=== PATIENT | female | born 1935 | race Caucasian/White ===

== ENCOUNTER 2019-04-09 08:16 | Day surgery (SDC) | payer MEDICARE, OTHER, SELFPAY ==
[2019-02-23 14:57] VITALS: BMI 23.0
[2019-04-09 08:39] VITALS: BP 165/84; PULSE 91; RESP 15; TEMP 36.1; O2SAT 100; BMI 22.5
[2019-04-09] MEDS: LACTATED RINGERS 1,000 ML 120 ML IV ×2 (09:30→10:55)
--- NOTE | 2019-04-09 09:51 | PM.PREOP ---
Pre-operative Note Interval Note History & Physical reviewed/Exam performed by Physician: Yes Changes to H&P: No
--- NOTE | 2019-04-09 09:52 | PM.OP.1 ---
Operative Date/Time/Diagnoses Date of procedure: 04/09/19 Time of procedure: 09:52 Pre-op diagnosis: Right third hammertoe Post-op diagnosis: same Procedure & Clinicians Procedure: Right third toe proximal and distal interphalangeal joint fusion Same procedure as scheduled: Yes Indications: Painful right third hammertoe Surgeon: Diana Theodore Click Yes if Unassisted: Yes Anesthesia Type: MAC +/- and Sedation Operative Notes Closure Type: primary Specimen(s): none sent Prosthetic devices, grafts, tissues, transplants, or devices: [place] 2.0 partially-threaded cannulated screw 4-0 vicryl, 4-0 nylon Estimated Blood Loss (mL): 10 Blood products transfused: none Procedure in detail: The patient was brought to the operating room and placed on the operating table in the supine position. After induction of mild IV sedation, local anesthesia using the injectables in the nursing record is obtained to the 3rd toe of the right foot. A tourniquet was placed about the patient's right ankle. The foot and ankle were prepped and draped in the usual aseptic manner. The tourniquet was inflated. Incision was made over the dorsal aspect of the 3rd proximal and distal interphalangeal joints. The incision was deepened through subcutaneous tissues being careful to identify and retract all vital neurovascular structures. All bleeders were cauterized and ligated necessary. Over the proximal interphalangeal joint, the extensor was reflected proximally and distally and once the collateral ligaments were released the head of the proximal phalanx and the base of the intermediate phalanx were removed using a saw. The same procedure was performed to the distal interphalangeal joint. the area was irrigated with copious amounts of normal sterile saline. The foot was loaded and at this point appeared that alignment would be good without having to do the flexor tendon transfer. Using the aid of C-arm a guidewire was placed at the base of the intermediate phalanx and drawn out to the tip of the toe. This was then retrograded proximally into the proximal phalanx and pressure was placed across the joints. again verifying this on fluoroscopy for good alignment and loading the foot, using standard technique the drill was placed from the distal tip of the toe proximally and after measurements a cannulated 3 screw was placed. This was verified to be in good alignment and compression although there was such a short distal phalanx that there was very little compressibility available here. The guidewire was removed and final pictures were taken in three views on fluoroscopy. Repair of the extensor tendon was performed using Vicryl and the tourniquet was deflated, prompt hyperemic response was seen to the foot. Subcutaneous closure was performed using Vicryl and nylon was used to close the skin. A sterile lightly compressive dressing was placed on the foot and she was transferred to the PACU with vital signs stable and vascular status intact. Complications: none Post-operative Condition: stable Disposition: PACU Plan for aftercare: Following a period of postoperative monitoring, the patient be discharged home on written and oral postoperative instructions including keeping the dressing dry and intact, avoiding significant ambulation on the foot, icing and elevating the foot when seated home. DVT prevention techniques have been reviewed. She did not bring her postoperative shoe today so instructions were given on how to apply this and use it with her safety dressings on today. She also had a chance to visit with physical therapy to verify her strength and confidence in use of her walker. For the 1st postoperative visit the dressing will be likely changed, and close to the 2nd postoperative week we will likely remove the sutures. Standing films closer to the 4th week postoperatively.
[2019-04-09] MEDS: CLINDAMYCIN 600 MG/50 ML PIGGYBACK 50 MG IV (09:58)
--- NOTE | 2019-04-09 10:25 | SUR.OPER ---
Supine on padded OR bed, head on pillow, arms secured on padded arm boards at <90 degrees abduction, legs uncrossed, safety belt at thigh, tape over blanket over lower legs.
[2019-04-09] MEDS: LIDOCAINE 2% INJ MDV 20 ML INJ (10:30)
[2019-04-09] MEDS: BUPIVACAINE 0.5% (PF) VIAL 10 ML INJ (10:31)
[2019-04-09 11:23] VITALS: BP 119/71; PULSE 71; RESP 12; TEMP 36.7; O2SAT 95
--- NOTE | 2019-04-09 11:28 | SUR.PHASEII ---
Patient arrived from OR. Awake, VS stable. Denied pain.
[2019-04-09 11:29] VITALS: BP 134/81; PULSE 84; O2SAT 96
[2019-04-09] MEDS: HYDROCODONE/ACET 5/325 TABLET 1 TAB PO (11:58)
--- NOTE | 2019-04-09 12:20 | PT.IIE ---
Current Diagnoses Corns and callosities (04/09/19) Other hammer toe(s) (acquired), right foot (04/09/19) Pain in right foot (04/09/19) Pain in right toe(s) (04/09/19) Surgery Performed Operation Date: 04/09/19 09:45 Actual Procedures p 3rd toe proximal and distal interphalangeal joint fusion(Right) - Diana Theodore DPM Surgical History (Last Updated 02/23/19 @ 15:02 by Florence Davis RN) Hx of bilateral cataract extraction (Acute ~2012) Physical Therapy Inpatient Evaluation/Re-Eval M1 PT/OT-IP Prior Functional Status Start: 04/09/19 14:56 Freq: NEEDED Status: Active Protocol: Document 04/09/19 12:20 AB (Rec: 04/09/19 15:26 AB [id number]) Medical Review Prior Functional Status Medical History Reviewed Yes Communication able to make needs known Mobility and Gait pt stated that she is independent with all mobilities and ambulation without AD Social History Household Members spouse Living Arrangements House Number of Floors (Floors) One Floor Number of Stairs To Enter/Railing? no step to enter Home Environment Standard Height Toilet,Walk in Shower,Built-In Shower Seat Home Equipment Front Wheel Walker,Hand Held Shower,Grab Bars In Shower Employment Status Retired Additional Social History Comment has a knee scooter M2 PT-IP Current Condition Start: 04/09/19 14:56 Freq: NEEDED Status: Active Protocol: Document 04/09/19 12:20 AB (Rec: 04/09/19 15:26 AB [id number]) Physical Therapy Current Condition Current Condition Evaluation Date 04/09/19 Treatment Diagnosis s/p R 3rd toe prox/dist jt fusion; difficulty in walking Onset Date 04/09/2019 Precautions Brace has post-op shoe Weight Bearing Status Weight Bearing Status Partial Weight Bearing Allowed Weight Bearing Amount (enter % per doctor's instructions: pt or #) (%) can put weight on RLE with foot flat but with least weight possible but can put weight on RLE if needed. M3 PT-IP Subjective Start: 04/09/19 14:56 Freq: NEEDED Status: Active Protocol: Document 04/09/19 12:20 AB (Rec: 04/09/19 15:26 AB [id number]) Subjective Physical Therapy Visit Type Type Initial Evaluation Visit Start Time 12:20 Visit Stop Time 13:01 Total Visit Minutes 41 Number of AUTO WHEEL ALIGNMENT SPECIALIST Visits 0 Physical Therapy Visit Comments Patient Comments pt agreeable to do PT Therapy Pain Assessment Pain Present Pain Present Denied Pain M4 PT-IP Mobility and Gait Start: 04/09/19 14:56 Freq: NEEDED Status: Active Protocol: Document 04/09/19 12:20 AB (Rec: 04/09/19 15:26 AB [id number]) PT-Bed Mobility Assessment Supine to Sit Supine to Sit Independent Sit to Supine Sit to Supine Independent PT-Transfer Assessment Sit to and From Stand Sit to and from Stand Contact Guard Assistance, Minimal Assistance,1 Person Assistance,Use of Upper Extremities Equipment Transfer Assistive Device Gait Belt,Front Wheeled Walker Orthotic/Prosthetic Devices or Brace: No Comments Mobility Comments pt completed supine <>sit independent. educated on weight bearing restrictions on RLE. completed sit <>stand x 5 reps with min A with initial reps but afterwards, was able to complete with CGA and cues. educated spouse to cue pt with restrictions and agreed. Gait training conducted using FWW. attempted NWB RLE initially but pt unable to take a take and maintain. 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 Instructed on how to take steps with weigth bearing restriction. pt requiring mod A initially using FWW ~ 10 ft. instructed pt again and completed ambulation using FWW ~ 25 ft CGA. Pt also has a knee scooter and pt completed ambulation using knee scooter CGA ~ 50 ft. cued for safety especially with turns. pt with decrease safety awareness and requires constant cues for safety. instructed spouse to provide pt necessary assistance and agreed. pt completed sit <>stand x 2 reps and positioning RLE into the knee scooter, requiring CGA to min A. instructed spouse to stabize knee scooter for pt and completed. pt requested to use the toilet and ambulated using knee scooter CGA. required cues for turns. completed toileting SBA. ambulated out towards the bed CGA and cues. Pt and spouse with no further concerns/ questions. informed nurse that PT eval completed. Gait Assessment Gait Gait Assistance Required: Contact Guard Assist,Minimum Assistance Distance (Feet) 50 Able to Maintain Weight Bearing Status Yes During Gait Assistive Devices Assistive Device Gait Belt,Front Wheeled Walker Gait Deviations General Gait Pattern Decreased Stride Length, Decreased Feet Clearance Factors Limiting Gait Function Factors Limiting Gait Function Decreased Activity Tolerance, Decreased Strength,Poor Balance,Poor Safety Awareness Comments Gait Comments pt also use knee scooter pls refer to mobility section for details PT-Balance Assessment Sitting Balance and Reactions Static Sitting Balance Ability Normal Dynamic Sitting Balance Ability Normal Standing Balance and Reactions Static Standing Balance Ability Fair Dynamic Standing Balance Ability Fair Device Used FWW M5 PT-IP Objective Assessments Start: 04/09/19 14:56 Freq: NEEDED Status: Active Protocol: Document 04/09/19 12:20 AB (Rec: 04/09/19 15:26 AB [id number]) Orientation Orientation/Cognition Level of Alertness Alert Orientation Name,Place,Situation Language Function Ability No Deficits Noted Safety Awareness Decreased Safety Awareness Memory Description No Deficits Noted Gross Range of Motion Lower Extremity ROM Assessment Right Impaired Impairments R ankle NT due to recent surgery Strength Lower Extremity Strength Hip 4-/5 Knee 4-/5 Ankle R ankle NT Coordination Assessment Gross Coordination Gross Coordination WNL Sensation Assessment Sensation Gross Sensation WNL Muscle Tone Muscle Tone WNL Yes M6 PT-IP Treatment Start: 04/09/19 14:56 Freq: NEEDED Status: Active Protocol: Document 04/09/19 12:20 AB (Rec: 04/09/19 15:26 AB [id number]) Physical Therapy Treatment Education Education Provided Precautions,Weight Bearing Status,Safety M7 PT-IP Assessment and Plan Start: 04/09/19 14:56 Freq: NEEDED Status: Active Protocol: Document 04/09/19 12:20 AB (Rec: 04/09/19 15:26 AB [id number]) PT Summary Assessment and Plan Potential Rehabilitation Potential Good Status of Condition at Evaluation Stable Summary Impairments Pain,ROM,Strength,Balance, Coordination,Cognition,Bed Mobility,Transfers,Gait, Activity Tolerance Assessment Summary Gait training completed using FWW and knee scooter. educated spouse on how to assist pt. pt plans to go home today and spouse assisting. Goals Transfer Goal Independent,Front Wheeled Walker Gait Goal Independent,Front Wheel Walker Gait Distance 50 Days to Meet Goals 3 Frequency of Treatment Frequency Of Treatment Twice a Day Treatment Plan Physical Therapy Treatment Plan Bed Mobility Training,Transfer Training,Gait Training, Therapeutic Exercise,Balance Retraining,Post Op Education, Discharge Planning,Hot or Cold Pack,Neuromuscular Re-ed, Coordination Retraining,Manual Therapy Recommendations To Nursing Amount of Assist Needed 1 Person Assist Discharge Recommendations PT Discharge Recommendations Home with Assistance, Outpatient PT Transportation Needs at Discharge Private Vehicle
[2019-04-09 12:23] VITALS: BP 131/71; PULSE 81; RESP 16; TEMP 36.1; O2SAT 95
--- NOTE | 2019-04-09 12:30 | SUR.PHASEII ---
PT here to work with patient.
== END 2019-04-09 12:45 | disposition home or self-care (01) ==
PROVIDERS: Referring Provider Podiatrist; Visit Provider Podiatrist
PROC: (CPT 28285; principal; 2019-04-09 09:45)
DX: M20.41 Other hammer toe(s) (acquired), right foot (principal); L84 Corns and callosities
CPT/HCPCS: 28285; 97161; 97530; J2250; J2405; J2704; J3010

== ENCOUNTER 2024-06-03 08:29 | Inpatient (IN) | payer MEDICARE, SELFPAY ==
[2024-06-03] VITALS (9 sets, daily range): BP systolic 134–144; BP diastolic 65–97; PULSE 79–98; RESP 16–28; TEMP 36.3–37.4; O2SAT 89–100; BMI 24.7
--- NOTE | 2024-06-03 08:29 | DI.RAD.S_ITS ---
PROCEDURE: XR HIP W PEL IF DONE LT 2V INDICATIONS: injury TECHNIQUE: AP pelvis with lateral view of the left hip. COMPARISON: None. FINDINGS: Bones: Mildly displaced and impacted transcervical fracture of the left femoral neck. Pelvic ring appears intact. No suspicious bony lesions. Degenerative changes are seen in the included spine and the hips. Soft tissues: The visualized bowel gas pattern is normal. No suspicious soft tissue calcifications. IMPRESSION: Mildly displaced and impacted transcervical fracture of the left femoral neck. Approved by: Quinton Peters M.D. on 06/03/2024 at 9:07
--- NOTE | 2024-06-03 08:38 | ED.FALL ---
HPI - Fall General Chief Complaint: Fall Stated Complaint: fall OOB L hip short/rotated Time Seen by Provider: 06/03/24 08:37 Source: patient Mode of arrival: EMS History of Present Illness HPI Narrative: 88-year-old female with history of pancreatic cancer, left anterior chest Port-A-Cath site, had single round of chemotherapy about 2 weeks ago that made her hair fall out, she has decided to have no further chemotherapy, [place] [facility], PCP had recently retired. This morning had a fall getting out of bed, complained of pain to her left hip. No prior hip surgeries or dislocation or problems with that left hip. No other injuries. Family later arriving thought patient was taking Eliquis chronic anticoagulation, but not aware that she would be taking any warfarin. PCP might now be her palliative care provider on [facility], as her regular PCP had recently retired. Related Data Home Medications Medication Instructions Recorded Confirmed acetaminophen 500 mg tablet 500 mg PO Q6H PRN Pain (Scale 04/09/19 04/09/19 (Tylenol Extra Strength) Score 1-3) cholecalciferol (vitamin D3) 50 50 mcg PO DAILY 04/09/19 04/09/19 mcg (2,000 unit) capsule (Vitamin D3) lorazepam 0.5 mg tablet 0.5 mg PO DAILY PRN Anxiety 04/09/19 04/09/19 multivitamin 1 tab PO DAILY 04/09/19 04/09/19 omeprazole magnesium 20 mg 20 mg PO Q OTHER DAY 04/09/19 04/09/19 tablet,delayed release (Prilosec OTC) vit C 250 mg-vit E 90 mg-zinc 40 1 tab PO BID 04/09/19 04/09/19 mg-copper 1 [id number] capsule (PreserVision AREDS-2) Allergies Allergy/AdvReac Type Severity Reaction Status Date / Time nitrofurantoin Allergy Fever Verified 04/09/19 09:01 [From Macrobid] Penicillins Allergy Verified 04/09/19 09:01 erythromycin base AdvReac Nausea Verified 04/09/19 09:01 indomethacin [From Indocin] AdvReac Dizziness Verified 04/09/19 09:01 Gowyfpe-ZIZ-AnH Reductase AdvReac Verified 04/09/19 09:01 Inhibitor [Cqbbyee-Kjg-Oiu Reductase Inhibitor] Sulfa (Sulfonamide AdvReac Diarrhea Verified 04/09/19 09:01 Antibiotics) Patient History Surgical History (Updated 02/23/19 @ 15:02 by Florence Davis RN) Hx of bilateral cataract extraction (~2011) Social History household members: spouse Smoking Status: Former smoker alcohol intake: current Smoking Status: Former smoker alcohol intake frequency: a few times a month Exam Narrative Exam Narrative: GENERAL: Well-developed patient, in mild distress. HEAD: Atraumatic. Normocephalic. EYES: Pupils equal round and reactive. Extraocular motions intact. No scleral icterus. No injection or drainage. ENT: Nose without bleeding, purulent drainage. Throat without erythema, tonsillar hypertrophy or exudate. Airway patent. NECK: Trachea midline. Non tender CARDIOVASCULAR: Regular rate and rhythm without murmurs, gallops, or rubs. RESPIRATORY: Clear to auscultation. Breath sounds equal bilaterally. No wheezes, rales, or rhonchi. Left upper anterior chest Port-A-Cath, site looks clean without redness or swelling GASTROINTESTINAL: Abdomen soft, non-tender, nondistended. EXTREMITIES: No edema or joint tenderness. BACK: Nontender without deformity or crepitance. No flank tenderness. NEURO: AOx3. Motor functions grossly nonfocal SKIN: No rash or erythema of visible areas Initial Vital Signs Initial Vital Signs: Vital Signs Temperature 98.4 F 06/03/24 08:22 Pulse Rate 90 06/03/24 08:22 Respiratory Rate 16 06/03/24 08:22 Blood Pressure 140/65 06/03/24 08:22 Pulse Oximetry 100 06/03/24 08:22 Oxygen Delivery Method Room Air 06/03/24 08:22 Course Orders Ordered: ED Orders 06/03/24 08:29 XR hip w pel if done LT 2V Stat 06/03/24 08:30 CBC Auto Diff [Complete Blood Count AUTO DIFF] Stat CMP [Comprehensive Metabolic Panel] Stat Prothrombin Time INR Stat 06/03/24 08:59 Urinalysis and Microscopic Stat EKG-12 Lead Stat Acetaminophen (Acetaminophen 325 Mg Tablet) 650 mg PO Q6H PRN PRN Reason: Fever/Mild Pain (1-3) Docusate Sodium (Docusate 100 Mg Capsule) 100 mg PO BID KATHY Hydromorphone HCl (Hydromorphone 0.5 Mg Inj) 0.5 mg IV Q2H PRN PRN Reason: Pain, Severe (7-10) Last Admin: 06/03/24 10:12 Dose: 0.5 mg Documented By: RLS POTASSIUM CHLORIDE IN WATER (Potassium Cl 10 Meq/100 Ml Mari) 10 meq in 100 mls @ 100 mls/hr IV Q1H KATHY Stop: 06/03/24 11:29 Last Admin: 06/03/24 09:48 Dose: 100 mls/hr Documented By: RLS Sodium Chloride (Normal Saline 0.9%) 1,000 mls @ 500 mls/hr IV BOLUS ONE Stop: 06/03/24 11:16 Last Admin: 06/03/24 09:47 Dose: 500 mls/hr Documented By: RLS Sodium Chloride (Normal Saline 0.9%) 1,000 mls @ 100 mls/hr IV CONT KATHY Naloxone HCl (Naloxone 0.4 Mg/Ml Vial) 0.2 mg IV Q2MIN PRN PRN Reason: Opiate Reversal Oxycodone HCl (Oxycodone Ir 10 Mg Tablet) 10 mg PO Q3H PRN PRN Reason: Pain, Severe (7-10) Discontinued Medications Hydromorphone HCl (Hydromorphone 0.5 Mg Inj) 0.5 mg IV NOW ONE Stop: 06/03/24 10:00 Vital Signs Vital signs: Vital Signs - 8 hr 06/03/24 08:22 06/03/24 08:24 06/03/24 08:30 Temperature 98.4 F Pulse Rate 90 90 81 Respiratory Rate 16 22 Blood Pressure 140/65 Pulse Oximetry 100 89 L 98 Oxygen Delivery Method Room Air 06/03/24 08:30 06/03/24 09:00 Temperature Pulse Rate 79 Respiratory Rate 19 Blood Pressure 138/65 Pulse Oximetry 91 Oxygen Delivery Method MDM - Fall Lab Data Attestation: I reviewed the patient's lab results. Lab results narrative: White blood cell count 400, no comparisons. Hemoglobin 9.6 with platelets 64,000. BUN 26 with creatinine 0.74 normal renal function. Sodium 129 with glucose 113 low. Potassium 3.1 low. Serum CO2 26. BUN 26 with creatinine 0.74 noted. Normal liver functions. Albumin 2.4 low. 06/03/24 08:30 06/03/24 08:30 Labs: Lab Results 04/10/25 Range/Units 08:30 WBC 0.4 L* (4.5-11.0) X10^3/uL RBC 2.93 L (4.0-5.2) X10^6/uL Hgb 9.6 L (12.0-16.0) g/dL Hct 28.1 L (36-46) % MCV 96.0 (80-100) fL MCH 32.8 (26-34) PG MCHC 34.2 (30-36) % RDW 15.2 H (11.6-14.8) % Plt Count 64 L (150-400) X10^3/uL Neut % (Auto) 46.4 L (50-75) % Lymph % (Auto) 18.8 L (25-40) % Armstrong % (Auto) 33.4 H (3-14) % Eos % (Auto) 1.3 L (2-4) % Baso % (Auto) 0.1 (0-2) % Neut # (Auto) 200 L (1161-6518) /uL Lymph # (Auto) 100 L (1439-1286) /uL Armstrong # (Auto) 100 (0-900) /uL Eos # (Auto) 0 (0-450) /uL Baso # (Auto) 0 (0-100) /uL PT 27.2 H (9.4-12.5) SECONDS INR 2.5 H (0.9-1.3) Sodium 129 L (137-145) mmol/L Potassium 3.1 L (3.4-5.1) mmol/L Chloride 98 (98-107) mmol/L Carbon Dioxide 26 (22-32) mmol/L BUN 26 H (7-17) mg/dL Creatinine 0.74 (0.52-1.04) mg/dL Estimated GFR > 60 (>60) mL/min BUN/Creatinine Ratio 35.1 H (6-22) Glucose 113 H (80-110) mg/dL Calcium 8.3 L (8.4-10.2) mg/dL Total Bilirubin 1.2 (0.2-1.3) mg/dL AST 23 (14-36) IU/L ALT 26 (<35) IU/L Alkaline Phosphatase 126 (38-126) U/L Total Protein 4.8 L (6.3-8.2) g/dL Albumin 2.5 L (3.5-5.0) g/dL Globulin 2.3 (1.7-4.1) g/dL Albumin/Globulin Ratio 1.1 (1.0-2.8) MDM Narrative Medical decision making narrative: 88-year-old female with history of pancreatic cancer had 1st/only round of IV chemotherapy 2 weeks ago via left anterior chest Port-A-Cath site, has decided not to continue any chemotherapy, followed by palliative care service, had fall getting out of bed this morning at her home on [facility], complains of left hip pain, transport by EMS. Has some shortening left lower extremity compared to right, some tenderness left anterior and left retro trochanteric region. No skin abrasion changes. X-ray left hip/pelvis ordered. X-ray left hip shows impacted femoral neck fracture. See radiology report. Pre-operative studies ordered. Laboratory data: White blood cell count 400, no comparisons. Hemoglobin 9.6 with platelets 64,000. BUN 26 with creatinine 0.74 normal renal function. Sodium 129 with glucose 113 low. Potassium 3.1 low. Serum CO2 26. BUN 26 with creatinine 0.74 noted. Normal liver functions. Albumin 2.4 low. CBC shows white blood cell count 400. Neutropenic precautions ordered. INR elevated, liver functions unremarkable, warfarin not listed on medication triage list. Unclear if patient would be a candidate for surgical intervention. Will not reverse elevated INR for now. Await call back from orthopedic surgery, Dr. Begum is currently in the operating room. We will query hospitalist. Low potassium, IV repletion. Keep NPO until sergical plan clarifed. Hyponatremia noted, IV fluid bolus 500ml NS ordered for now. No comparison labs located in our EHR. 914, case discussed with hospitalist Dr. Ritter who accepts patient for admission, also feels the patient may not be a surgical candidate. He stated that he will coordinate with Orthopedic surgery when out of the operating room. Critical Care Time Critical Care Time Critical Care Time: No Discharge Plan Departure Patient Disposition: Admitted As Inpatient Clinical Impression: Closed fracture of left hip, Neutropenia, History of pancreatic cancer, Hyponatremia, Hypokalemia, Coagulopathy Admit Date/Time: 06/03/24 09:10 Admit Provider: Preet Ritter
[2024-06-03 09:05] LABS: INR 2.5 (0.9-1.3); Prothrombin Time 27.2 SECONDS (9.4-12.5)
[2024-06-03 09:07] LABS: Add Manual Diff / Slide Review NO; Basophils Absolute Auto 0 /uL (0-100); Basophils Percent Auto 0.1 % (0-2); Eosinophils Absolute Auto 0 /uL (0-450); Eosinophils Percent Auto 1.3 % (2-4); Hematocrit 28.1 % (36-46); Hemoglobin 9.6 g/dL (12.0-16.0); Lymphocytes Absolute Auto 100 /uL (1100-4500); Lymphocytes Percent Auto 18.8 % (25-40); Mean Corpuscular HGB Conc 34.2 % (30-36); Mean Corpuscular Hemoglobin 32.8 PG (26-34); Monocytes Absolute Auto 100 /uL (0-900); Monocytes Percent Auto 33.4 % (3-14); Neutrophils Absolute Auto 200 /uL (1500-7000); Neutrophils Percent Auto 46.4 % (50-75); Platelet Count 64 X10^3/uL (150-400); Red Blood Cell Count 2.93 X10^6/uL (4.0-5.2); Red Cell Distribution Width 15.2 % (11.6-14.8)
[2024-06-03 09:09] LABS: White Blood Cell Count 0.4 X10^3/uL (4.5-11.0)
[2024-06-03 09:10] LABS: Alanine Aminotransferase 26 IU/L (<35); Albumin 2.5 g/dL (3.5-5.0); Albumin Globulin Ratio 1.1 (1.0-2.8); Alkaline Phosphatase 126 U/L (38-126); Aspartate Aminotransferase 23 IU/L (14-36); BUN Creatinine Ratio 35.1 (6-22); Bilirubin Total 1.2 mg/dL (0.2-1.3); Blood Urea Nitrogen 26 mg/dL (7-17); Calcium 8.3 mg/dL (8.4-10.2); Carbon Dioxide 26 mmol/L (22-32); Chloride 98 mmol/L (98-107); Estimated Glomerular Filt Rate > 60 mL/min (>60); Globulin 2.3 g/dL (1.7-4.1); Glucose 113 mg/dL (80-110); HEMOLYSIS < 15 (0-50); Potassium 3.1 mmol/L (3.4-5.1); Sodium 129 mmol/L (137-145); Total Protein 4.8 g/dL (6.3-8.2)
[2024-06-03] MEDS: SODIUM CHLORIDE 0.9% 1,000 ML 500 ML IV (09:47)
[2024-06-03] MEDS: POTASSIUM CHLORIDE IN WATER 10 MEQ/100 ML PIGGYBACK 100 MEQ IV ×4 (09:48→21:21)
[2024-06-03] MEDS: HYDROMORPHONE 0.5 MG INJ IV (10:12)
--- NOTE | 2024-06-03 15:01 | PM.HP.1 ---
History of Present Illness History of Present Illness Date Patient Seen: 06/03/24 Chief complaint: fall OOB L hip short/rotated Narrative: Chief complaint: Left hip pain after ground level fall due to impacted femoral neck fracture in a patient with neutropenia following chemotherapy for pancreatic carcinoma and anticoagulated History of present illness: A 62-year-old female with history of pancreatic cancer followed by Dr. Kris pérez at [facility] (telephone [phone]) slipped and fell this morning on her left side with severe hip pain. She was brought to the emergency department were hip film demonstrated impacted femoral neck fracture of the left hip. She is on palliative therapy her PCP has retired and is being followed by palliative care doctor. Patient has been functional however manages her activities of daily living independently including cooking for herself in maintaining her house. In addition to the hip fracture significant findings on evaluation in the ED notable for a white count of 0.4 with 46% neutrophils platelet count of 62 PT INR 2.5 and albumin of 2.5 X-ray was viewed by Orthopedic surgery on-call and if this were to go to surgery it would require bipolar hip replacement Review of systems: General no unusual weight loss fever chills headache No difficulty swallowing dysphagia No chest pain palpitations No cough or shortness a breath new line No abdominal pain nausea vomiting diarrhea No urinary symptoms No focal neurologic symptoms Physical exam: Elderly female no acute distress new line 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 She has an impacted left femoral neck fracture which will require a bipolar hip replacement.: With leukopenia neutropenia presently this would be a high risk surgery. Risk might be mitigated with samaritan of white blood cell count and reversal of coagulopathy. I am waiting a call back from her oncologist to discuss how this might be accomplished. The pharmacy has available here granulocyte colony-stimulating factor Granix and Stimullex 300 mcg. We also have Kcentra and vitamin K and FFP to reverse the anticoagulation from apixaban. Initial discussion with patient and family all of whom were present and in consensus of the following: No emergent surgery necessarily indicated at this time and higher risk than desired to take by the patient Patient would like to possibly mitigate risk with correcting leukopenia and coagulopathy and then consider surgery depending on whether she feels strong enough to undergo the surgery and rehabilitation Paroxysmal atrial fibrillation: On apixaban for CVA prophylaxis which we will hold and reverse anticoagulation if needed new line Currently in sinus rhythm DVT prophylaxis covered with anticoagulation Do not resuscitate Greater than 55 minutes was involved in managing this patient including discussion with multiple consultants reviewing the chart patient and family [facility] Surgical History (Updated 02/23/19 @ 15:02 by Florence Davis RN) Hx of bilateral cataract extraction (~2011) Social History household members: spouse Smoking Status: Former smoker alcohol intake: current Meds Home Medications and Allergies Home Medications Medication Instructions Recorded Confirmed Type acetaminophen 500 mg tablet 500 mg PO Q6H PRN Pain (Scale 04/09/19 06/03/24 History (Tylenol Extra Strength) Score 1-3) cholecalciferol (vitamin D3) 50 50 mcg PO DAILY 04/09/19 06/03/24 History mcg (2,000 unit) capsule (Vitamin D3) vit C 250 mg-vit E 90 mg-zinc 40 1 tab PO BID 04/09/19 06/03/24 History mg-copper 1 [id number] capsule (PreserVision AREDS-2) apixaban 5 mg tablet (Eliquis) 5 mg PO BID 06/03/24 06/03/24 History diltiazem HCl 240 mg 240 mg PO DAILY 06/03/24 06/03/24 History capsule,extended release 24 hr furosemide 20 mg tablet 20 mg PO DAILY PRN edema 06/03/24 06/03/24 History ondansetron 8 mg disintegrating 8 mg PO Q8H PRN nausea/vomiting 06/03/24 06/03/24 History tablet potassium chloride 20 mEq 20 meq PO DAILY 06/03/24 06/03/24 History tablet,extended release Allergies Allergy/AdvReac Type Severity Reaction Status Date / Time nitrofurantoin Allergy Intermediate Fever Verified 06/03/24 13:24 [From Macrobid] Penicillins Allergy Intermediate mouth Verified 06/03/24 13:24 tingling erythromycin base AdvReac Nausea Verified 02/14/20 09:01 indomethacin [From Indocin] AdvReac Dizziness Verified 04/09/19 09:01 Lllhgjo-AST-BrS Reductase AdvReac Verified 04/09/19 09:01 Inhibitor [Nhestny-Vpk-Izt Reductase Inhibitor] Sulfa (Sulfonamide AdvReac Diarrhea Verified 04/09/19 09:01 Antibiotics) Exam Vital Signs (past 8 hours): - 06/03/24 08:22 06/03/24 08:24 06/03/24 08:30 Temperature 98.4 F Pulse Rate 90 90 81 Respiratory Rate 16 22 Blood Pressure 140/65 Pulse Oximetry 100 89 L 98 Oxygen Delivery Method Room Air 06/03/24 08:30 06/03/24 09:00 06/03/24 09:30 Temperature Pulse Rate 79 80 Respiratory Rate 19 24 Blood Pressure 138/65 Pulse Oximetry 91 92 Oxygen Delivery Method 06/03/24 10:00 Temperature Pulse Rate 81 Respiratory Rate 28 H Blood Pressure Pulse Oximetry Oxygen Delivery Method Oxygen Delivery Method Room Air Objective Labs 06/03/24 08:30 06/03/24 08:30 Labs: Laboratory Results - last 24 hr 06/03/24 08:30 WBC 0.4 L* RBC 2.93 L Hgb 9.6 L Hct 28.1 L MCV 96.0 MCH 32.8 MCHC 34.2 RDW 15.2 H Plt Count 64 L Neut % (Auto) 46.4 L Lymph % (Auto) 18.8 L [place] % (Auto) 33.4 H Eos % (Auto) 1.3 L Baso % (Auto) 0.1 Neut # (Auto) 200 L Lymph # (Auto) 100 L [place] # (Auto) 100 Eos # (Auto) 0 Baso # (Auto) 0 PT 27.2 H INR 2.5 H Sodium 129 L Potassium 3.1 L Chloride 98 Carbon Dioxide 26 BUN 26 H Creatinine 0.74 Estimated GFR > 60 BUN/Creatinine Ratio 35.1 H Glucose 113 H Calcium 8.3 L Total Bilirubin 1.2 AST 23 ALT 26 Alkaline Phosphatase 126 Total Protein 4.8 L Albumin 2.5 L Globulin 2.3 Albumin/Globulin Ratio 1.1 Assessment & Plan Time-Based Coding :: [TOTAL MINUTES] spent with patient and on the chart (including review of chart, obtaining history, exam, reviewing outside data, placing orders, documenting exam and treatment plan, and counseling patient) on [DATE].
[2024-06-03] MEDS: OXYCODONE IR 10 MG TABLET PO ×2 (15:07→20:01)
--- NOTE | 2024-06-03 17:40 | PC.NURSE ---
Pt resting quietly sinc arrival to floor. A/O Med once w/ Oxy for pain w/ good relief. SCD in place. Call light w/in reach, bed al;arm on for pt safety. Continue w/polan of care.
[2024-06-03] MEDS: DOCUSATE 100 MG CAPSULE PO (20:01)
[2024-06-03] MEDS: TBO-FILGRASTIM 300 MCG/0.5 ML SYRINGE SUBCUT (20:02)
[2024-06-03] MEDS: SODIUM CHLORIDE 0.9% 1,000 ML 100 ML IV (23:10)
[2024-06-04 02:00] VITALS: BP 117/92; PULSE 102; RESP 18; TEMP 36.6; O2SAT 92
[2024-06-04] MEDS: OXYCODONE IR 10 MG TABLET PO ×2 (05:42→13:55)
--- NOTE | 2024-06-04 08:09 | PM.PN.1 ---
Subjective Subjective Date Patient Seen: 06/04/24 Interval history: Chief complaint: Left hip pain after ground level fall due to impacted femoral neck fracture in a patient with neutropenia following chemotherapy for pancreatic carcinoma and anticoagulated History of present illness: A 62-year-old female with history of pancreatic cancer followed by Dr. Kris pérez at [facility] (telephone [phone]) slipped and fell this morning on her left side with severe hip pain. She was brought to the emergency department were hip film demonstrated impacted femoral neck fracture of the left hip. She is on palliative therapy her PCP has retired and is being followed by palliative care doctor. Patient has been functional however manages her activities of daily living independently including cooking for herself in maintaining her house. In addition to the hip fracture significant findings on evaluation in the ED notable for a white count of 0.4 with 46% neutrophils platelet count of 62 PT INR 2.5 and albumin of 2.5 X-ray was viewed by Orthopedic surgery on-call and if this were to go to surgery it would require bipolar hip replacement Review of systems: General no unusual weight loss fever chills headache No difficulty swallowing dysphagia No chest pain palpitations No cough or shortness a breath new line No abdominal pain nausea vomiting diarrhea No urinary symptoms No focal neurologic symptoms Physical exam: Elderly female no acute distress new line 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 She has an impacted left femoral neck fracture which will require a bipolar hip replacement.: With leukopenia neutropenia presently this would be a high risk surgery. Risk might be mitigated with muslim of white blood cell count and reversal of coagulopathy. I am waiting a call back from her oncologist to discuss how this might be accomplished. The pharmacy has available here granulocyte colony-stimulating factor Granix and Stimullex 300 mcg. We also have Kcentra and vitamin K and FFP to reverse the anticoagulation from apixaban. Initial discussion with patient and family all of whom were present and in consensus of the following: No emergent surgery necessarily indicated at this time and higher risk than desired to take by the patient Patient would like to possibly mitigate risk with correcting leukopenia and coagulopathy and then consider surgery depending on whether she feels strong enough to undergo the surgery and rehabilitation Paroxysmal atrial fibrillation: On apixaban for CVA prophylaxis which we will hold and reverse anticoagulation if needed new line Currently in sinus rhythm DVT prophylaxis covered with anticoagulation Do not resuscitate Greater than 55 minutes was involved in managing this patient including discussion with multiple consultants reviewing the chart patient and family Exam Vital Signs (past 8 hours): - 06/04/24 02:00 Temperature 98 F Pulse Rate 102 H Respiratory Rate 18 Blood Pressure 117/92 H Pulse Oximetry 92 Oxygen Flow Rate 2 Oxygen Delivery Method Room Air Oxygen Flow Rate 2 Objective Labs 06/03/24 08:30 06/03/24 08:30 Labs: Laboratory Results - last 24 hr 06/03/24 08:30 WBC 0.4 L* RBC 2.93 L Hgb 9.6 L Hct 28.1 L MCV 96.0 MCH 32.8 MCHC 34.2 RDW 15.2 H Plt Count 64 L Neut % (Auto) 46.4 L Lymph % (Auto) 18.8 L [place] % (Auto) 33.4 H Eos % (Auto) 1.3 L Baso % (Auto) 0.1 Neut # (Auto) 200 L Lymph # (Auto) 100 L [place] # (Auto) 100 Eos # (Auto) 0 Baso # (Auto) 0 PT 27.2 H INR 2.5 H Sodium 129 L Potassium 3.1 L Chloride 98 Carbon Dioxide 26 BUN 26 H Creatinine 0.74 Estimated GFR > 60 BUN/Creatinine Ratio 35.1 H Glucose 113 H Calcium 8.3 L Total Bilirubin 1.2 AST 23 ALT 26 Alkaline Phosphatase 126 Total Protein 4.8 L Albumin 2.5 L Globulin 2.3 Albumin/Globulin Ratio 1.1 [facility] Surgical History (Updated 02/23/19 @ 15:02 by Florence Davis RN) Hx of bilateral cataract extraction (~2011) Social History household members: spouse Smoking Status: Former smoker alcohol intake: current Assessment & Plan Time-Based Coding :: [TOTAL MINUTES] spent with patient and on the chart (including review of chart, obtaining history, exam, reviewing outside data, placing orders, documenting exam and treatment plan, and counseling patient) on [DATE].
[2024-06-04 09:01] LABS: INR 2.4 (0.9-1.3); Prothrombin Time 26.3 SECONDS (9.4-12.5)
[2024-06-04 09:04] LABS: PTT Partial Thromboplastin Tim 31 SECONDS (25.1-36.5)
[2024-06-04 09:05] LABS: Alanine Aminotransferase 22 IU/L (<35); Albumin 2.1 g/dL (3.5-5.0); Albumin Globulin Ratio 0.9 (1.0-2.8); Alkaline Phosphatase 107 U/L (38-126); Aspartate Aminotransferase 18 IU/L (14-36); BUN Creatinine Ratio 29.9 (6-22); Bilirubin Total 1.1 mg/dL (0.2-1.3); Blood Urea Nitrogen 20 mg/dL (7-17); Carbon Dioxide 21 mmol/L (22-32); Chloride 102 mmol/L (98-107); Estimated Glomerular Filt Rate > 60 mL/min (>60); Globulin 2.4 g/dL (1.7-4.1); Glucose 102 mg/dL (80-110); HEMOLYSIS < 15 (0-50); Potassium 3.3 mmol/L (3.4-5.1); Sodium 130 mmol/L (137-145); Total Protein 4.5 g/dL (6.3-8.2)
[2024-06-04 09:30] LABS: Add Manual Diff / Slide Review NO; Basophils Absolute Auto 0 /uL (0-100); Basophils Percent Auto 0.1 % (0-2); Eosinophils Absolute Auto 0 /uL (0-450); Hematocrit 26.7 % (36-46); Hemoglobin 9.1 g/dL (12.0-16.0); Lymphocytes Absolute Auto 100 /uL (1100-4500); Lymphocytes Percent Auto 18.7 % (25-40); Mean Corpuscular HGB Conc 34.2 % (30-36); Mean Corpuscular Hemoglobin 32.9 PG (26-34); Mean Corpuscular Volume 96.2 fL (80-100); Monocytes Absolute Auto 300 /uL (0-900); Monocytes Percent Auto 64.6 % (3-14); Neutrophils Absolute Auto 100 /uL (1500-7000); Neutrophils Percent Auto 15.6 % (50-75); Platelet Count 66 X10^3/uL (150-400); Red Blood Cell Count 2.77 X10^6/uL (4.0-5.2); Red Cell Distribution Width 15.2 % (11.6-14.8)
[2024-06-04 09:34] LABS: White Blood Cell Count 0.4 X10^3/uL (4.5-11.0)
[2024-06-04] MEDS: DOCUSATE 100 MG CAPSULE PO (09:54)
[2024-06-04] MEDS: POTASSIUM CHLORIDE 20 MEQ TAB 40 MEQ PO ×2 (10:59→20:11)
[2024-06-04 12:35] VITALS: BP 148/67; PULSE 102; RESP 16; TEMP 36.6; O2SAT 93
[2024-06-04] MEDS: PROTHROMBIN CPLX(PCC)4FACT 2,000 UNIT in ISOOSMOTIC VEHICLE 0 ML 516.01 UNIT IV (12:44)
[2024-06-04] MEDS: TBO-FILGRASTIM 300 MCG/0.5 ML SYRINGE SUBCUT (12:44)
--- NOTE | 2024-06-04 13:11 | CM.DANOTE ---
DCP Assessment Note: Pt is a 88yo female, resident of [place], is admitted for a hip fx after a GLF. Pt has a hx of pancreatic CA. Pt lives in a house with her , Tejas. Pt's Primary Care Provider is Dr. Kris Rucker who is also her palliative care provider and insurance is [facility]. Reviewed chart and discussed with multidisciplinary team pt's medical status and initial discharge needs. Per rounds, pt being monitored for possible bipolar hip replacement tomorrow, 06/05, if medically stable as WBCs are currently elevated. DCP met w/patient at bedside; introduced self and role. Present in the room is pt's . Patient was found in bed, alert and oriented, cooperative with assessment. Pt confirmed living situation and good support in . Pt expressed preference in the pending Ortho surgery and dc home with hospice, but agreeable to final recommendations. Pt has no previous hx of admission at a SNF Rehab or home health. Pt states she has been working with [facility] at [facility] (ph# [phone]), She has been basically helping us set up for Hospice. Not open with them yet though. Pt consented to any communication and coordination with [facility]. Plan: Pending clearance for possible surgery on 06/05, following for final recommendations for discharge. CM team will follow closely for coordination of discharge plans. Paty Shepherd [facility] Discharge Planning/Care Management Advanced directive, confirm from FAMILY Start: 06/03/24 12:01 Freq: Q24H Status: Active Protocol: Document 06/04/24 12:47 YAD (Rec: 06/04/24 13:09 YAD [id number]) Advance Directive, confirm on record Time 12:47 Person contacted Pt Copy received No CM Discharge Assessment Start: 06/04/24 13:09 Freq: Status: Active Protocol: Document 06/04/24 13:09 MW (Rec: 06/04/24 13:11 MW [id number]) Discharge Planning Assessment Assigned Intake Assessor MARICEL Newman DPOA/Assigned Designee Name Tejas, Spouse Contact Information [phone] Advance Directives? Yes Advance Directives on File Yes History Provided By Patient,Family Member,Medical Record Has Patient been admitted in last 30 No days? Prior Living Arrangements House Household Members spouse Comment Spouse Type of transporation used prior to Drives own vehicle admit Independent with ADL's Yes Is patient alert and oriented? Yes Caregiver for Another No Referrals Initiated None needed Review Status In Process Please Provide Date Initial DC 06/04/24 Assessment Was Performed Next Review Type Continued Stay Review
[2024-06-04] MEDS: HYDROMORPHONE 0.5 MG INJ IV (16:33)
[2024-06-04] MEDS: SODIUM CHLORIDE 0.9% FLUSH 10 ML IV ×2 (16:33→20:40)
[2024-06-04 20:00] VITALS: BP 151/68; PULSE 103; RESP 14; TEMP 36.1; O2SAT 90
[2024-06-05] VITALS: BP 148/84; PULSE 103; RESP 16; TEMP 36.9; O2SAT 94
[2024-06-05] MEDS: ACETAMINOPHEN 325 MG TABLET 650 MG PO (00:56)
[2024-06-05] MEDS: OXYCODONE IR 10 MG TABLET PO ×3 (00:56→14:38)
[2024-06-05 08:00] VITALS: BP 154/73; PULSE 97; RESP 18; TEMP 36.3; O2SAT 94
--- NOTE | 2024-06-05 08:27 | PM.PN.1 ---
Subjective Subjective Date Patient Seen: 06/05/24 Interval history: Chief complaint: Left hip pain after ground level fall due to impacted femoral neck fracture in a patient with neutropenia following chemotherapy for pancreatic carcinoma and anticoagulated History of present illness: A 62-year-old female with history of pancreatic cancer followed by Dr. Kris pérez at [facility] (telephone [phone]) slipped and fell this morning on her left side with severe hip pain. She was brought to the emergency department were hip film demonstrated impacted femoral neck fracture of the left hip. She is on palliative therapy her PCP has retired and is being followed by palliative care doctor. Patient has been functional however manages her activities of daily living independently including cooking for herself in maintaining her house. In addition to the hip fracture significant findings on evaluation in the ED notable for a white count of 0.4 with 46% neutrophils platelet count of 62 PT INR 2.5 and albumin of 2.5 X-ray was viewed by Orthopedic surgery on-call and if this were to go to surgery it would require bipolar hip replacement Hospital course: 06/04: Pain control is satisfactory white count still only 0.4 discussed with Orthopedic surgery and family and elected to delay until we can get satisfactory white blood cell count and reversal of the anticoagulation. 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 She has an impacted left femoral neck fracture which will require a bipolar hip replacement.: With leukopenia neutropenia presently this would be a high risk surgery. Risk might be mitigated with pentecostalism of white blood cell count and reversal of coagulopathy. I am waiting a call back from her oncologist to discuss how this might be accomplished. The pharmacy has available here granulocyte colony-stimulating factor Granix and Stimullex 300 mcg. We also have Kcentra and vitamin K and FFP to reverse the anticoagulation from apixaban. Initial discussion with patient and family all of whom were present and in consensus of the following: No emergent surgery necessarily indicated at this time and higher risk than desired to take by the patient Patient would like to possibly mitigate risk with correcting leukopenia and coagulopathy and then consider surgery depending on whether she feels strong enough to undergo the surgery and rehabilitation Paroxysmal atrial fibrillation: was On apixaban for CVA prophylaxis which we will hold and reverse anticoagulation if needed new line Currently in sinus rhythm DVT prophylaxis SCDs Code status: Do not resuscitate Greater than 35 minutes was involved in managing this patient including discussion with multiple consultants reviewing the chart patient and family Exam Vital Signs (past 8 hours): - 06/05/24 08:00 Temperature 97.4 F L Pulse Rate 97 H Respiratory Rate 18 Blood Pressure 154/73 H Pulse Oximetry 94 Oxygen Delivery Method Room Air Oxygen Flow Rate 2 Objective Labs 06/04/24 08:39 06/04/24 08:39 Labs: Laboratory Results - last 24 hr 06/04/24 08:39 WBC 0.4 L* RBC 2.77 L Hgb 9.1 L Hct 26.7 L MCV 96.2 MCH 32.9 MCHC 34.2 RDW 15.2 H Plt Count 66 L Neut % (Auto) 15.6 L D Lymph % (Auto) 18.7 L [place] % (Auto) 64.6 H Eos % (Auto) 1.0 L Baso % (Auto) 0.1 Neut # (Auto) 100 L Lymph # (Auto) 100 L [place] # (Auto) 300 Eos # (Auto) 0 Baso # (Auto) 0 PT 26.3 H INR 2.4 H APTT 31 Sodium 130 L Potassium 3.3 L Chloride 102 Carbon Dioxide 21 L BUN 20 H Creatinine 0.67 Estimated GFR > 60 BUN/Creatinine Ratio 29.9 H Glucose 102 Calcium 8.0 L Total Bilirubin 1.1 AST 18 ALT 22 Alkaline Phosphatase 107 Total Protein 4.5 L Albumin 2.1 L Globulin 2.4 Albumin/Globulin Ratio 0.9 L PFSH Surgical History (Updated 02/23/19 @ 15:02 by Florence Davis RN) Hx of bilateral cataract extraction (~2011) Social History household members: spouse Smoking Status: Former smoker alcohol intake: current Assessment & Plan Time-Based Coding :: [TOTAL MINUTES] spent with patient and on the chart (including review of chart, obtaining history, exam, reviewing outside data, placing orders, documenting exam and treatment plan, and counseling patient) on [DATE].
[2024-06-05] MEDS: SODIUM CHLORIDE 0.9% FLUSH 10 ML IV ×2 (09:34→20:28)
[2024-06-05 12:00] VITALS: BP 148/86; PULSE 101; RESP 19; TEMP 37.1; O2SAT 92
[2024-06-05 12:09] LABS: Add Manual Diff / Slide Review NO; Basophils Absolute Auto 0 /uL (0-100); Basophils Percent Auto 0.2 % (0-2); Eosinophils Absolute Auto 0 /uL (0-450); Eosinophils Percent Auto 0.8 % (2-4); Hematocrit 27.4 % (36-46); Hemoglobin 9.5 g/dL (12.0-16.0); Lymphocytes Absolute Auto 100 /uL (1100-4500); Lymphocytes Percent Auto 7.7 % (25-40); Mean Corpuscular HGB Conc 34.6 % (30-36); Mean Corpuscular Hemoglobin 33.2 PG (26-34); Mean Corpuscular Volume 96.1 fL (80-100); Monocytes Absolute Auto 600 /uL (0-900); Monocytes Percent Auto 51.5 % (3-14); Neutrophils Absolute Auto 500 /uL (1500-7000); Neutrophils Percent Auto 39.8 % (50-75); Platelet Count 82 X10^3/uL (150-400); Red Blood Cell Count 2.85 X10^6/uL (4.0-5.2); Red Cell Distribution Width 15.5 % (11.6-14.8)
[2024-06-05 12:15] LABS: White Blood Cell Count 1.2 X10^3/uL (4.5-11.0)
[2024-06-05 12:16] LABS: INR 2.1 (0.9-1.3); Prothrombin Time 23.9 SECONDS (9.4-12.5)
[2024-06-05 12:18] LABS: PTT Partial Thromboplastin Tim 30 SECONDS (25.1-36.5)
[2024-06-05 12:19] LABS: Alanine Aminotransferase 22 IU/L (<35); Albumin 2.2 g/dL (3.5-5.0); Albumin Globulin Ratio 0.9 (1.0-2.8); Alkaline Phosphatase 110 U/L (38-126); Aspartate Aminotransferase 18 IU/L (14-36); BUN Creatinine Ratio 30.6 (6-22); Blood Urea Nitrogen 19 mg/dL (7-17); Calcium 8.4 mg/dL (8.4-10.2); Carbon Dioxide 21 mmol/L (22-32); Chloride 103 mmol/L (98-107); Estimated Glomerular Filt Rate > 60 mL/min (>60); Globulin 2.4 g/dL (1.7-4.1); Glucose 116 mg/dL (80-110); HEMOLYSIS < 15 (0-50); Potassium 4.1 mmol/L (3.4-5.1); Sodium 128 mmol/L (137-145); Total Protein 4.6 g/dL (6.3-8.2)
[2024-06-05 13:09] LABS: Neutrophils Absolute Manual 720 /uL (3000-5900); Total Cells Counted 25
[2024-06-05 13:10] LABS: Anisocytosis 1+; Ovalocytes 1+
[2024-06-05 14:51] LABS: Appearance Urine UA CLOUDY; Bilirubin Urine UA 1+ (NEGATIVE); Color Urine UA YELLOW; Glucose Urine UA NEGATIVE (Negative); Ketones Urine UA 1+ (NEGATIVE); Leukocyte Esterase Urine UA TRACE (NEGATIVE); Nitrite Urine UA POSITIVE (Negative); Occult Blood Urine UA 3+ (Negative); Protein Urine UA 2+ (Negative); Specific Gravity Urine UA 1.025 (1.000-1.035)
[2024-06-05 15:02] LABS: Ictotest Urine Negative (Negative); RBC Urine 30-100/HPF (0-5/HPF); Urine Volume 10mL (spun); WBC Urine 30-100/HPF (0-5/HPF)
[2024-06-05 15:03] LABS: Bacteria Urine Many (>30); Culture Indicated Urine Specimen Cultured; Mucus Urine 1+ (Negative); Squamous Epithelial Cell Urine 0-1 /HPF (0-5/HPF)
[2024-06-05] MEDS: TBO-FILGRASTIM 300 MCG/0.5 ML SYRINGE SUBCUT (15:52)
[2024-06-05] MEDS: PHYTONADIONE (VIT K1) 5 MG TABLET PO (15:55)
[2024-06-05 16:00] VITALS: BP 156/86; PULSE 104; RESP 19; TEMP 36.9; O2SAT 93
--- NOTE | 2024-06-05 16:25 | PC.NURSE ---
Day shift: Pt's brief chnaged today because of small BM. Pt not tolerating much movement for these brief changes over the last 24 hours. MEdicated per APR and that does help but Pt still c/o pain with any movement. That being stated , Pt has developed a quarter sized pressure injury of skin tear on her rt buttox area. This has just now been charted. It is also now covered with an Alyven dressing. Will encourage Pt to let staff turn her Q2 hours. She has been refusing today and at times yesterday. Will pass this along to MD and oncoming RN at shift change. learn to swim instructor Monet is aware as well.
[2024-06-05] MEDS: FUROSEMIDE 20 MG TABLET PO (20:34)
[2024-06-05 20:39] VITALS: BP 121/94; PULSE 105; RESP 16; TEMP 36.4; O2SAT 94
--- NOTE | 2024-06-05 20:39 | PM.PN.1 ---
Subjective Subjective Interval history: Patient is resting comfortably in bed Exam Vital Signs (past 8 hours): - 06/05/24 16:00 Temperature 98.4 F Pulse Rate 104 H Respiratory Rate 19 Blood Pressure 156/86 H Pulse Oximetry 93 Oxygen Flow Rate 2 Oxygen Delivery Method Nasal Cannula Oxygen Flow Rate 2 Objective Labs 06/05/24 08:30 06/05/24 08:30 Labs: Laboratory Results - last 24 hr 06/05/24 06/05/24 06/05/24 08:30 14:35 Unknown WBC 1.2 L* D RBC 2.85 L Hgb 9.5 L Hct 27.4 L MCV 96.1 MCH 33.2 MCHC 34.6 RDW 15.5 H Plt Count 82 L Neut % (Auto) 39.8 L D Lymph % (Auto) 7.7 L [place] % (Auto) 51.5 H Eos % (Auto) 0.8 L Baso % (Auto) 0.2 Neut # (Auto) 500 L Lymph # (Auto) 100 L [place] # (Auto) 600 Eos # (Auto) 0 Baso # (Auto) 0 Total Counted 25 Seg Neutrophils % 40.0 Band Neutrophils % 20.0 H Lymphocytes % (Manual) 16.0 L Monocytes % (Manual) 16.0 H Eosinophils % (Manual) 8.0 H Neutrophils # (Manual) 720 L RBC Morphology See below Anisocytosis 1+ H Ovalocytes 1+ H PT 23.9 H INR 2.1 H APTT 30 Sodium 128 L Potassium 4.1 Chloride 103 Carbon Dioxide 21 L BUN 19 H Creatinine 0.62 Estimated GFR > 60 BUN/Creatinine Ratio 30.6 H Glucose 116 H Calcium 8.4 Total Bilirubin 1.0 AST 18 ALT 22 Alkaline Phosphatase 110 Total Protein 4.6 L Albumin 2.2 L Globulin 2.4 Albumin/Globulin Ratio 0.9 L Urine Color Yellow Urine Appearance Cloudy Urine pH 6.0 Ur Specific [place] 1.025 Urine Protein 2+ H Urine Glucose (UA) Negative Urine Ketones 1+ H Urine Occult Blood 3+ H Urine Nitrate Positive H Urine Bilirubin 1+ H Ur Bilirubin Confirm Negative Urine Urobilinogen 1.0 Ur Leukocyte Esterase Trace H Urine RBC 30-100/hpf H Urine WBC 30-100/hpf H Ur Squamous Epith Cells 0-1 /hpf Urine Bacteria Many (>30) H Urine Mucus 1+ H Ur Culture Indicated? Specimen cultured Vol Urine Centrifuged 10ml (spun) PFSH Surgical History (Updated 02/23/19 @ 15:02 by Florence Davis RN) Hx of bilateral cataract extraction (~2011) Social History household members: spouse Smoking Status: Former smoker alcohol intake: current Assessment & Plan Assessment and plan (1) Closed fracture of left hip: Status: Acute (2) Coagulopathy: Status: Acute (3) Hypokalemia: Status: Acute (4) Hyponatremia: Status: Acute (5) History of pancreatic cancer: Status: Acute (6) Neutropenia: Status: Acute Plan The patient's overall status is reviewed. She is being medically stabilized. She was resting comfortably and as she is not stable for consideration of surgical management I will recheck her tomorrow. Time-Based Coding :: [TOTAL MINUTES] spent with patient and on the chart (including review of chart, obtaining history, exam, reviewing outside data, placing orders, documenting exam and treatment plan, and counseling patient) on [DATE].
[2024-06-06 02:16] VITALS: BP 140/76; PULSE 108; RESP 15; TEMP 36.4; O2SAT 92
[2024-06-06 08:00] VITALS: BP 145/71; PULSE 107; RESP 16; TEMP 37; O2SAT 92
[2024-06-06] MEDS: ACETAMINOPHEN 325 MG TABLET 650 MG PO (08:18)
[2024-06-06] MEDS: VIT C/E/ZN/COPPR/LUTEIN/ZEAXAN CAPSULE 1 CAP PO (08:18)
[2024-06-06] MEDS: dilTIAZem CD 120 MG CAP 240 MG PO (08:18)
[2024-06-06] MEDS: SODIUM CHLORIDE 0.9% FLUSH 10 ML IV ×2 (08:18→20:45)
[2024-06-06 09:07] LABS: Add Manual Diff / Slide Review NO; Basophils Absolute Auto 0 /uL (0-100); Basophils Percent Auto 0.1 % (0-2); Eosinophils Absolute Auto 0 /uL (0-450); Eosinophils Percent Auto 0.3 % (2-4); Hemoglobin 10.2 g/dL (12.0-16.0); Lymphocytes Absolute Auto 100 /uL (1100-4500); Mean Corpuscular Hemoglobin 32.7 PG (26-34); Mean Corpuscular Volume 96.4 fL (80-100); Monocytes Absolute Auto 900 /uL (0-900); Monocytes Percent Auto 18.9 % (3-14); Neutrophils Absolute Auto 3600 /uL (1500-7000); Neutrophils Percent Auto 77.7 % (50-75); Platelet Count 95 X10^3/uL (150-400); Red Blood Cell Count 3.11 X10^6/uL (4.0-5.2); Red Cell Distribution Width 15.6 % (11.6-14.8); White Blood Cell Count 4.6 X10^3/uL (4.5-11.0)
[2024-06-06 09:26] LABS: Alanine Aminotransferase 21 IU/L (<35); Albumin 2.2 g/dL (3.5-5.0); Albumin Globulin Ratio 1.1 (1.0-2.8); Alkaline Phosphatase 125 U/L (38-126); Aspartate Aminotransferase 21 IU/L (14-36); BUN Creatinine Ratio 26.2 (6-22); Bilirubin Total 0.9 mg/dL (0.2-1.3); Blood Urea Nitrogen 17 mg/dL (7-17); Calcium 8.3 mg/dL (8.4-10.2); Carbon Dioxide 24 mmol/L (22-32); Chloride 100 mmol/L (98-107); Estimated Glomerular Filt Rate > 60 mL/min (>60); Glucose 100 mg/dL (80-110); HEMOLYSIS < 15 (0-50); Potassium 4.1 mmol/L (3.4-5.1); Sodium 128 mmol/L (137-145); Total Protein 4.2 g/dL (6.3-8.2)
[2024-06-06 10:28] LABS: INR 1.9 (0.9-1.3); Prothrombin Time 20.7 SECONDS (9.4-12.5)
[2024-06-06] MEDS: PHYTONADIONE (VIT K1) 5 MG TABLET 10 MG PO (12:20)
--- NOTE | 2024-06-06 13:25 | PM.HP.1 ---
History of Present Illness History of Present Illness Date Patient Seen: 06/06/24 Time Patient Seen: 13:30 Date of Onset of Symptoms: 06/03/24 Chief complaint: fall OOB L hip short/rotated Narrative: This is an 88-year-old female with pancreatic cancer who fell at home and noted the acute onset of severe left hip pain. She is normally on palliative care. She was receiving chemo but she did not tolerate the chemo. She was admitted on 06/03/2024. She was noted to be profoundly neutropenic and had an elevated protime and INR. Orthopedic consultation was requested and I have been by several times to check on her but she has been resting comfortably and I waited until today to do a history and physical when she is more awake. She is resting comfortably in bed. She has significant pain when we attempt to turn her. Her is at bedside. She was ambulatory and able to clean her home prior to this fall and she has a strong desire to attempt to return to home and or at least be able to be mobilized out of bed to a chair. She does note significant hip pain when we attempt to mobilize her in turn her. The nurses at bedside and we discussed issues related to preventing a decubiti while we are waiting medical stabilization. [facility] Surgical History Hx of bilateral cataract extraction (~2011) Social History household members: spouse Smoking Status: Former smoker alcohol intake: current Meds Home Medications and Allergies Home Medications Medication Instructions Recorded Confirmed Type acetaminophen 500 mg tablet 500 mg PO Q6H PRN Pain (Scale 04/09/19 06/03/24 History (Tylenol Extra Strength) Score 1-3) cholecalciferol (vitamin D3) 50 50 mcg PO DAILY 04/09/19 06/03/24 History mcg (2,000 unit) capsule (Vitamin D3) vit C 250 mg-vit E 90 mg-zinc 40 1 tab PO BID 04/09/19 06/03/24 History mg-copper 1 bo-oslnln-lizxhm capsule (PreserVision AREDS-2) apixaban 5 mg tablet (Eliquis) 5 mg PO BID 06/03/24 06/03/24 History diltiazem HCl 240 mg 240 mg PO DAILY 06/03/24 06/03/24 History capsule,extended release 24 hr furosemide 20 mg tablet 20 mg PO DAILY PRN edema 06/03/24 06/03/24 History ondansetron 8 mg disintegrating 8 mg PO Q8H PRN nausea/vomiting 06/03/24 06/03/24 History tablet potassium chloride 20 mEq 20 meq PO DAILY 06/03/24 06/03/24 History tablet,extended release Allergies Allergy/AdvReac Type Severity Reaction Status Date / Time nitrofurantoin Allergy Intermediate Fever Verified 06/03/24 13:24 [From Macrobid] Penicillins Allergy Intermediate mouth Verified 06/03/24 13:24 tingling erythromycin base AdvReac Nausea Verified 04/09/19 09:01 indomethacin [From Indocin] AdvReac Dizziness Verified 04/09/19 09:01 Itcxmvd-LVA-GwJ Reductase AdvReac Verified 04/09/19 09:01 Inhibitor [Ohntgzn-Kop-Txr Reductase Inhibitor] Sulfa (Sulfonamide AdvReac Diarrhea Verified 04/09/19 09:01 Antibiotics) Review of Systems Review of Systems Narrative: She did not have chest pain and was not lightheaded prior to the fall. She notes left hip pain but is not having pains elsewhere. Exam Vital Signs (past 8 hours): - 06/06/24 08:00 Temperature 98.6 F Pulse Rate 107 H Respiratory Rate 16 Blood Pressure 145/71 H Pulse Oximetry 92 Oxygen Flow Rate 0 Oxygen Delivery Method Nasal Cannula Oxygen Flow Rate 0 Narrative Exam Narrative: HEENT is benign, she was mildly cachectic, cor regular rate and rhythm, lungs clear, abdomen is slightly distended but benign, left lower extremity foreshortening of the left hip, pain with range of motion, she is able to fire her toe flexors and extensors distally, slight swelling in bilateral calves but no focal tenderness, skin okay Objective Labs 06/06/24 08:30 06/06/24 08:30 Labs: Laboratory Results - last 24 hr 06/05/24 06/06/24 06/06/24 14:35 08:30 10:03 WBC 4.6 D RBC 3.11 L Hgb 10.2 L Hct 30.0 L MCV 96.4 MCH 32.7 MCHC 34.0 RDW 15.6 H Plt Count 95 L Neut % (Auto) 77.7 H D Lymph % (Auto) 3.0 L [place] % (Auto) 18.9 H Eos % (Auto) 0.3 L Baso % (Auto) 0.1 Neut # (Auto) 3600 Lymph # (Auto) 100 L [place] # (Auto) 900 Eos # (Auto) 0 Baso # (Auto) 0 PT 20.7 H INR 1.9 H Sodium 128 L Potassium 4.1 Chloride 100 Carbon Dioxide 24 BUN 17 Creatinine 0.65 Estimated GFR > 60 BUN/Creatinine Ratio 26.2 H Glucose 100 Calcium 8.3 L Total Bilirubin 0.9 AST 21 ALT 21 Alkaline Phosphatase 125 Total Protein 4.2 L Albumin 2.2 L Globulin 2.0 Albumin/Globulin Ratio 1.1 Urine Color Yellow Urine Appearance Cloudy Urine pH 6.0 Ur Specific [place] 1.025 Urine Protein 2+ H Urine Glucose (UA) Negative Urine Ketones 1+ H Urine Occult Blood 3+ H Urine Nitrate Positive H Urine Bilirubin 1+ H Ur Bilirubin Confirm Negative Urine Urobilinogen 1.0 Ur Leukocyte Esterase Trace H Urine RBC 30-100/hpf H Urine WBC 30-100/hpf H Ur Squamous Epith Cells 0-1 /hpf Urine Bacteria Many (>30) H Urine Mucus 1+ H Ur Culture Indicated? Specimen cultured Vol Urine Centrifuged 10ml (spun) x-rays from 410 25 left femoral neck fracture displaced with significant shortening, short x-ray with which does not include significant amount of the proximal femur on left Assessment & Plan Assessment and plan (1) Coagulopathy: Status: Acute (2) Hypokalemia: Status: Acute (3) Hyponatremia: Status: Acute (4) History of pancreatic cancer: Status: Acute (5) Closed fracture of left hip: Qualifiers: Encounter type: initial encounter Qualified Code(s): S72.002A - Fracture of unspecified part of neck of left femur, initial encounter for closed fracture Status: Acute Plan I have recommended a left hip unipolar replacement cemented. I discussed her in detail with the hospitalist he feels that he needs several additional days to further stabilize her to make her as safe as possible for surgery. We are tentatively planning for surgery on either Friday or possibly Friday. I am available Friday and Dr. Keller potentially could be available on Friday. The procedure options risks benefits and complications were discussed with the patient and her . Multiple attempts to have been made to contact the patient's oncologist. She has known pancreatic cancer but she would like to be mobilized out of bed to a chair and she would like to walk if possible. The hospitalist is working on stabilizing her medical problems and she is clearly improving. Options risks benefits and complications discussed in detail. She does need a new left femur x-ray to make sure there is no additional pathological problems in the femur and because her baseline x-ray was too short to allow evaluation of safe implantation of the component. We will get her scheduled for Friday or Friday depending upon her clinical course. Time-Based Coding :: [TOTAL MINUTES] spent with patient and on the chart (including review of chart, obtaining history, exam, reviewing outside data, placing orders, documenting exam and treatment plan, and counseling patient) on [DATE].
[2024-06-06] MEDS: OXYCODONE IR 10 MG TABLET PO (13:35)
--- NOTE | 2024-06-06 13:56 | DI.RAD.S_ITS ---
PROCEDURE: XR FEMUR LT MIN 2V INDICATIONS: left hip fracture TECHNIQUE: 2 views of the femur were acquired. COMPARISON: [facility], CR, XR HIP W PEL IF DONE LT 2V, 06/03/2024, 8:31. FINDINGS: Bones: There is an irregular transcervical left femoral neck fracture again seen. No distal left femur fracture is seen. Age-appropriate bony degenerative changes are seen. Soft tissues: No suspicious soft tissue calcifications or masses. Atherosclerotic calcification is noted. IMPRESSION: Stable transcervical left femoral neck fracture. No more distal femur fracture is seen. Dictated by: Shaun Banks M.D. on 06/06/2024 at 13:48 Approved by: Shaun Banks M.D. on 06/06/2024 at 13:48
--- NOTE | 2024-06-06 14:30 | P.PN_ITS ---
Subjective Subjective Date Patient Seen: 06/06/24 Interval history: Chief complaint: Left hip pain after ground level fall due to impacted femoral neck fracture in a patient with neutropenia following chemotherapy for pancreatic carcinoma and anticoagulated History of present illness: A 62-year-old female with history of pancreatic cancer followed by Dr. Kris rucker at [facility] (telephone [phone]) slipped and fell this morning on her left side with severe hip pain. She was brought to the emergency department were hip film demonstrated impacted femoral neck fracture of the left hip. She is on palliative therapy her PCP has retired and is being followed by palliative care doctor. Patient has been functional however manages her activities of daily living independently including cooking for herself in maintaining her house. In addition to the hip fracture significant findings on evaluation in the ED notable for a white count of 0.4 with 46% neutrophils platelet count of 62 PT INR 2.5 and albumin of 2.5 X-ray was viewed by Orthopedic surgery on-call and if this were to go to surgery it would require bipolar hip replacement Past medical history: History obtained from son regarding pancreatic cancer: Small pancreatic cyst by his report was detected 2 years ago early 2022 pancreatic cyst that was referred to [facility] that performed an endoscopic ultrasound with biopsy. Patient underwent 3 rounds of chemotherapy but tolerated this poorly. Patient underwent CyberKnife of the pancreatic tumor. Hepatic metastases were detected in subsequent follow-up 2023. Patient underwent radioactive seed implantation per angiography of each of the hepatic metastases. At [facility] Recurrence in in winter of 2023 was treated with chemotherapy by [facility] Dr. Lurdes Rucker for 3 rounds last of which was very poorly tolerated with diarrhea and syncope at the end of April 2024. At this point patient elected for no further treatment of pancreatic carcinoma. Hospital course: 06/04: Pain control is satisfactory white count still only 0.4 discussed with Orthopedic surgery and family and elected to delay until we can get satisfactory white blood cell count and reversal of the anticoagulation. Pharmacy consulted for dosing of Kcentra. Oral vitamin KA given for suspicion of vitamin K depletion after last chemotherapy as the cause of the elevated PT INR 06/05: No acute distress today pain control the satisfactory white blood cell count 4.6 PT INR de-escalated from 2.5-1.9 after 5 mg of p.o. vitamin K. we will check another CBC expect to see continued escalation of white blood cell count after the previous 3 doses of granulocyte colony-stimulating factor and another dose of oral vitamin K 10 mg to correct the coagulopathy for a suspected vitamin K deficiency following chemotherapy. Per discussion with Orthopedic surgery patient maybe optimized for surgery by Friday the goal white blood cell count of 7 at goal PT INR of 1.4 or less Review of systems: General no unusual weight loss fever chills headache No difficulty swallowing dysphagia No chest pain palpitations No cough or shortness a breath new line No abdominal pain nausea vomiting diarrhea No urinary symptoms No focal neurologic symptoms Physical exam: Elderly female no acute distress new line Alopecia from chemotherapy otherwise HEENT unremarkable new line Neck no carotid bruits no thyromegaly Heart rate and rhythm regular no murmurs Lungs clear from apices to bases new line Abdomen nontender nondistended bowel sounds present new line Left leg is rotated outward normal dorsalis pedis pulses and capillary refill in both feet Assessment and plan: 88-year-old female who just had chemotherapy 05/25/2024 and has elected no more further chemotherapy as it is not tolerable to her. She has an impacted left femoral neck fracture due to a ground level fall which will require a bipolar hip replacement.: Target for surgery 06/08 or possibly Friday 06/09 Neutropenia secondary to chemotherapy: Good response to 3 doses of granulocyte colony stimulation factor white blood cell count is now 4.6 and absolute neutrophil count 3600 Expect continued escalation of neutrophil count should not require further doses of G-CSF we will hold today to avoid overshooting I have left messages with Dr. Kris rucker at [facility] (telephone [phone]) can call again Friday to touch base Coagulopathy PT INR 2.7 Possibly effect of apixaban but favor vitamin K depletion following 3 rounds of chemotherapy (PT INR did not correct significantly after Kcentra dosed pharmacy) PT INR improved to 1.9 with 1st dose of vitamin K 5 mg p.o. administering a 2nd dose of vitamin K 10 mg p.o. and recheck PT INR 06/07 Paroxysmal atrial fibrillation: was on apixaban which was reversed with Kcentra Currently in sinus rhythm DVT prophylaxis SCDs Code status: Do not resuscitate Greater than 35 minutes was involved in managing this patient including discussion with multiple consultants reviewing the chart patient and family Exam Vital Signs (past 8 hours): - 06/06/24 08:00 Temperature 98.6 F Pulse Rate 107 H Respiratory Rate 16 Blood Pressure 145/71 H Pulse Oximetry 92 Oxygen Flow Rate 0 Oxygen Delivery Method Nasal Cannula Oxygen Flow Rate 0 Objective Labs 06/06/24 08:30 06/06/24 08:30 Labs: Laboratory Results - last 24 hr 06/05/24 06/06/24 06/06/24 14:35 08:30 10:03 WBC 4.6 D RBC 3.11 L Hgb 10.2 L Hct 30.0 L MCV 96.4 MCH 32.7 MCHC 34.0 RDW 15.6 H Plt Count 95 L Neut % (Auto) 77.7 H D Lymph % (Auto) 3.0 L [place] % (Auto) 18.9 H Eos % (Auto) 0.3 L Baso % (Auto) 0.1 Neut # (Auto) 3600 Lymph # (Auto) 100 L [place] # (Auto) 900 Eos # (Auto) 0 Baso # (Auto) 0 PT 20.7 H INR 1.9 H Sodium 128 L Potassium 4.1 Chloride 100 Carbon Dioxide 24 BUN 17 Creatinine 0.65 Estimated GFR > 60 BUN/Creatinine Ratio 26.2 H Glucose 100 Calcium 8.3 L Total Bilirubin 0.9 AST 21 ALT 21 Alkaline Phosphatase 125 Total Protein 4.2 L Albumin 2.2 L Globulin 2.0 Albumin/Globulin Ratio 1.1 Urine Color Yellow Urine Appearance Cloudy Urine pH 6.0 Ur Specific [place] 1.025 Urine Protein 2+ H Urine Glucose (UA) Negative Urine Ketones 1+ H Urine Occult Blood 3+ H Urine Nitrate Positive H Urine Bilirubin 1+ H Ur Bilirubin Confirm Negative Urine Urobilinogen 1.0 Ur Leukocyte Esterase Trace H Urine RBC 30-100/hpf H Urine WBC 30-100/hpf H Ur Squamous Epith Cells 0-1 /hpf Urine Bacteria Many (>30) H Urine Mucus 1+ H Ur Culture Indicated? Specimen cultured Vol Urine Centrifuged 10ml (spun) PFSH Surgical History Hx of bilateral cataract extraction (~2011) Social History household members: spouse Smoking Status: Former smoker alcohol intake: current Assessment & Plan Time-Based Coding :: [TOTAL MINUTES] spent with patient and on the chart (including review of chart, obtaining history, exam, reviewing outside data, placing orders, documenting exam and treatment plan, and counseling patient) on [DATE].
--- NOTE | 2024-06-06 15:36 | PC.NURSE ---
Pt resting in bed visiting with Spouse and family. Bathed and repositioned in bed with waffle cushion, bridging, and heel protectors. Linen and gown changed. Allevyn in place on bottom and without drainage. Heels floated. Pt denies needs at this time and agrees to call for assistance as needed.
--- NOTE | 2024-06-06 16:47 | CM.DPNOTE ---
DCP note BOX REPAIRER reviewed EMR per provider in morning rounds, pt not yet optimal medically for surgery, shooting for or Fri. CM team will continue to follow closely post op for DCP coordination. will coordinate with Kalpana Lynn [facility] MA[facility] BARBER at [facility] (ph# [phone]) and discharging home with hospice services. will need hospice preferences. Anticiapte dc home with hospice services and family. Primary contact spouse Tejas. Will continue to follow close for final DCP recs. Lucinda Quintero, MARICEL
[2024-06-06 19:00] VITALS: BP 141/70; PULSE 94; RESP 16; TEMP 37.6; O2SAT 91
[2024-06-06 20:50] VITALS: TEMP 37.2; O2SAT 95
[2024-06-06 22:02] VITALS: O2SAT 95
[2024-06-07 08:00] VITALS: BP 136/76; PULSE 101; RESP 19; TEMP 36.8; O2SAT 93
[2024-06-07] MEDS: dilTIAZem CD 120 MG CAP 240 MG PO (08:33)
[2024-06-07] MEDS: cefTRIAXone 1,000 MG in SODIUM CHLORIDE 0.9% 100 ML 200 MG IV (08:33)
[2024-06-07] MEDS: DOCUSATE 100 MG CAPSULE PO ×2 (08:33→20:51)
[2024-06-07] MEDS: VIT C/E/ZN/COPPR/LUTEIN/ZEAXAN CAPSULE 1 CAP PO (08:33)
[2024-06-07] MEDS: SODIUM CHLORIDE 0.9% FLUSH 10 ML IV ×2 (08:34→20:52)
[2024-06-07 08:57] LABS: Hematocrit 33.7 % (36-46); Hemoglobin 11.5 g/dL (12.0-16.0); Mean Corpuscular HGB Conc 34.2 % (30-36); Mean Corpuscular Hemoglobin 32.9 PG (26-34); Mean Corpuscular Volume 96.2 fL (80-100); Platelet Count 121 X10^3/uL (150-400); Red Blood Cell Count 3.51 X10^6/uL (4.0-5.2); Red Cell Distribution Width 15.8 % (11.6-14.8); White Blood Cell Count 9.8 X10^3/uL (4.5-11.0)
[2024-06-07 08:58] LABS: Add Manual Diff / Slide Review YES
[2024-06-07 09:09] LABS: Neutrophils Absolute Manual 8526 /uL (3000-5900); Total Cells Counted 100
[2024-06-07 09:10] LABS: Anisocytosis 1+
[2024-06-07 09:11] LABS: Alanine Aminotransferase 24 IU/L (<35); Albumin 2.5 g/dL (3.5-5.0); Alkaline Phosphatase 151 U/L (38-126); Aspartate Aminotransferase 31 IU/L (14-36); Bilirubin Total 0.8 mg/dL (0.2-1.3); Blood Urea Nitrogen 17 mg/dL (7-17); Calcium 8.4 mg/dL (8.4-10.2); Carbon Dioxide 24 mmol/L (22-32); Chloride 99 mmol/L (98-107); Estimated Glomerular Filt Rate > 60 mL/min (>60); Globulin 2.4 g/dL (1.7-4.1); Glucose 110 mg/dL (80-110); HEMOLYSIS 19 (0-50); Potassium 4.3 mmol/L (3.4-5.1); Sodium 129 mmol/L (137-145); Total Protein 4.9 g/dL (6.3-8.2)
[2024-06-07 10:17] LABS: INR 1.6 (0.9-1.3); Prothrombin Time 17.8 SECONDS (9.4-12.5)
--- NOTE | 2024-06-07 13:36 | PC.WOUNDPHOT ---
Wound Pictures Open area on left buttock, allevyn dressing placed over open area and placed in gluteal cleft.
--- NOTE | 2024-06-07 14:25 | PM.PN.1 ---
Subjective Subjective Interval history: Chief complaint: Left hip pain after ground level fall due to impacted femoral neck fracture in a patient with neutropenia following chemotherapy for pancreatic carcinoma and anticoagulated History of present illness: A 62-year-old female with history of pancreatic cancer followed by Dr. Kris rucker at [facility] (telephone [phone]) slipped and fell this morning on her left side with severe hip pain. She was brought to the emergency department were hip film demonstrated impacted femoral neck fracture of the left hip. She is on palliative therapy her PCP has retired and is being followed by palliative care doctor. Patient has been functional however manages her activities of daily living independently including cooking for herself in maintaining her house. In addition to the hip fracture significant findings on evaluation in the ED notable for a white count of 0.4 with 46% neutrophils platelet count of 62 PT INR 2.5 and albumin of 2.5 X-ray was viewed by Orthopedic surgery on-call and if this were to go to surgery it would require bipolar hip replacement Past medical history: History obtained from son regarding pancreatic cancer: Small pancreatic cyst by his report was detected 2 years ago early 2022 pancreatic cyst that was referred to [facility] that performed an endoscopic ultrasound with biopsy. Patient underwent 3 rounds of chemotherapy but tolerated this poorly. Patient underwent CyberKnife of the pancreatic tumor. Hepatic metastases were detected in subsequent follow-up 2023. Patient underwent radioactive seed implantation per angiography of each of the hepatic metastases. At [facility] Recurrence in in winter was treated with chemotherapy by [facility] Dr. Lurdes Rucker for 3 rounds last of which was very poorly tolerated with diarrhea and syncope at the end of April 2024. At this point patient elected for no further treatment of pancreatic carcinoma. Hospital course: 06/04: Pain control is satisfactory white count still only 0.4 discussed with Orthopedic surgery and family and elected to delay until we can get satisfactory white blood cell count and reversal of the anticoagulation. Pharmacy consulted for dosing of Kcentra. Oral vitamin KA given for suspicion of vitamin K depletion after last chemotherapy as the cause of the elevated PT INR 06/05: No acute distress today pain control the satisfactory white blood cell count 4.6 PT INR de-escalated from 2.5-1.9 after 5 mg of p.o. vitamin K. we will check another CBC expect to see continued escalation of white blood cell count after the previous 3 doses of granulocyte colony-stimulating factor and another dose of oral vitamin K 10 mg to correct the coagulopathy for a suspected vitamin K deficiency following chemotherapy. Per discussion with Orthopedic surgery patient maybe optimized for surgery by Friday the goal white blood cell count of 7 at goal PT INR of 1.4 or less 06/07: no complaints from patient, INR is much improved and WBC cound improved. Plan for OR tomorrow. Exam Vital Signs (past 8 hours): - 06/07/24 08:00 Temperature 98.3 F Pulse Rate 101 H Respiratory Rate 19 Blood Pressure 136/76 Pulse Oximetry 93 Oxygen Flow Rate 2.5 Fraction of Inspired Oxygen 28 SaO2/FiO2 Ratio 339 Oxygen Delivery Method Nasal Cannula Oxygen Flow Rate 2.5 Narrative Exam Narrative: Elderly female no acute distress, chronically ill appearing Alopecia from chemotherapy otherwise HEENT unremarkable new line Heart rate and rhythm regular no murmurs Lungs clear from apices to bases new line Abdomen nontender nondistended Ext: chronic non-pitting edema. Objective Labs 06/07/24 08:42 06/07/24 08:42 Labs: Laboratory Results - last 24 hr 06/07/24 06/07/24 08:42 09:55 WBC 9.8 D RBC 3.51 L Hgb 11.5 L Hct 33.7 L MCV 96.2 MCH 32.9 MCHC 34.2 RDW 15.8 H Plt Count 121 L Neut % (Auto) Not Reportable Lymph % (Auto) Not Reportable [place] % (Auto) Not Reportable Eos % (Auto) Not Reportable Baso % (Auto) Not Reportable Lymph # (Auto) Not Reportable [place] # (Auto) Not Reportable Baso # (Auto) Not Reportable Total Counted 100 Seg Neutrophils % 48.0 Band Neutrophils % 39.0 H Lymphocytes % (Manual) 1.0 L Monocytes % (Manual) 10.0 Metamyelocytes % 2.0 H Neutrophils # (Manual) 8526 H RBC Morphology See below Anisocytosis 1+ H PT 17.8 H INR 1.6 H Sodium 129 L Potassium 4.3 Chloride 99 Carbon Dioxide 24 BUN 17 Creatinine 0.63 Estimated GFR > 60 BUN/Creatinine Ratio 27.0 H Glucose 110 Calcium 8.4 Total Bilirubin 0.8 AST 31 ALT 24 Alkaline Phosphatase 151 H Total Protein 4.9 L Albumin 2.5 L Globulin 2.4 Albumin/Globulin Ratio 1.0 [facility] Surgical History Hx of bilateral cataract extraction (~2011) Social History household members: spouse Smoking Status: Former smoker alcohol intake: current Assessment & Plan Assessment & Plan narrative: Assessment and plan: 88-year-old female H pancreatic cancer , admitted with L femoral neck fracture. who just had chemotherapy 05/25/2024 and has elected no more further chemotherapy as it is not tolerable to her. 1) left femoral neck fracture, pathologic due to a ground level fall, acute, POA NPO @ [place] placed discussed with orthopedics today, OR planned for tomorrow. Neutropenia secondary to chemotherapy: Good response to 3 doses of granulocyte colony stimulation factor white blood cell count is now 4.6 and absolute neutrophil count 3600 Expect continued escalation of neutrophil count should not require further doses of G-CSF we will hold today to avoid overshooting Coagulopathy PT INR 2.7 Possibly effect of apixaban but favor vitamin K depletion following 3 rounds of chemotherapy (PT INR did not correct significantly after Kcentra dosed pharmacy) PT INR improved to 1.9 with 1st dose of vitamin K 5 mg p.o. and gave 06/06 10 mg dose as well. INR is 1.6 today. Paroxysmal atrial fibrillation: was on apixaban which has been held. Was given Kcentra initially on admission. Currently in sinus rhythm Chronic hyponatremia, stable Metastatic pancreatic cancer to the liver - follows with oncology at multiple locations per chart review.' Acute respiratory failure with hypoxia - not normally on O2 - patient on exam today requiring 2L, desat to 88% on room air at rest - no CXR done, will check CXR today. Minimal symptoms. - consider diuresis Code: DNR, surrogate is patient's spouse DVT: SCDs. Resume home apixaban after OR. I have utilized all available immediate resources to obtain, update, or review the patient's current medications. Dispo: patient admitted under inpatient status. Likely SNF, but PT/OT evaluations not until after surgery, likely on 06/09. Additional history obtained via discussions with the ER provider. These discussions contributed to the creation of the above assessment and plan. I have reviewed patient's presenting documentation, labs, and imaging personally. Time-Based Coding :: [TOTAL MINUTES] spent with patient and on the chart (including review of chart, obtaining history, exam, reviewing outside data, placing orders, documenting exam and treatment plan, and counseling patient) on [DATE].
--- NOTE | 2024-06-07 14:39 | DI.RAD.S_ITS ---
PROCEDURE: XR CHEST 1V INDICATIONS: hypoxia, shortness of breath TECHNIQUE: One view of the chest was acquired. COMPARISON: Outside Film, CT, CT CHEST ABDOMEN PELVIS WITH CONTRAST, 08/18/2023, 13:15. FINDINGS: Surgical changes and devices: Left chest wall port tip projects over the low SVC. Lungs and pleura: Ill-defined ground-glass throughout the lungs. Mediastinum: Mediastinal contours appear normal. Heart size is normal. Bones and chest wall: No suspicious bony lesions. Overlying soft tissues appear unremarkable. IMPRESSION: Ill-defined ground-glass throughout the lungs, concerning for drug reaction or atypical infection /viral pneumonia. Dictated by: Flavio Louise M.D. on 06/07/2024 at 15:36 Approved by: Flavio Louise M.D. on 06/07/2024 at 15:38
--- NOTE | 2024-06-07 15:20 | CM.DPNOTE ---
DCP note PATTERNMAKER HAND reviewed EMR per provider in morning rounds, anticipate surgery tomorrow. Per RN, labs greatly improved/stabilized. PATTERNMAKER HAND spoke with Beto from [facility] ((ph# [phone]) RN/CM. Confirmed were starting getting set up with [facility]. confirm pt is DNR selective treatment, emailed copy of POLST. PATTERNMAKER HAND gave RN copy of POLST, will talk with provider about changing pt's status from Full Code per pt's previously stated wishes. PATTERNMAKER HAND met with pt, spouse, and spouse's dtr Toya ([phone]) in room. pt gave permission for this PATTERNMAKER HAND to coordinate with spouse/Toya. pt laying in bed with head under blanket during interaction. Spouse/Toya confirm waiting to see what post op recs are after surgery. at this point, leaning towards preference for SNF rather than dc home with [facility] straight away. PATTERNMAKER HAND reviewed SNF options ([facility]). per spouse/Toya, SNF preferences are 1) [facility] in [place] 2) SNF in [facility] (other local family lives in [place] [facility] [place]) 3) [facility]. SPouse/Toya expressed understanding that [facility] is not in contract with [facility] but hopeful for one time auth. Asked for pt to meet with [place] prior to surgery if available, pt is Christian. PATTERNMAKER HAND spoke with Andrea, vendor relationship manager michael. Will plan to visit later this afternoon. Passed update along to Spouse/Toya. PATTERNMAKER HAND spoke with Felecia from [facility], [facility] often will allow auth but due to it being out of network families have to often pay privately for 40% of the cost ($385/day without therapies and would submit for auth for therapies separately). Referral information needs to be sent to [facility]/PASRR needed/auth needed/transport needed. pending post op. P: pending surgical post op recs/pt preference, home with [facility] (ref needed) vs SNF ([facility] pref, send ref information when available). CM team will continue to follow closely for DCP coordination MARICEL Araya
[2024-06-07 19:00] VITALS: BP 137/67; PULSE 99; RESP 14; TEMP 36.6; O2SAT 92
[2024-06-07 23:45] VITALS: O2SAT 92
[2024-06-08 08:00] VITALS: BP 133/70; PULSE 98; RESP 16; TEMP 36.3; O2SAT 99
--- NOTE | 2024-06-08 08:18 | PM.PREOP ---
Pre-operative Note Interval Note History & Physical reviewed/Exam performed by Physician: Yes Changes to H&P: No H&P completed within 30 days and has changed as indicated here:: Patient was resting comfortably in bed. She is a little more confused than she was yesterday but she is appropriate and asked appropriate questions. She has adequate breath sounds with a few crackles, no wheezing.
[2024-06-08 08:44] LABS: Add Manual Diff / Slide Review NO; Basophils Absolute Auto 0 /uL (0-100); Basophils Percent Auto 0.2 % (0-2); Eosinophils Absolute Auto 0 /uL (0-450); Eosinophils Percent Auto 0.2 % (2-4); Hematocrit 29.9 % (36-46); Hemoglobin 10.4 g/dL (12.0-16.0); Lymphocytes Absolute Auto 300 /uL (1100-4500); Lymphocytes Percent Auto 1.7 % (25-40); Mean Corpuscular HGB Conc 34.7 % (30-36); Mean Corpuscular Hemoglobin 33.1 PG (26-34); Mean Corpuscular Volume 95.3 fL (80-100); Monocytes Absolute Auto 1600 /uL (0-900); Monocytes Percent Auto 10.9 % (3-14); Neutrophils Absolute Auto 13000 /uL (1500-7000); Platelet Count 123 X10^3/uL (150-400); Red Blood Cell Count 3.13 X10^6/uL (4.0-5.2)
[2024-06-08] MEDS: cefTRIAXone 1,000 MG in SODIUM CHLORIDE 0.9% 100 ML 200 MG IV (08:45)
[2024-06-08] MEDS: dilTIAZem CD 120 MG CAP 240 MG PO (08:45)
[2024-06-08 09:02] LABS: Alanine Aminotransferase 23 IU/L (<35); Albumin 2.2 g/dL (3.5-5.0); Albumin Globulin Ratio 0.9 (1.0-2.8); Alkaline Phosphatase 159 U/L (38-126); Aspartate Aminotransferase 29 IU/L (14-36); BUN Creatinine Ratio 30.8 (6-22); Bilirubin Total 0.8 mg/dL (0.2-1.3); Blood Urea Nitrogen 20 mg/dL (7-17); Calcium 8.3 mg/dL (8.4-10.2); Carbon Dioxide 22 mmol/L (22-32); Chloride 101 mmol/L (98-107); Estimated Glomerular Filt Rate > 60 mL/min (>60); Globulin 2.5 g/dL (1.7-4.1); Glucose 104 mg/dL (80-110); HEMOLYSIS < 15 (0-50); Potassium 3.8 mmol/L (3.4-5.1); Sodium 130 mmol/L (137-145); Total Protein 4.7 g/dL (6.3-8.2)
[2024-06-08 09:04] VITALS: O2SAT 90
[2024-06-08] MEDS: SODIUM CHLORIDE 0.9% FLUSH 10 ML IV (09:04)
--- NOTE | 2024-06-08 11:06 | DI.CT.S_ITS ---
PROCEDURE: CT ANGIO CHEST PE PROTOCOL INDICATIONS: increasing hypoxia, fracture, off anticoagulation TECHNIQUE: After the administration of intravenous contrast, 2 mm thick sections acquired from the pulmonary apices to the posterior costophrenic angles. 3-dimensional maximum intensity projection (MIP) coronal and sagittal reformats were then acquired through the thorax. For radiation dose reduction, the following was used: automated exposure control, adjustment of mA and/or kV according to patient size. COMPARISON: Outside Film, CT, CT ABDOMEN PELVIS WITH CONTRAST, 12/22/2023, 15:56. Outside Film, CT, CT CHEST ABDOMEN PELVIS WITH CONTRAST, 08/18/2023, 13:15. FINDINGS: Image quality: Suboptimal for evaluation of emboli distal to the main pulmonary arteries. Pulmonary arteries: Pulmonary arteries are normal in size, and demonstrate no intraluminal filling defects to suggest central pulmonary embolism. Lower Neck: No enlarged lymph nodes. Thyroid: No thyroid nodules which require sonographic follow up, per consensus guidelines. Axillae: No enlarged lymph nodes. 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 Bones: Unremarkable. Lungs and Pleura: Mild bilateral effusions. Increased pulmonary vascularity. Heart: Heart size is normal. No pericardial effusion. Thoracic Vessels: No aortic aneurysm. Mediastinum and Amina: No enlarged lymph nodes. Esophagus: No wall thickening. Moderate hiatal hernia. Upper Abdomen: Cirrhotic appearance liver with perihepatic perisplenic fluid. Partially visualized hepatic lesions previously present. IMPRESSION: No central pulmonary embolism. Distal branches are not well opacified for evaluation. Mild increased vascularity with effusions suggestive of edema. Superimposed consolidations may represent atelectasis versus pneumonia. Partially visualized hepatic lesions previously present in 2023. Mild perihepatic and perisplenic fluid with appearance of cirrhosis. Dictated by: Elana Markham M.D. on 06/08/2024 at 12:03 Approved by: Elana Markham M.D. on 06/08/2024 at 12:45
--- NOTE | 2024-06-08 12:02 | CM.DPNOTE ---
Addendum entered by MARICEL Araya 06/08/24 14:58: LATEX RIBBON MACHINE OPERATOR met with son Andrew in waiting room. Per Andrew, spoke with pt's [employer] MCR earlier in day, confirmed pt had out of network SNF coverage. Andrew said she gets 20 days of 100% SNF coverage and 80 days of 95% covered. confirm [facility] was on their list. Andrew emailed this LATEX RIBBON MACHINE OPERATOR the list of approved facilities, printed and behind FS. Per Andrew, was just told they were unable to do surgery today due to some medical reason, he was not quite sure why. Per Andrew, open to either wc van transport or BLS pending on medical recommendation post op. reports his mom has plenty financial resources and money is not a concern. Andrew reports pt's spouse Tejas is starting to cognitively decline as well, and would greatly appreciate/kindly asked for DCP updates from this team if possible (p [phone]). email [email or web address] LATEX RIBBON MACHINE OPERATOR emailed Felecia at [facility] with updates on surgery delay/what son said about pt's [employer] Coverage. Will continue to follow closely SL Original Note: DCP note LATEX RIBBON MACHINE OPERATOR reviewed EMR per cupola charger in morning rounds, scheduled surgical time is for 1615 today. LATEX RIBBON MACHINE OPERATOR met with pt and spouse in room. confirm able to meet with michael yesterday. will follow up with DCP team for post op preferences/recs. DIVINA Gwendolyn kindly agreed to send initial clinical information to Felecia at [facility] for their initial review. NEED to review out of pocket [employer] cost with family if [facility] (see previous CM note for more). P: pending post surgical recs/patient preference. either 1) home with [facility] or 2) SNF placement, preferences [facility]/SNF in [facility]/. CM team will continue to follow closely for DCP Coordination MARICEL Araya
[2024-06-08 14:04] VITALS: PULSE 97; RESP 22; O2SAT 92
[2024-06-08] MEDS: HYDROMORPHONE 0.5 MG INJ IV (14:19)
[2024-06-08] MEDS: FUROSEMIDE 40 MG/4 ML VIAL IV ×2 (14:19→17:44)
--- NOTE | 2024-06-08 14:51 | P.PN_ITS ---
Subjective Subjective Interval history: Chief complaint: Left hip pain after ground level fall due to impacted femoral neck fracture in a patient with neutropenia following chemotherapy for pancreatic carcinoma and anticoagulated History of present illness: A 62-year-old female with history of pancreatic cancer followed by Dr. Kris rucker at [facility] (telephone [phone]) slipped and fell this morning on her left side with severe hip pain. She was brought to the emergency department were hip film demonstrated impacted femoral neck fracture of the left hip. She is on palliative therapy her PCP has retired and is being followed by palliative care doctor. Patient has been functional however manages her activities of daily living independently including cooking for herself in maintaining her house. In addition to the hip fracture significant findings on evaluation in the ED notable for a white count of 0.4 with 46% neutrophils platelet count of 62 PT INR 2.5 and albumin of 2.5 X-ray was viewed by Orthopedic surgery on-call and if this were to go to surgery it would require bipolar hip replacement Past medical history: History obtained from son regarding pancreatic cancer: Small pancreatic cyst by his report was detected 2 years ago early 2022 pancreatic cyst that was referred to [facility] that performed an endoscopic ultrasound with biopsy. Patient underwent 3 rounds of chemotherapy but tolerated this poorly. Patient underwent CyberKnife of the pancreatic tumor. Hepatic metastases were detected in subsequent follow-up 2023. Patient underwent radioactive seed implantation per angiography of each of the hepatic metastases. At [facility] Recurrence in in winter was treated with chemotherapy by [facility] Dr. Lurdes Rucker for 3 rounds last of which was very poorly tolerated with diarrhea and syncope at the end of April 2024. At this point patient elected for no further treatment of pancreatic carcinoma. Hospital course: 06/04: Pain control is satisfactory white count still only 0.4 discussed with Orthopedic surgery and family and elected to delay until we can get satisfactory white blood cell count and reversal of the anticoagulation. Pharmacy consulted for dosing of Kcentra. Oral vitamin KA given for suspicion of vitamin K depletion after last chemotherapy as the cause of the elevated PT INR 06/05: No acute distress today pain control the satisfactory white blood cell count 4.6 PT INR de-escalated from 2.5-1.9 after 5 mg of p.o. vitamin K. we will check another CBC expect to see continued escalation of white blood cell count after the previous 3 doses of granulocyte colony-stimulating factor and another dose of oral vitamin K 10 mg to correct the coagulopathy for a suspected vitamin K deficiency following chemotherapy. Per discussion with Orthopedic surgery patient maybe optimized for surgery by Friday the goal white blood cell count of 7 at goal PT INR of 1.4 or less 06/07: no complaints from patient, INR is much improved and WBC cound improved. However in the afternoon developing new hypoxia, on 2L, no symptoms. CXR was read as possible drug reaction, my interpretation was bibasilar atelectasis. 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 Increased O2 requirements throughout the day. Ordered CTA which showed no large central occlusion but poor distal artery filling. Discussed with pulmonology, for now recommended change to cefepime, diuresis. If no improvement consider bronchoscopy. Surgery cancelled given new hypoxia. Exam Vital Signs (past 8 hours): - 06/08/24 07:25 06/08/24 08:00 06/08/24 09:04 Temperature 97.4 F L Pulse Rate 98 H Respiratory Rate 16 Blood Pressure 133/70 Pulse Oximetry 99 90 L Oxygen Delivery Method Nasal Cannula Nasal Cannula Oxygen Flow Rate 0 5 06/08/24 14:04 Temperature Pulse Rate 97 H Respiratory Rate 22 Blood Pressure Pulse Oximetry 92 Oxygen Delivery Method High Flow Nasal Cannula Oxygen Flow Rate 11 Fraction of Inspired Oxygen 28 SaO2/FiO2 Ratio 328 Oxygen Delivery Method High Flow Nasal Cannula Oxygen Flow Rate 11 Narrative Exam Narrative: Elderly female no acute distress, chronically ill appearing Alopecia from chemotherapy otherwise HEENT unremarkable new line Heart rate and rhythm regular no murmurs Lungs clear from apices to bases new line Abdomen nontender nondistended Ext: chronic non-pitting edema. Objective Labs 06/08/24 08:35 06/08/24 08:35 Labs: Laboratory Results - last 24 hr 06/08/24 06/08/24 08:35 13:10 WBC 15.0 H D RBC 3.13 L Hgb 10.4 L Hct 29.9 L MCV 95.3 MCH 33.1 MCHC 34.7 RDW 16.0 H Plt Count 123 L Neut % (Auto) 87.0 H Lymph % (Auto) 1.7 L [place] % (Auto) 10.9 Eos % (Auto) 0.2 L Baso % (Auto) 0.2 Neut # (Auto) 18634 H Lymph # (Auto) 300 L [place] # (Auto) 1600 H Eos # (Auto) 0 Baso # (Auto) 0 Sodium 130 L Potassium 3.8 Chloride 101 Carbon Dioxide 22 BUN 20 H Creatinine 0.65 Estimated GFR > 60 BUN/Creatinine Ratio 30.8 H Glucose 104 Calcium 8.3 L Total Bilirubin 0.8 AST 29 ALT 23 Alkaline Phosphatase 159 H Total Protein 4.7 L Albumin 2.2 L Globulin 2.5 Albumin/Globulin Ratio 0.9 L Blood Type O Positive Antibody Screen Negative [facility] Surgical History Hx of bilateral cataract extraction (~2011) Social History household members: spouse Smoking Status: Former smoker alcohol intake: current Assessment & Plan Assessment & Plan narrative: Assessment and plan: 88-year-old female [facility] pancreatic cancer , admitted with L femoral neck fracture. who just had chemotherapy 05/25/2024 and has elected no more further chemotherapy as it is not tolerable to her. # Acute respiratory failure with hypoxia, not present on admission - not normally on O2 - patient on exam today requiring now 11L with rapid escalation in need for oxygen over the past 24 hours - CXR was fairly unremarkable initially on my interpretation possible small consolidation vs atelectasis at the bases. CTA performed today with no large central PE, some ground glass opacities b/l lower lobes and small pleural effusions bilaterally. - trial diuresis with furosemide 40 mg IV BID - changed ceftriaxone (given for UTI) to cefepime today per pulmonary recommendations. Discussed with administrative support technician over the phone who recommended antibiotic change and diuresis, possible bronchoscopy depending on response. Given her hypoxia at this time would not recommend bronch. - differentials include filgrastim reaction (rare and unlikely per pulmonology), pulmonary edema, CHFpEF, and / or PNA. Changed antibiotics as noted above. Sputum cultures ordered. - consider TTE depending on response to diuresis. # left femoral neck fracture, pathologic due to a ground level fall, acute, POA - pending medical stability prior to surgery. Initially on hold for neutropenia s/p filgrastim. Delayed further 06/08 due to above hypoxia after discussion with orthopedics and anesthesiologist today. #Neutropenia secondary to chemotherapy: Good response to 3 doses of granulocyte colony stimulation factor white blood cell count is now 15. #Coagulopathy with elevated INR, improved Possibly effect of apixaban but favor vitamin K depletion following 3 rounds of chemotherapy (PT INR did not correct significantly after Kcentra dosed pharmacy) PT INR improved to 1.9 with 1st dose of vitamin K 5 mg p.o. and gave 4/13 10 mg dose as well. INR is 1.6 most recently. #Paroxysmal atrial fibrillation: was on apixaban which has been held. Was given Kcentra initially on admission. Currently in sinus rhythm #Chronic hyponatremia, stable #Metastatic pancreatic cancer to the liver - follows with oncology at multiple locations per chart review. #Acute cystitis secondary to E. coli - ceftriaxone initially will change to cefepime today. Code: DNR, surrogate is patient's spouse DVT: SCDs. Resume home apixaban after OR. I have utilized all available immediate resources to obtain, update, or review the patient's current medications. Dispo: patient admitted under inpatient status. Likely SNF, but PT/OT evaluations not until after surgery. Additional history obtained via discussions with the orthopedics provider, administrative support technician, and anesthesiologist today. These discussions contributed to the creation of the above assessment and plan. I have reviewed patient's presenting documentation, labs, and imaging personally. Time-Based Coding :: [TOTAL MINUTES] spent with patient and on the chart (including review of chart, obtaining history, exam, reviewing outside data, placing orders, documenting exam and treatment plan, and counseling patient) on [DATE].
[2024-06-08] MEDS: CEFEPIME 2 GM in SODIUM CHLORIDE 0.9% 100 ML IV (15:19)
--- NOTE | 2024-06-08 18:52 | PC.NURSE ---
IV placement This RN asked to place an U/S guided IV in this patient. This was done, 20g IV placed to right AC, pt tolerated well. This was charted under the IV assess intervention in the worklist, of note, this RN did not assess IV in left wrist.
[2024-06-08 20:00] VITALS: BP 138/72; PULSE 109; RESP 24; TEMP 37.1; O2SAT 92
--- NOTE | 2024-06-08 20:41 | PC.NURSE ---
Addendum entered by Joey Begum R.N. 06/09/24 07:45: Pt did not receive her morning ABX, Piggy back medication was not administered but still left on the IV Poll and pump. Day shift RN informed in hand off. Addendum entered by Joey Begum R.N. 06/09/24 06:36: Pt had a large BM, DEATH CLEARANCE COORDINATOR was able to do brief change, DEATH CLEARANCE COORDINATOR notified RN that wound on buttocks needed a new dressing, RN was able to change dressing on the buttocks of the left cheek. covered with a 2x2 Al[place]van Addendum entered by Joey Begum R.N. 06/09/24 02:15: Update; RN woke Pt up for 0230 medication IV ABX, Pt said yes she would take it, once RN scanned wrist badge and prepared IV pump and primed everything for administration. Pt refused. Pt was educated on importance to flush line but also to receive IV ABX to assist in improving her recovery, Pt verbalized understanding and said, no i told you i don't want to flush and i dont want IV meds, i just want to sleep, RN attempted to reorient patient to person place and situation along with importance of ABX, but Pt still refused. carbonating stone cleaner notified. Original Note: date night sitter patient is very pleasant, refuses night time meds, stating she is very tired and had a large BM today, she feels cold and doesn't want to have her IV flushed at this time. RN informed it is to check patency. Pt said later tonight you will give me IV so we can do it then.
[2024-06-09 02:00] VITALS: O2SAT 95
--- NOTE | 2024-06-09 07:49 | P.PN_ITS ---
Subjective Subjective Interval history: Hospital course: 06/04: Pain control is satisfactory white count still only 0.4 discussed with Orthopedic surgery and family and elected to delay until we can get satisfactory white blood cell count and reversal of the anticoagulation. Pharmacy consulted for dosing of Kcentra. Oral vitamin KA given for suspicion of vitamin K depletion after last chemotherapy as the cause of the elevated PT INR 06/05: No acute distress today pain control the satisfactory white blood cell count 4.6 PT INR de-escalated from 2.5-1.9 after 5 mg of p.o. vitamin K. we will check another CBC expect to see continued escalation of white blood cell count after the previous 3 doses of granulocyte colony-stimulating factor and another dose of oral vitamin K 10 mg to correct the coagulopathy for a suspected vitamin K deficiency following chemotherapy. Per discussion with Orthopedic surgery patient maybe optimized for surgery by Friday the goal white blood cell count of 7 at goal PT INR of 1.4 or less 06/07: no complaints from patient, INR is much improved and WBC cound improved. However in the afternoon developing new hypoxia, on 2L, no symptoms. CXR was read as possible drug reaction, my interpretation was bibasilar atelectasis. 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 Increased O2 requirements throughout the day. Ordered CTA which showed no large central occlusion but poor distal artery filling. Discussed with pulmonology, for now recommended change to cefepime, diuresis. If no improvement consider bronchoscopy. Surgery cancelled given new hypoxia. S: She was comfortable on oxygen, denies any coughing. She does have leg edema. CT was reviewed and looks like there maybe a degree of pulmonary edema. Exam Vital Signs (past 8 hours): - 06/09/24 02:00 Pulse Oximetry 95 Oxygen Flow Rate 4 Fraction of Inspired Oxygen 28 SaO2/FiO2 Ratio 328 Oxygen Delivery Method Nasal Cannula Oxygen Flow Rate 4 Narrative Exam Narrative: NAD, alert and oriented. Fluent speech. Chronically ill and frail, but in no distress on oxygen. Lungs are clear, normal rate and effort. Heart is regular, no murmur gallop or rub. Abdomen is soft, non distended. Extremities are free of edema. Objective Imaging Multiple studies:: Radiologist's impression: Chest CTA: No central pulmonary embolism. Distal branches are not well opacified for evaluation. Mild increased vascularity with effusions suggestive of edema. Superimposed consolidations may represent atelectasis versus pneumonia. Partially visualized hepatic lesions previously present in 2023. Mild perihepatic and perisplenic fluid with appearance of cirrhosis. CXR: Ill-defined ground-glass throughout the lungs, concerning for drug reaction or atypical infection /viral pneumonia. Femur X-ray: Stable transcervical left femoral neck fracture. No more distal femur fracture is seen. Labs 06/08/24 08:35 06/08/24 08:35 Labs: Laboratory Results - last 24 hr 06/08/24 06/08/24 08:35 13:10 WBC 15.0 H D RBC 3.13 L Hgb 10.4 L Hct 29.9 L MCV 95.3 MCH 33.1 MCHC 34.7 RDW 16.0 H Plt Count 123 L Neut % (Auto) 87.0 H Lymph % (Auto) 1.[address] [place] % (Auto) 10.9 Eos % (Auto) 0.2 L Baso % (Auto) 0.2 Neut # (Auto) 05315 H Lymph # (Auto) [address] [place] [place] # (Auto) 1600 H Eos # (Auto) 0 Baso # (Auto) 0 Sodium 130 L Potassium 3.8 Chloride 101 Carbon Dioxide 22 BUN 20 H Creatinine 0.65 Estimated GFR > 60 BUN/Creatinine Ratio 30.8 H Glucose 104 Calcium 8.3 L Total Bilirubin 0.8 AST 29 ALT 23 Alkaline Phosphatase 159 H Total Protein 4.7 L Albumin 2.2 L Globulin 2.5 Albumin/Globulin Ratio 0.9 L Blood Type O Positive Antibody Screen Negative [facility] Surgical History Hx of bilateral cataract extraction (~2011) Social History household members: spouse Smoking Status: Former smoker alcohol intake: current Assessment & Plan Assessment & Plan narrative: 88-year-old female H pancreatic cancer , admitted with L femoral neck fracture. who just had chemotherapy 05/25/2024 and has elected no more further chemotherapy as it is not tolerable to her. # Acute respiratory failure with hypoxia, not present on admission - not normally on O2 - patient on exam today requiring now 11L with rapid escalation in need for oxygen over the past 24 hours - CXR was fairly unremarkable initially on my interpretation possible small consolidation vs atelectasis at the bases. CTA performed today with no large central PE, some ground glass opacities b/l lower lobes and small pleural effusions bilaterally. - trial diuresis with furosemide 40 mg IV BID - changed ceftriaxone (given for UTI) to cefepime today per pulmonary recommendations. Discussed with substitute bus driver over the phone who recommended antibiotic change and diuresis, possible bronchoscopy depending on response. Given her hypoxia at this time would not recommend bronch. - differentials include filgrastim reaction (rare and unlikely per pulmonology), pulmonary edema, CHFpEF, and / or PNA. Changed antibiotics as noted above. Sputum cultures ordered. - consider TTE depending on response to diuresis. # left femoral neck fracture, pathologic due to a ground level fall, acute, POA - pending medical stability prior to surgery. Initially on hold for neutropenia s/p filgrastim. Delayed further 06/08 due to above hypoxia after discussion with orthopedics and anesthesiologist today. #Neutropenia secondary to chemotherapy: Good response to 3 doses of granulocyte colony stimulation factor white blood cell count is now 15. #Coagulopathy with elevated INR, improved Possibly effect of apixaban but favor vitamin K depletion following 3 rounds of chemotherapy (PT INR did not correct significantly after Kcentra dosed pharmacy) PT INR improved to 1.9 with 1st dose of vitamin K 5 mg p.o. and gave 06/06 10 mg dose as well. INR is 1.6 most recently. #Paroxysmal atrial fibrillation: was on apixaban which has been held. Was given Kcentra initially on admission. Currently in sinus rhythm #Chronic hyponatremia, stable #Metastatic pancreatic cancer to the liver - follows with oncology at multiple locations per chart review. #Acute cystitis secondary to E. coli - ceftriaxone initially will change to cefepime today. Plan: -increase Lasix to 60 q.12 hours for improved diuresis and wean oxygen. -echo to assess LV EF. -discuss level care with the patient and her , they do conveyed that she really wants to avoid any further active treatment for cancer and pursue treatments that will keep her comfortable which includes a palliative pending ever hip. Code: DNR, surrogate is patient's spouse DVT: SCDs. Resume home apixaban after OR. Time-Based Coding :: [TOTAL MINUTES] spent with patient and on the chart (including review of chart, obtaining history, exam, reviewing outside data, placing orders, documenting exam and treatment plan, and counseling patient) on [DATE].
[2024-06-09 08:00] VITALS: BP 126/66; PULSE 91; RESP 18; TEMP 36.5; O2SAT 86
[2024-06-09] MEDS: VIT C/E/ZN/COPPR/LUTEIN/ZEAXAN CAPSULE 1 CAP PO (08:27)
[2024-06-09] MEDS: dilTIAZem CD 120 MG CAP 240 MG PO (08:27)
[2024-06-09] MEDS: HYDROMORPHONE 0.5 MG INJ IV (08:27)
[2024-06-09] MEDS: FUROSEMIDE 40 MG/4 ML VIAL IV (08:29)
[2024-06-09] MEDS: CEFEPIME 2 GM in SODIUM CHLORIDE 0.9% 100 ML IV ×2 (09:00→20:53)
[2024-06-09] MEDS: SODIUM CHLORIDE 0.9% FLUSH 10 ML IV (09:00)
[2024-06-09 09:02] VITALS: O2SAT 90
--- NOTE | 2024-06-09 11:14 | DI.ECHO.S_ITS ---
[facility]+ [facility] : : [address] : : [place] : : [id number] : : Phone: [phone] Echocardiogram Report + + :Name: JERE BORRERO Study Date: 06/09/2024 Height: 67 in : :Hospital ReadingLocation: Weight: 158 lb : : Gender: Female BSA: 1.8 m2 : :: 1935 Age: 88 yrs BP: 126/66 mmHg: :Reason For Study: CONGESTIVE HEART FAILURE : :Ordering Physician: MIKEY, : :DIPKA Cuevas Performed By: Ofelia Lam : :Referring: DIPAK JENSEN : + + Interpretation Summary The ejection fraction is estimated to be 70-75%. Diastolic parameters suggest probable normal left ventricular diastolic function and normal filling pressures. The right ventricle is normal in size and function. No significant valvular abnormalities. Pulmonary artery pressures cannot be estimated because of the lack of a measurable TR jet velocity but the IVC suggests a CVP of around 3 mmHg. Procedure: A two-dimensional transthoracic echocardiogram with color flow and Doppler was performed. The study quality was technically difficult. There is no prior echocardiogram noted for this patient. Patient scanned in a supine postion due to left hip fracture. The patient was in sinus rhythm with heart rates between 85-91 bpm during the exam. Left Ventricle: The left ventricular cavity is small. The ejection fraction is estimated to be 70-75%. The left ventricle is hyperdynamic. Diastolic parameters suggest probable normal left ventricular diastolic function and normal filling pressures. Right Ventricle: The right ventricle is normal in size and function. Atria: The left atrial size is normal. Right atrial size is normal. There is no Doppler evidence for an interatrial shunt. Mitral Valve: The mitral valve leaflets are slightly calcified. There is mild mitral annular calcification. The mitral valve chordae are thickened and/or calcified. There is no mitral regurgitation noted. Aortic Valve: The aortic valve opens well. The aortic valve is mildly calcified. There is no aortic valve stenosis. No aortic regurgitation is present. Tricuspid Valve: The tricuspid valve leaflets are thin and pliable. There is trace tricuspid regurgitation. Pulmonary artery pressures cannot be estimated because of the lack of a measurable TR jet velocity but the IVC suggests a CVP of around 3 mmHg. Pulmonic Valve: The pulmonic valve is not well visualized. There is no pulmonic valvular regurgitation. Great Vessels: The aortic root is normal size. The ascending aorta could not be visualized. The inferior vena cava was not well visualized. Pericardium/ Pleura There is no pericardial effusion. There is no pleural effusion. MMode/2D Measurements & Calculations LVIDd: 2.9 cm LVOT diam: 1.7 cm LVIDs: 1.7 cm Ao root diam: 2.5 cm FS: 41.7 % Ao Arch Diam (Prox Trans): 2.4 cm IVSd: 1.2 cm LVPWd: 0.98 cm LV tinoco. diameter/BSA (cm/m^2): 1.6 LV sys. diameter/BSA (cm/m^2): 0.91 LA A2 area: 10.2 cm2 RA long axis: 3.6 cm LA A4 area: 10.7 cm2 RA area: 8.1 cm2 LA length (vol): 4.4 cm RA vol: 15.6 ml LA vol: 21.2 ml RA : 8.5 ml/m2 LA vol index: 11.6 ml/m2 RVD1 (basal): 3.0 cm RVD2 (mid): 2.1 cm TAPSE: 1.6 cm Doppler Measurements & Calculations Ao V2 max: 170.7 cm/sec LVOT Max Patrick: 144.8 cm/sec Ao V2 mean: 119.2 cm/sec LV V1 max P.4 mmHg Ao max P.7 mmHg LV V1 VTI: 23.3 cm Ao mean P.3 mmHg CLIVE(I,D): 1.9 cm2 Ao V2 VTI: 28.7 cm CLIVE(V,D): 2.0 cm2 sev ratio: 0.81 CLIVE indexed to BSA (cm^2/m^2): 1.0 MV E max patrick: 84.0 cm/sec TR max patrick: 228.0 cm/sec MV A max patrick: 119.1 cm/sec TR max P.8 mmHg MV E/A: 0.71 PA V2 max: 87.2 cm/sec Med Peak E' Patrick: 5.9 cm/sec PA V2 mean: 58.3 cm/sec E/E' med: 14.3 PA mean P.5 mmHg Lat Peak E' Patrick: 8.1 cm/sec PA pr(Accel): 41.7 mmHg E/E' lat: 10.3 E/e' average: 12.3 MV dec time: 0.27 sec MVA(VTI): 2.1 cm2 MV V2 mean: 75.4 cm/sec SV(LVOT): 54.0 ml MV mean P.5 mmHg MV V2 VTI: 26.0 cm Reading Physician:04:39 PM
--- NOTE | 2024-06-09 12:53 | CM.DPNOTE ---
DCP Cont Reviewed chart. Patient discussed in multidisciplinary rounds. Hip repair surgery is held due to patient's continued dependence on oxygen. In addition, cares have been refused by patient recently indicating patient may be more appropriate for a comfort focused pathway. Dr Read hopes to address goals of care with patient and family over the next 24-48 hrs. Discharge plan is dependent on how inpatient medical plan of care unfolds. See prior CM notes for detail. CM team following clinical course closely . KATE
[2024-06-09 13:00] VITALS: O2SAT 90
--- NOTE | 2024-06-09 14:11 | DIET.CONS ---
Dietary Consultation Note Admission Date: 06/03/2024 09:10 Assessment: 88 y F admitted for hip fracture after GLF. Dietitian screened for LOS. PMH of metastatic pancreatic cancer on palliative care. Plan was initially for surgery for comfort. Pt discussed in rounds this morning. Pt was initially going to go on hospice before hip fracture, now may d/c on hospice or d/c to SNF. Goals of care to be discussed further. Pt currently with <25% recorded PO intakes for last 3 days. ONS with meals as desired. Following for GOC. Ht: 170.18 cm Wt: 71.668 kg BMI: 24.7 UBW: 65.3 kg on 04/09/19 Last BM: 06/08/24 (06/08/24 16:00) MNA: 14 Bob Score: 17 Diet: 06/08/24 Lunch Heart Healthy Diet Diet Modifications: Sodium Level: 2 gm Sodium Food Texture: Level 7 - Regular Liquid Consistency: Level 0 - Thin Nutrition Percent Meal Consumed 25% 06/09/24 11:36 Percent Meal Consumed pt ref all meals today 06/08/24 18:00 Percent Meal Consumed 25% 06/08/24 16:00 Percent Meal Consumed 0% 06/07/24 18:00 Labs: RBC 3.13 X10^6/uL (4.0-5.2) L 06/08/24 08:35 Hgb 10.4 g/dL (12.0-16.0) L 06/08/24 08:35 Hct 29.9 % (36-46) L 06/08/24 08:35 Creatinine 0.65 mg/dL (0.52-1.04) 06/08/24 08:35 Electronically Signed by: Sepideh Escamilla 06/09/24 14:11 Clinical Dietitian [address] [address]
[2024-06-09] MEDS: FUROSEMIDE 60 MG in SODIUM CHLORIDE 0.9% 50 ML 112 MG IV (18:12)
[2024-06-09 20:00] VITALS: BP 133/65; PULSE 93; RESP 24; TEMP 36.6; O2SAT 92
[2024-06-10 07:52] VITALS: O2SAT 90
[2024-06-10] MEDS: CEFEPIME 2 GM in SODIUM CHLORIDE 0.9% 100 ML IV ×2 (08:33→20:56)
[2024-06-10] MEDS: VIT C/E/ZN/COPPR/LUTEIN/ZEAXAN CAPSULE 1 CAP PO (08:33)
[2024-06-10] MEDS: FUROSEMIDE 60 MG in SODIUM CHLORIDE 0.9% 50 ML 112 MG IV ×2 (08:33→18:38)
[2024-06-10] MEDS: dilTIAZem CD 120 MG CAP 240 MG PO (08:33)
[2024-06-10] MEDS: SODIUM CHLORIDE 0.9% FLUSH 10 ML IV ×2 (08:34→20:56)
[2024-06-10 08:47] VITALS: BP 123/55; PULSE 81; RESP 16; TEMP 36.1; O2SAT 93
--- NOTE | 2024-06-10 10:33 | CM.DPNOTE ---
Addendum entered by MARICEL Verdugo 06/10/24 10:54: ADD: Dr Read's updated prog note from 06/09 emailed to Felecia at [facility]. According to Felecia, she has started the auth request through patient's [employer] MCR. Original Note: DCP Cont Reviewed chart. Patient discussed in multidisciplinary rounds. Patient remains hypoxic with dependence on 11L. According to Dr Read, patient and family have decided on surgery pinning for comfort and SNF afterwards. Patient is not pursuing cancer treatment. Sent email to Felecia at [facility], patient's SNF preference, updating on medical plan of care. Felecia will need updated clinical if patient proceeds with surgery, therapy and RN notes etc. Plan for discharge at this time is SNF after surgery, patient remains on 11L high flow. CM team following clinical course closely for coordination of discharge plan. Need PASRR if SNF. KATE
[2024-06-10 11:31] LABS: Hematocrit 30.8 % (36-46); Hemoglobin 10.6 g/dL (12.0-16.0); Mean Corpuscular HGB Conc 34.4 % (30-36); Mean Corpuscular Hemoglobin 33.2 PG (26-34); Mean Corpuscular Volume 96.3 fL (80-100); Platelet Count 118 X10^3/uL (150-400); Red Blood Cell Count 3.19 X10^6/uL (4.0-5.2); Red Cell Distribution Width 16.1 % (11.6-14.8); White Blood Cell Count 15.3 X10^3/uL (4.5-11.0)
[2024-06-10 11:48] LABS: Alanine Aminotransferase 29 IU/L (<35); Albumin 2.3 g/dL (3.5-5.0); Albumin Globulin Ratio 0.9 (1.0-2.8); Alkaline Phosphatase 171 U/L (38-126); Aspartate Aminotransferase 40 IU/L (14-36); BUN Creatinine Ratio 26.7 (6-22); Bilirubin Total 0.7 mg/dL (0.2-1.3); Blood Urea Nitrogen 24 mg/dL (7-17); Calcium 7.9 mg/dL (8.4-10.2); Carbon Dioxide 30 mmol/L (22-32); Chloride 92 mmol/L (98-107); Estimated Glomerular Filt Rate > 60 mL/min (>60); Globulin 2.5 g/dL (1.7-4.1); Glucose 138 mg/dL (80-110); HEMOLYSIS < 15 (0-50); Sodium 129 mmol/L (137-145); Total Protein 4.8 g/dL (6.3-8.2)
[2024-06-10 11:49] LABS: Potassium 2.6 mmol/L (3.4-5.1)
[2024-06-10] MEDS: POTASSIUM CHLORIDE IN WATER 10 MEQ/100 ML PIGGYBACK 100 MEQ IV ×6 (11:58→17:24)
[2024-06-10 12:12] LABS: Magnesium 1.7 mg/dL (1.6-2.3)
--- NOTE | 2024-06-10 12:18 | DI.RAD.S_ITS ---
PROCEDURE: XR CHEST 1V INDICATIONS: dyspnea TECHNIQUE: One view of the chest was acquired. COMPARISON: [facility], CR, XR CHEST 1V, 06/07/2024, 14:48. FINDINGS AND IMPRESSION: Left lung base consolidation and small effusion. Mildly diffuse interstitium. Findings likely represent infection, differential includes edema. Consider future imaging surveillance to assess for resolution. Normal heart size. Aortic calcifications. Degenerative osseous changes. Left port catheter is seen with tip projecting over the lower SVC. Dictated by: Ever Graham M.D. on 06/10/2024 at 13:12 Approved by: Ever Graham M.D. on 06/10/2024 at 13:13
--- NOTE | 2024-06-10 12:20 | PM.PN.1 ---
Subjective Subjective Interval history: Hospital course: 06/04: Pain control is satisfactory white count still only 0.4 discussed with Orthopedic surgery and family and elected to delay until we can get satisfactory white blood cell count and reversal of the anticoagulation. Pharmacy consulted for dosing of Kcentra. Oral vitamin KA given for suspicion of vitamin K depletion after last chemotherapy as the cause of the elevated PT INR 06/05: No acute distress today pain control the satisfactory white blood cell count 4.6 PT INR de-escalated from 2.5-1.9 after 5 mg of p.o. vitamin K. we will check another CBC expect to see continued escalation of white blood cell count after the previous 3 doses of granulocyte colony-stimulating factor and another dose of oral vitamin K 10 mg to correct the coagulopathy for a suspected vitamin K deficiency following chemotherapy. Per discussion with Orthopedic surgery patient maybe optimized for surgery by Friday the goal white blood cell count of 7 at goal PT INR of 1.4 or less 06/07: no complaints from patient, INR is much improved and WBC cound improved. However in the afternoon developing new hypoxia, on 2L, no symptoms. CXR was read as possible drug reaction, my interpretation was bibasilar atelectasis. 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 Increased O2 requirements throughout the day. Ordered CTA which showed no large central occlusion but poor distal artery filling. Discussed with pulmonology, for now recommended change to cefepime, diuresis. If no improvement consider bronchoscopy. Surgery cancelled given new hypoxia. 06/09 She was comfortable on oxygen (8-10 L), denies any coughing. She does have leg edema. CT was reviewed and looks like there maybe a degree of pulmonary edema. She was diuresed, and did note that she wants to have primarily palliative efforts moving forward including a palliative pinning of her hip if feasible. She does not plan to continue cancer treatment. Exam Vital Signs (past 8 hours): - 06/10/24 07:00 06/10/24 07:52 06/10/24 08:47 Temperature 97.0 F L Pulse Rate 81 Respiratory Rate 16 Blood Pressure 123/55 L Pulse Oximetry 90 L 93 Oxygen Delivery Method High Flow Nasal Cannula High Flow Nasal Cannula Oxygen Flow Rate 11 11 Fraction of Inspired Oxygen 28 SaO2/FiO2 Ratio 328 Oxygen Delivery Method High Flow Nasal Cannula Oxygen Flow Rate 11 Narrative Exam Narrative: NAD, alert and oriented. Fluent speech. Frail and underweight. Comfortable on 10 L of oxygen N/C. Lungs are clear, normal rate and effort. Heart is regular, no murmur gallop or rub. Abdomen is soft, non distended. Extremities with 1+ edema. Objective Imaging Multiple studies:: Radiologist's impression: Chest CTA: No central pulmonary embolism. Distal branches are not well opacified for evaluation. Mild increased vascularity with effusions suggestive of edema. Superimposed consolidations may represent atelectasis versus pneumonia. Partially visualized hepatic lesions previously present in 2023. Mild perihepatic and perisplenic fluid with appearance of cirrhosis. CXR: Ill-defined ground-glass throughout the lungs, concerning for drug reaction or atypical infection /viral pneumonia. Femur X-ray: Stable transcervical left femoral neck fracture. No more distal femur fracture is seen. ECHO: Interpretation Summary The ejection fraction is estimated to be 70-75%. Diastolic parameters suggest probable normal left ventricular diastolic function and normal filling pressures. The right ventricle is normal in size and function. No significant valvular abnormalities. Pulmonary artery pressures cannot be estimated because of the lack of a measurable TR jet velocity but the IVC suggests a CVP of around 3 mmHg. Labs 06/10/24 11:20 06/10/24 11:20 Labs: Laboratory Results - last 24 hr 06/10/24 11:20 WBC 15.3 H RBC 3.19 L Hgb 10.6 L Hct 30.8 L MCV 96.3 MCH 33.2 MCHC 34.4 RDW 16.1 H Plt Count 118 L Sodium 129 L Potassium 2.6 L* D Chloride 92 L Carbon Dioxide 30 BUN 24 H Creatinine 0.90 Estimated GFR > 60 BUN/Creatinine Ratio 26.7 H Glucose 138 H Calcium 7.9 L Magnesium 1.7 Total Bilirubin 0.7 AST 40 H ALT 29 Alkaline Phosphatase 171 H Total Protein 4.8 L Albumin 2.3 L Globulin 2.5 Albumin/Globulin Ratio 0.9 L PFSH Surgical History Hx of bilateral cataract extraction (~2011) Social History household members: spouse Smoking Status: Former smoker alcohol intake: current Assessment & Plan Assessment & Plan narrative: 06/08/24 06/08/24 Assessment & Plan Assessment & Plan narrative: 88-year-old female H pancreatic cancer , admitted with L femoral neck fracture. who just had chemotherapy 05/25/2024 and has elected no more further chemotherapy as it is not tolerable to her. 1. Acute respiratory failure with hypoxia, not present on admission and active, - not normally on O2 - patient on exam today requiring now 11L with rapid escalation in need for oxygen over the past 24 hours - CXR was fairly unremarkable initially on my interpretation possible small consolidation vs atelectasis at the bases. CTA performed today with no large central PE, some ground glass opacities b/l lower lobes and small pleural effusions bilaterally. - changed ceftriaxone (given for UTI) to cefepime today per pulmonary recommendations. Discussed with rn transitional care over the phone who recommended antibiotic change and diuresis, possible bronchoscopy depending on response. Given her hypoxia at this time would not recommend bronch. Not sure she would want a bronch or the associated risk. - differentials include filgrastim reaction (rare and unlikely per pulmonology), pulmonary edema, CHFpEF, and / or PNA. Changed antibiotics as noted above. Sputum cultures ordered. - consider TTE depending on response to diuresis. 2. left femoral neck fracture, pathologic due to a ground level fall. Present on admission and active. - pending medical stability prior to surgery. Initially on hold for neutropenia s/p filgrastim. Delayed further 06/08 due to above hypoxia after discussion with orthopedics and anesthesiologist today. 3. Neutropenia secondary to chemotherapy, present on admission and improved. Good response to 3 doses of granulocyte colony stimulation factor white blood cell count is now 15. 4. Coagulopathy with elevated INR, present on admission and improved Possibly effect of apixaban but favor vitamin K depletion following 3 rounds of chemotherapy (PT INR did not correct significantly after Kcentra dosed pharmacy) PT INR improved to 1.9 with 1st dose of vitamin K 5 mg p.o. and gave 06/06 10 mg dose as well. INR is 1.6 most recently. 5. Paroxysmal atrial fibrillation, chronic and stable. was on apixaban which has been held. Was given Kcentra initially on admission. Currently in sinus rhythm 6. Chronic hyponatremia, chronic and stable. 7. 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 - follows with oncology at multiple locations per chart review. 8. Acute cystitis secondary to E. coli, present on admission and improved. - ceftriaxone initially, then Cefepime. 9. Hypokalemia (from diuresis), new and active. Plan: -continue Lasix to 60 q.12 hours for improved diuresis and wean oxygen. -echo normal. -discussed level care with the patient and her , they do conveyed that she really wants to avoid any further active treatment for cancer and pursue treatments that will keep her comfortable which includes a palliative pending ever hip. -The current hope is still to be able to wean her oxygen to the point that she can have her palliative pinning of her hip. We will continue antibiotics. -We will continue diuresis and replace her potassium as as low today. We will also check magnesium. Code: DNR, surrogate is patient's spouse DVT: SCDs. Resume home apixaban after OR. Time-Based Coding :: [TOTAL MINUTES] spent with patient and on the chart (including review of chart, obtaining history, exam, reviewing outside data, placing orders, documenting exam and treatment plan, and counseling patient) on [DATE].
[2024-06-10] MEDS: MAGNESIUM CHLORIDE 64 MG TABLET 128 MG PO (13:25)
[2024-06-10 20:00] VITALS: BP 128/62; PULSE 94; RESP 24; TEMP 37.1; O2SAT 92
[2024-06-10 21:15] LABS: HEMOLYSIS < 15 (0-50); Potassium 3.2 mmol/L (3.4-5.1)
[2024-06-11] VITALS (15 sets, daily range): BP systolic 91–130; BP diastolic 43–67; PULSE 75–89; RESP 12–22; TEMP 35.9–37.2; O2SAT 92–99; BMI 24.7
[2024-06-11 05:11] LABS: BUN Creatinine Ratio 30.5 (6-22); Blood Urea Nitrogen 29 mg/dL (7-17); Calcium 7.8 mg/dL (8.4-10.2); Carbon Dioxide 31 mmol/L (22-32); Chloride 93 mmol/L (98-107); Estimated Glomerular Filt Rate 58 mL/min (>60); Glucose 105 mg/dL (80-110); HEMOLYSIS < 15 (0-50); Potassium 2.8 mmol/L (3.4-5.1); Sodium 128 mmol/L (137-145)
[2024-06-11 05:23] LABS: Magnesium 1.6 mg/dL (1.6-2.3)
[2024-06-11] MEDS: DOCUSATE 100 MG CAPSULE PO ×2 (08:25→20:21)
[2024-06-11] MEDS: FUROSEMIDE 60 MG in SODIUM CHLORIDE 0.9% 50 ML 112 MG IV (08:26)
[2024-06-11] MEDS: VIT C/E/ZN/COPPR/LUTEIN/ZEAXAN CAPSULE 1 CAP PO (08:26)
[2024-06-11] MEDS: dilTIAZem CD 120 MG CAP 240 MG PO (08:26)
[2024-06-11] MEDS: SODIUM CHLORIDE 0.9% FLUSH 10 ML IV (08:26)
--- NOTE | 2024-06-11 09:00 | PM.PN.IH.1 ---
Subjective Subjective Date Patient Seen: 06/11/24 Time Patient Seen: 08:25 Interval history: Hospital course: 06/04: Pain control is satisfactory white count still only 0.4 discussed with Orthopedic surgery and family and elected to delay until we can get satisfactory white blood cell count and reversal of the anticoagulation. Pharmacy consulted for dosing of Kcentra. Oral vitamin KA given for suspicion of vitamin K depletion after last chemotherapy as the cause of the elevated PT INR 06/05: No acute distress today pain control the satisfactory white blood cell count 4.6 PT INR de-escalated from 2.5-1.9 after 5 mg of p.o. vitamin K. we will check another CBC expect to see continued escalation of white blood cell count after the previous 3 doses of granulocyte colony-stimulating factor and another dose of oral vitamin K 10 mg to correct the coagulopathy for a suspected vitamin K deficiency following chemotherapy. Per discussion with Orthopedic surgery patient maybe optimized for surgery by Friday the goal white blood cell count of 7 at goal PT INR of 1.4 or less 06/07: no complaints from patient, INR is much improved and WBC cound improved. However in the afternoon developing new hypoxia, on 2L, no symptoms. CXR was read as possible drug reaction, my interpretation was bibasilar atelectasis. 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 Increased O2 requirements throughout the day. Ordered CTA which showed no large central occlusion but poor distal artery filling. Discussed with pulmonology, for now recommended change to cefepime, diuresis. If no improvement consider bronchoscopy. Surgery cancelled given new hypoxia. 06/09 She was comfortable on oxygen (8-10 L), denies any coughing. She does have leg edema. CT was reviewed and looks like there maybe a degree of pulmonary edema. She was diuresed, and did note that she wants to have primarily palliative efforts moving forward including a palliative pinning of her hip if feasible. She does not plan to continue cancer treatment. 06/10: No new events 06/11: Patient reports that she is feeling better, persistently weak with left hip pain. Oxygen is down to 3 L today. Exam Vital Signs (past 8 hours): - 06/11/24 02:00 06/11/24 08:18 06/11/24 08:28 Temperature 97.1 F L Pulse Rate 89 Respiratory Rate 16 Blood Pressure 117/62 Pulse Oximetry 97 96 96 Oxygen Delivery Method High Flow Nasal Cannula Oxygen Flow Rate 4 3 4 Fraction of Inspired Oxygen 28 SaO2/FiO2 Ratio 328 Oxygen Delivery Method High Flow Nasal Cannula Oxygen Flow Rate 4 Narrative Exam Narrative: NAD, alert and oriented. Fluent speech. Frail and underweight. Comfortable on 10 L of oxygen N/C. Lungs are clear, normal rate and effort. Heart is regular, no murmur gallop or rub. Abdomen is soft, non distended. Extremities with 1+ edema. Objective Imaging Multiple studies:: Radiologist's impression: Chest CTA: No central pulmonary embolism. Distal branches are not well opacified for evaluation. Mild increased vascularity with effusions suggestive of edema. Superimposed consolidations may represent atelectasis versus pneumonia. Partially visualized hepatic lesions previously present in 2023. Mild perihepatic and perisplenic fluid with appearance of cirrhosis. CXR: Ill-defined ground-glass throughout the lungs, concerning for drug reaction or atypical infection /viral pneumonia. Femur X-ray: Stable transcervical left femoral neck fracture. No more distal femur fracture is seen. ECHO: Interpretation Summary The ejection fraction is estimated to be 70-75%. Diastolic parameters suggest probable normal left ventricular diastolic function and normal filling pressures. The right ventricle is normal in size and function. No significant valvular abnormalities. Pulmonary artery pressures cannot be estimated because of the lack of a measurable TR jet velocity but the IVC suggests a CVP of around 3 mmHg. Labs 06/10/24 11:20 06/11/24 04:36 Labs: Laboratory Results - last 24 hr 06/10/24 06/10/24 06/11/24 11:20 20:56 04:36 WBC 15.3 H RBC 3.19 L Hgb 10.6 L Hct 30.8 L MCV 96.3 MCH 33.2 MCHC 34.4 RDW 16.1 H Plt Count 118 L Sodium 129 L 128 L Potassium 2.6 L* D 3.2 L 2.8 L Chloride 92 L 93 L Carbon Dioxide 30 31 BUN 24 H 29 H Creatinine 0.90 0.95 Estimated GFR > 60 58 L BUN/Creatinine Ratio 26.7 H 30.5 H Glucose 138 H 105 Calcium 7.9 L 7.8 L Magnesium 1.7 1.6 Total Bilirubin 0.7 AST 40 H ALT 29 Alkaline Phosphatase 171 H Total Protein 4.8 L Albumin 2.3 L Globulin 2.5 Albumin/Globulin Ratio 0.9 L [facility] Surgical History Hx of bilateral cataract extraction (~2011) Social History household members: spouse Smoking Status: Former smoker alcohol intake: current Assessment & Plan Assessment & Plan narrative: 88-year-old female PMH pancreatic cancer , admitted with L femoral neck fracture. who had chemotherapy 05/25/2024 and has elected no more further chemotherapy as it is not tolerable to her. 1. Acute respiratory failure with hypoxia, not present on admission and active, - improved today and cleared for surgery - not normally on O2 - patient required up to 11L with rapid escalation in need for oxygen, CTA negative for PE, some ground glass opacities b/l lower lobes and small pleural effusions bilaterally. - differentials include filgrastim reaction (rare and unlikely per pulmonology), pulmonary edema, CHFpEF, and / or PNA. -improved on cefepime and diuresis 2. left femoral neck fracture, pathologic due to a ground level fall. Present on admission and active. - cleared for surgery today, patient ready. She is made NPO this morning at 9am having had a few bites of breakfast. Initially on hold for neutropenia s/p filgrastim. Delayed further 06/08 due to above hypoxia after discussion with orthopedics and anesthesiologist today. 3. Neutropenia secondary to chemotherapy, present on admission and improved. - Good response to 3 doses of granulocyte colony stimulation factor white blood cell count was 15 on 06/10. 4. Coagulopathy with elevated INR, present on admission and improved - possibly effect of apixaban but favor vitamin K depletion following 3 rounds of chemotherapy (PT INR did not correct significantly after Kcentra dosed pharmacy) - INR is 1.6 most recently. 5. Paroxysmal atrial fibrillation, chronic and stable. - was on apixaban which has been held. Was given Kcentra initially on admission. - Currently in sinus rhythm 6. Chronic hyponatremia, chronic and stable. 7. 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 - follows with oncology at multiple locations per chart review. 8. Acute cystitis secondary to E. coli, present on admission and improved. - ceftriaxone initially, then Cefepime. 9. Hypokalemia/hypomagnesemia (from diuresis), new and active. - replete IV today Plan: -NPO -cleared for surgery today -replete K/Mg IV -continue Lasix 60 q.12 hours for improved diuresis and wean oxygen. -continue Cefepime -discussed level care with the patient and son, they do conveyed that she wishes surgery and wants to avoid any further active treatment for cancer and pursue treatments that will keep her comfortable which includes a palliative pending hip repair -continue to wean off oxygen Code: DNR, surrogate is patient's spouse DVT: SCDs. Resume home apixaban after OR. IH PROFEE Staff Counsel Document charge(s): No Charge Codes Subsequent inpatient/observation care: [id number]
[2024-06-11] MEDS: CEFEPIME 2 GM in SODIUM CHLORIDE 0.9% 100 ML IV (09:27)
[2024-06-11] MEDS: POTASSIUM CHLORIDE IN WATER 10 MEQ/100 ML PIGGYBACK 100 MEQ IV ×4 (09:34→14:30)
--- NOTE | 2024-06-11 10:42 | DIET.PN1 ---
Dietary Progress Note Assessment: f/u /consulted for low Bob score Pt going for surgery today. Was tolerating some Ensure last 2 days and some PO intakes yesterday, around 25%. Spouse was present helping order food options. Will continue ONS+ with meals as desired post-op, coordination of care with unit host. Ht: 170.18 cm Wt: 71.668 kg BMI: 24.7 Last BM: 06/08/24 (06/08/24 16:00) MNA: 14 Bob Score: 14 Diet: 06/11/24 08:58 NPO Diet Diet Modifications: NPO Type: Strict Nutrition Percent Meal Consumed 25% 06/10/24 18:00 Percent Meal Consumed 25% 06/09/24 11:36 Labs: RBC 3.19 X10^6/uL (4.0-5.2) L 06/10/24 11:20 Hgb 10.6 g/dL (12.0-16.0) L 06/10/24 11:20 Hct 30.8 % (36-46) L 06/10/24 11:20 Creatinine 0.95 mg/dL (0.52-1.04) 06/11/24 04:36 Electronically Signed by: Sepideh Escamilla 06/11/24 10:42 Clinical Dietitian [address] [address]
[2024-06-11] MEDS: MAGNESIUM SULFATE 2 GM/50 ML PIGGYBACK IV (11:21)
[2024-06-11] MEDS: HYDROMORPHONE 0.5 MG INJ IV (12:07)
--- NOTE | 2024-06-11 13:58 | CM.DPNOTE ---
DCP Cont Reviewed chart. Patient discussed in multidisciplinary rounds. Patient is down to 3L O2 and Dr Perkins has cleared her medically for hip pinning surgery. Awaiting surgery schedule. Emailed Felecia at [facility] Dr Perkins's updated prog note. Surgery date TBD. CM team following clinical course closely. Send updated clinical and therapy notes when available [facility]. PASRR to be completed closer to discharge- once post operative needs and are known. Home meds= Level 1 PASRR. JW
--- NOTE | 2024-06-11 15:23 | PM.PREOP ---
Pre-operative Note Interval Note History & Physical reviewed/Exam performed by Physician: Yes Changes to H&P: No
--- NOTE | 2024-06-11 15:28 | PM.PREOP ---
Pre-operative Note Interval Note History & Physical reviewed/Exam performed by Physician: Yes Changes to H&P: No H&P completed within 30 days and has changed as indicated here:: She has been medically stabilized. Her lung situation has improved in comparison to previously. Her and step daughter at bedside and the patient and the family was anxious to proceed with hip surgery. Risks benefits and complications were discussed in detail. She is obviously high risk but she would still like to mobilize out of bed.
--- NOTE | 2024-06-11 15:35 | PM.OP.1 ---
Operative Date/Time/Diagnoses Date of procedure: 06/11/24 Time of procedure: 16:00 Pre-op diagnosis: Left femoral neck fracture Post-op diagnosis: same Procedure & Clinicians Procedure: Left hip unipolar replacement Same procedure as scheduled: Yes Indications: This is a 88-year-old female who fell and sustained a displaced left femoral neck fracture she would bought the operating room for left hip unipolar. She was extremely complicated past medical history with a history of known pancreatic cancer. There does not appear to be evidence of a metastasis. She was neutropenic and anticoagulated when she came in and she has now been in the hospital for more than a week being stabilized. After extensive discussion with the family and Internal Medicine it was felt that the patient was maximally stabilize consideration of possible surgery. She strongly desires surgery so that she can be mobilized out of bed to a chair and hopefully weight-bearing as tolerated on the left lower extremity. We discussed in detail risks benefits and possible complications. Surgeon: Shayla Begum Sports Athletic Trainer: Cheryl Terrazas Anesthesia Type: General Operative Notes Findings: Displaced left femoral neck fracture, soft bone, adequate stability Closure Type: primary Specimen(s): none sent Prosthetic devices, grafts, tissues, transplants, or devices: Begum and nephew cemented Synergy size 11, 44mm +8, Estimated Blood Loss (mL): 200 Blood products transfused: none Procedure in detail: The patient was seen in the pre-operative area, where the patient identified the left hip as the operative site and this was marked with my initials. The patient received pre-operative antibiotics and was taken to the operating room and placed on the operative table in the supine position after satisfactory anesthesia. A multimedia instructional designer out was performed. Patient was placed in the lateral decubitus position and all bony prominences were carefully padded and the arms were appropriately position. A PA was used for medical or surgical instrument maker was essential for intraoperative retraction and safe implantation of the components. The left lower extremity was prepared from the ankle to the iliac crest with ChloroPrep in the usual fashion and draped through sterile drapes. The hip was approached through posterolateral approach. Dissection was carried out down through skin and subcutaneous tissues. The fascia was opened. Gelpi retractors were placed. A Charnley retractor was placed. A small amount of inflamed bursa was resected. The piriformis was identified and protected. The other short external rotators and capsule were carefully stripped from the posterior aspect of the femur. They were tagged and carefully retracted. The femoral neck was brought up and an osteotomy was made of the residual femoral neck approximately 1 fingerbreadth above the lesser trochanter. The head was removed without difficulty. It was carefully sized. The acetabulum was meticulously irrigated with normal saline. There were [mild] changes in the acetabulum. The acetabulum was carefully protected with an E tape. The canal was opened with a box cutting osteotome, followed by a T-handled reamer and a lateralizing reamer. The tapered reamers were then used, followed by sequential broaching. A trial head and neck were then placed and the hip relocated and checked for leg length and stability. The patient was stable in the position of sleep, of squatting, and could be put through a range of motion with 45 degrees internal rotation without dislocation. At 90 degrees flexion, internal rotation to 70? was possible before dislocation. This was felt to be satisfactory and the appropriate components were opened, and the trials were removed. The femoral canal was sized and a distal cement restrictor was placed. The bone was meticulously cleaned with pulse lavage. The canal was packed with vaginal packing with epinephrine. Antibiotics cement was mixed and carefully pressurized into the femoral canal. The femoral component was placed without difficulty. A repeat trial reduction showed good range of motion and stability. We did a brief Betadine soak after the cement had hardened. Patient had good range of motion and stability. The final head and neck were placed after carefully irrigating the wound. The capsulomuscular flap was then repaired to the greater trochanter though an awl hole using the tag sutures. The short external rotators were repaired with nonabsorbable stitches. The fascia serge was closed with vicryl. The subcutaneous layer was closed with interrupted 3-0 Vicryl, and the skin with a running 3-0 V-Lock suture and surgical glue. An Aquacel Ag dressing was applied and the patient was taken to recovery having tolerated the procedure well. Complications: none Post-operative Condition: stable Disposition: Acute Care Plan for aftercare: The patient will be maintained on a standard total hip replacement protocol with weight bearing as tolerated and posterior hip precautions. The patient will receive eliquis and sequential compression devices for DVT prophylaxis. The patient will be discharged home when safe for the home environment.
[2024-06-11] MEDS: LACTATED RINGERS 1,000 ML 42 ML IV (16:02)
[2024-06-11] MEDS: VANCOMYCIN 1,000 MG in SODIUM CHLORIDE 0.9% 200 ML 200 MG IV (16:11)
--- NOTE | 2024-06-11 16:36 | SUR.OPER ---
Lateral on padded OR bed. Gel axillary roll. Arms secured on padded armboard with pillow supporting top arm. Padded hip positioner braces x4 - anterior and posterior chest and pelvis. Additional gel pad used anterior pelvis. Gel pad under bottom leg from knee to foot and secured with tape over sheet.
[2024-06-11] MEDS: TRANEXAMIC ACID 1,000 MG VIAL 2000 MG INJ ×2 (16:46→17:45)
[2024-06-11] MEDS: BUPIVACAINE LIPOSOME 266 MG/20 ML VIAL INJ (16:48)
[2024-06-11] MEDS: BUPIVACAINE 0.25% W/ EPI 30 ML VIAL 60 ML INJ (16:52)
[2024-06-11] MEDS: EPINEPHrine 1 MG/ML IRR (16:55)
[2024-06-11] MEDS: CEFAZOLIN 2 GM/100 ML PREMIX 100 ML IV (17:30)
[2024-06-11] MEDS: LACTATED RINGERS 1,000 ML 100 ML IV ×2 (18:59→21:00)
[2024-06-11] MEDS: ACETAMINOPHEN 325 MG TABLET 650 MG PO (19:02)
[2024-06-11] MEDS: APIXABAN 5 MG TABLET PO (20:21)
[2024-06-11] MEDS: OXYCODONE IR 5 MG TABLET PO (20:26)
--- NOTE | 2024-06-12 00:05 | PC.NURSE ---
Pt rendered and report given to Uzma Herrera RN @[facility].
[2024-06-12 02:00] VITALS: BP 112/62; PULSE 77; RESP 16; TEMP 36.2; O2SAT 96
[2024-06-12 04:45] LABS: Add Manual Diff / Slide Review NO; Basophils Absolute Auto 100 /uL (0-100); Basophils Percent Auto 0.4 % (0-2); Eosinophils Absolute Auto 0 /uL (0-450); Hematocrit 29.4 % (36-46); Hemoglobin 10.1 g/dL (12.0-16.0); Lymphocytes Absolute Auto 300 /uL (1100-4500); Lymphocytes Percent Auto 1.4 % (25-40); Mean Corpuscular HGB Conc 34.4 % (30-36); Mean Corpuscular Hemoglobin 33.1 PG (26-34); Mean Corpuscular Volume 96.3 fL (80-100); Monocytes Absolute Auto 500 /uL (0-900); Monocytes Percent Auto 2.2 % (3-14); Neutrophils Absolute Auto 19800 /uL (1500-7000); Platelet Count 133 X10^3/uL (150-400); Red Blood Cell Count 3.05 X10^6/uL (4.0-5.2); Red Cell Distribution Width 16.5 % (11.6-14.8); White Blood Cell Count 20.6 X10^3/uL (4.5-11.0)
[2024-06-12 04:54] LABS: Blood Urea Nitrogen 38 mg/dL (7-17); Calcium 8.4 mg/dL (8.4-10.2); Carbon Dioxide 29 mmol/L (22-32); Chloride 93 mmol/L (98-107); Estimated Glomerular Filt Rate 55 mL/min (>60); Glucose 141 mg/dL (80-110); HEMOLYSIS < 15 (0-50); Magnesium 2.3 mg/dL (1.6-2.3); Potassium 3.6 mmol/L (3.4-5.1); Sodium 128 mmol/L (137-145)
[2024-06-12 06:00] VITALS: BP 127/75; PULSE 80; RESP 20; TEMP 36; O2SAT 97
[2024-06-12] MEDS: LACTATED RINGERS 1,000 ML 100 ML IV (06:28)
--- NOTE | 2024-06-12 07:32 | PM.PN.IH.1 ---
Subjective Subjective Date Patient Seen: 06/12/24 Time Patient Seen: 08:25 Interval history: Hospital course: 06/04: Pain control is satisfactory white count still only 0.4 discussed with Orthopedic surgery and family and elected to delay until we can get satisfactory white blood cell count and reversal of the anticoagulation. Pharmacy consulted for dosing of Kcentra. Oral vitamin KA given for suspicion of vitamin K depletion after last chemotherapy as the cause of the elevated PT INR 06/05: No acute distress today pain control the satisfactory white blood cell count 4.6 PT INR de-escalated from 2.5-1.9 after 5 mg of p.o. vitamin K. we will check another CBC expect to see continued escalation of white blood cell count after the previous 3 doses of granulocyte colony-stimulating factor and another dose of oral vitamin K 10 mg to correct the coagulopathy for a suspected vitamin K deficiency following chemotherapy. Per discussion with Orthopedic surgery patient maybe optimized for surgery by Friday the goal white blood cell count of 7 at goal PT INR of 1.4 or less 06/07: no complaints from patient, INR is much improved and WBC cound improved. However in the afternoon developing new hypoxia, on 2L, no symptoms. CXR was read as possible drug reaction, my interpretation was bibasilar atelectasis. 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 Increased O2 requirements throughout the day. Ordered CTA which showed no large central occlusion but poor distal artery filling. Discussed with pulmonology, for now recommended change to cefepime, diuresis. If no improvement consider bronchoscopy. Surgery cancelled given new hypoxia. 06/09 She was comfortable on oxygen (8-10 L), denies any coughing. She does have leg edema. CT was reviewed and looks like there maybe a degree of pulmonary edema. She was diuresed, and did note that she wants to have primarily palliative efforts moving forward including a palliative pinning of her hip if feasible. She does not plan to continue cancer treatment. 06/10: No new events 06/11: Patient reports that she is feeling better, persistently weak with left hip pain. Oxygen is down to 3 L today. 06/12: She underwent left hip hemiarthroplasty yesterday without incident. Oxygen is at 4L this morning. She is sitting up eating breakfast. Exam Vital Signs (past 8 hours): - 06/12/24 02:00 06/12/24 06:00 Temperature 97.2 F L 96.8 F L Pulse Rate 77 80 Respiratory Rate 16 20 Blood Pressure 112/62 127/75 Pulse Oximetry 96 97 Oxygen Flow Rate 4.5 4.5 Fraction of Inspired Oxygen 28 SaO2/FiO2 Ratio 328 Oxygen Delivery Method Oximask Oxygen Flow Rate 4.5 Narrative Exam Narrative: NAD, alert and oriented. Fluent speech. Frail and underweight. Comfortable on 10 L of oxygen N/C. Lungs are clear, normal rate and effort. Heart is regular, no murmur gallop or rub. Abdomen is soft, non distended. Extremities with 1+ edema. Hip bandage in place is clean, dry and intact. Distal neurovascular status intact. Objective Labs 06/12/24 04:31 06/12/24 04:31 Labs: Laboratory Results - last 24 hr 06/12/24 04:31 WBC 20.6 H RBC 3.05 L Hgb 10.1 L Hct 29.4 L MCV 96.3 MCH 33.1 MCHC 34.4 RDW 16.5 H Plt Count 133 L Neut % (Auto) 96.0 H Lymph % (Auto) 1.4 L Beckham % (Auto) 2.2 L Eos % (Auto) 0.0 L Baso % (Auto) 0.4 Neut # (Auto) 63552 H Lymph # (Auto) 300 L Beckham # (Auto) 500 Eos # (Auto) 0 Baso # (Auto) 100 Sodium 128 L Potassium 3.6 Chloride 93 L Carbon Dioxide 29 BUN 38 H Creatinine 1.00 Estimated GFR 55 L BUN/Creatinine Ratio 38.0 H Glucose 141 H Calcium 8.4 Magnesium 2.3 [facility] Surgical History Hx of bilateral cataract extraction (~2011) Social History household members: spouse Smoking Status: Former smoker alcohol intake: current Assessment & Plan Assessment & Plan narrative: 88-year-old female [facility] pancreatic cancer , admitted with L femoral neck fracture. who had chemotherapy 05/25/2024 and has elected no more further chemotherapy as it is not tolerable to her. 1. Acute respiratory failure with hypoxia, not present on admission and resolving. - not normally on O2 at home. - patient required up to 11L with rapid escalation in need for oxygen, CTA negative for PE, some ground glass opacities b/l lower lobes and small pleural effusions bilaterally. - differentials include filgrastim reaction (rare and unlikely per pulmonology), pulmonary edema, CHFpEF, and / or PNA. - improved on cefepime and diuresis 2. Left femoral neck fracture, pathologic due to a ground level fall, s/p unipolar replacement 06/11/2024. Present on admission and active. - per orthopedics - PT/OT 3. Neutropenia secondary to chemotherapy, present on admission and improved. - Stable response to 3 doses of granulocyte colony stimulation factor white blood cell count was 15 on 06/10. 4. Coagulopathy with elevated INR, present on admission and improved - possibly effect of apixaban but favor vitamin K depletion following 3 rounds of chemotherapy (PT INR did not correct significantly after Kcentra dosed pharmacy) - INR is 1.6 most recently. 5. Paroxysmal atrial fibrillation, chronic and stable. - was on apixaban which has been held. Was given Kcentra initially on admission. - Currently in sinus rhythm - apixiban resumed post-op 6. Chronic hyponatremia, chronic and stable. 7. 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 - follows with oncology at multiple locations per chart review. 8. Acute cystitis secondary to E. coli, present on admission and improved. - ceftriaxone initially, then Cefepime. 9. Hypokalemia/hypomagnesemia (from diuresis), new and active. - replete IV today Plan: -continue Lasix 60 q.12 hours for improved diuresis and wean oxygen. -continue Cefepime -continue to wean off oxygen Code: DNR, surrogate is patient's spouse DVT: SCDs. 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
--- NOTE | 2024-06-12 07:33 | PC.NURSE ---
Assumed care of patient at 23:30.
--- NOTE | 2024-06-12 07:52 | CM.DPNOTE ---
DCP note PHOTO PRINT SPECIALIST reviewed EMR Per chart, pt POD1 hip repair surgery. PT pending for today. will send clinicals/therapy notes to Felecia at [facility]/continue to coordinate with pt and family with DCP needs/preferences when available. Need PASRR P: anticipate dc to SNF at [facility] pending auth/medical stability. transport pending therapy recs. Will continue to follow closely for DCP coordination MARICEL Araya
[2024-06-12] MEDS: CHOLECALCIFEROL (VITAMIN D3) 1,000 UNIT TABLET 2000 UNIT PO (08:13)
[2024-06-12] MEDS: DOCUSATE 100 MG CAPSULE PO ×2 (08:13→20:18)
[2024-06-12] MEDS: POTASSIUM CHLORIDE 20 MEQ TAB PO (08:13)
[2024-06-12] MEDS: APIXABAN 5 MG TABLET PO ×2 (08:13→20:18)
--- NOTE | 2024-06-12 08:34 | PC.NURSE ---
Day shift: at shift change, pt is resting in bed, and on 3L O2. Denies pain, tingling, numbness, and nausea. Not ready to eat breakfast yet, but took sips of juice with meds.
[2024-06-12 08:37] VITALS: BP 113/65; PULSE 85; RESP 24; TEMP 36.1; O2SAT 97
--- NOTE | 2024-06-12 09:21 | P.PN_ITS ---
Subjective Subjective Date Patient Seen: 06/12/24 Time Patient Seen: 09:00 Interval history: Patient has slept through the night. Patient's pain is controlled with oral medication. ?Pain is localized to surgical site. ?Patient declines any new numbness or tingling at the surgical extremity. ?Patient denies any shortness of breath, dizziness, light-headedness, nausea, vomiting, fever or chills. Exam Vital Signs (past 8 hours): - 06/12/24 02:00 06/12/24 06:00 06/12/24 08:37 Temperature 97.2 F L 96.8 F L 97.0 F L Pulse Rate 77 80 85 Respiratory Rate 16 20 24 Blood Pressure 112/62 127/75 113/65 Pulse Oximetry 96 97 97 Oxygen Flow Rate 4.5 4.5 4.5 Fraction of Inspired Oxygen 28 SaO2/FiO2 Ratio 328 Oxygen Delivery Method Oximask Oxygen Flow Rate 4.5 Narrative Exam Narrative: 5/5 strength in hip flexors, quadriceps, hamstrings, DF, PF, EHL bilaterally. Sensation to light touch intact throughout BLE. Calves soft, compressible, nontender. Dressing placed intraoperatively CDI. SCDs on and functioning. Heel pads on. Patient on O2 mask but no shortness of breath during conversation. Resp Effort & Inspection: normal respiratory effort and able to speak in complete sentences Objective Labs 06/12/24 04:31 06/12/24 04:31 Labs: Laboratory Results - last 24 hr 06/12/24 04:31 WBC 20.6 H RBC 3.05 L Hgb 10.1 L Hct 29.4 L MCV 96.3 MCH 33.1 MCHC 34.4 RDW 16.5 H Plt Count 133 L Neut % (Auto) 96.0 H Lymph % (Auto) 1.4 L [place] % (Auto) 2.2 L Eos % (Auto) 0.0 L Baso % (Auto) 0.4 Neut # (Auto) 91390 H Lymph # (Auto) 300 L [place] # (Auto) 500 Eos # (Auto) 0 Baso # (Auto) 100 Sodium 128 L Potassium 3.6 Chloride 93 L Carbon Dioxide 29 BUN 38 H Creatinine 1.00 Estimated GFR 55 L BUN/Creatinine Ratio 38.0 H Glucose 141 H Calcium 8.4 Magnesium 2.3 PFSH Surgical History Hx of bilateral cataract extraction (~2011) Social History household members: spouse Smoking Status: Former smoker alcohol intake: current Assessment & Plan Post-op Postoperative Procedures: Procedures Operation Date: 06/11/24 16:00 Actual Procedure Side Surgeon p hip posterior unipolar cemented Left Shayla Begum MD Postoperative day: 1 Postoperative status: doing well Postoperative plan: routine post-op care and ambulate Postoperative plan narrative: Posterior Hip Pre-cautions. Ambulate and weight bear as tolerated with assistive devices. Eliquis 5mg bid DVT prevention. SCDs on while inpatient and resting in bed. Keep dressing clean and dry. Keep dressing on until first office visit. If dressing becomes dirty or disrupted, replace with appropriate sized dressing. Follow up in clinic in 2 weeks for wound check. Acute & chronic medical issues, pain medications and disposition per hospitalist. Time Spent With Patient Time with patient: less than 15 minutes Quality VTE Deep Vein Thrombosis/Pulmonary Embolism Present on Admission: No
[2024-06-12] MEDS: ACETAMINOPHEN 325 MG TABLET 650 MG PO ×2 (11:57→18:04)
--- NOTE | 2024-06-12 12:46 | DI.RAD.S_ITS ---
PROCEDURE: XR HIP W PEL IF DONE LT 2V INDICATIONS: postop TECHNIQUE: 2 view(s) of the hip acquired. COMPARISON: [facility], [place], XR HIP W PEL IF DONE LT 2V, 06/03/2024, 8:31. FINDINGS: Bones: Patient is status post left hip arthroplasty, with hardware components in expected positions. The hip joint appears congruent. The visualized bony structures appear intact. Soft tissues: Overlying postoperative changes are noted. No suspicious soft tissue densities. IMPRESSION: Expected post-operative appearance of a hip arthroplasty. Dictated by: Don Tovar M.D. on 06/12/2024 at 12:56 Approved by: Don Tovar M.D. on 06/12/2024 at 12:57
[2024-06-12 13:35] VITALS: O2SAT 97
--- NOTE | 2024-06-12 15:06 | PT.IIE ---
Current Diagnoses Coagulation defect, unspecified (06/03/24) Neutropenia, unspecified (06/03/24) Hypo-osmolality and hyponatremia (06/03/24) Hypokalemia (06/03/24) Fracture of unspecified part of neck of left femur, initial encounter for closed fracture (06/03/24) Personal history of malignant neoplasm of pancreas (06/03/24) Surgery Performed Operation Date: 06/11/24 16:00 Actual Procedures p hip posterior unipolar cemented(Left) - Shayla Begum MD Surgical History (Last Reviewed 06/12/24 @ 09:20 by Federico Perkins MD) Hx of bilateral cataract extraction (~2011) Physical Therapy Inpatient Evaluation/Re-Eval M1 PT/OT-IP Prior Functional Status Start: 06/12/24 14:40 Freq: NEEDED Status: Active Protocol: Document 06/12/24 14:44 AMB (Rec: 06/12/24 15:05 AMB [id number]) Medical Review Prior Functional Status Medical History Reviewed Yes Mobility and Gait Kristen was independently ambulating in the community, although was considering hospice due to current ongoing pancreatic cancer Social History Household Members spouse Living Arrangements House 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 in [place] when medically stable M2 PT-IP Current Condition Start: 06/12/24 14:40 Freq: NEEDED Status: Active Protocol: Document 06/12/24 14:44 AMB (Rec: 06/12/24 15:05 AMB [id number]) Physical Therapy Current Condition Current Condition Evaluation Date 06/12/24 Treatment Diagnosis L unipolar hip replacement s/p fx after fall posterior hip precautions Onset Date 06/12/24 M3 PT-IP Subjective Start: 06/12/24 14:40 Freq: NEEDED Status: Active Protocol: Document 06/12/24 14:44 AMB (Rec: 06/12/24 15:05 AMB [id number]) Subjective Physical Therapy Visit Type Type Initial Evaluation Visit Start Time 01:30 Visit Stop Time 02:30 Physical Therapy Visit Comments Patient Comments Pt willing to try to move, denies pain at rest, at bedside M4 PT-IP Mobility and Gait Start: 06/12/24 14:40 Freq: NEEDED Status: Active Protocol: Document 06/12/24 14:44 AMB (Rec: 06/12/24 15:05 AMB [id number]) PT-Bed Mobility Assessment Rolling Type of Rolling Log Rolling,Roll to Left Level of Assist Moderate Assistance,2 Person Assistance Supine to Sit Supine to Sit Moderate Assistance,2 Person Assistance,Bedrails Sit to Supine Sit to Supine Maximum Assistance,2 Person Assistance Scooting Scooting to Edge of Bed Moderate Assistance Scooting Up and Down in Bed Dependent PT-Transfer Assessment Comments Mobility Comments Kristen became quite dizzy when sitting up for the first time in 10 days (she had an extended hospital stay prior to surgery and was not sitting up during that time). Her blood pressure appeared good 120/70 while sitting, on 3L O2 and SpO2 at 98. She required ModA for supine to sit x2 and MaxA for sit to supine. Attempted sit to stand transfer and squat pivot transfer but she was too dizzy to tolerate even after 10 minutes in sitting and working on scooting to the EOB. Gait Assessment Comments Gait Comments not attempted M5 PT-IP Objective Assessments Start: 06/12/24 14:40 Freq: NEEDED Status: Active Protocol: Document 06/12/24 14:44 AMB (Rec: 06/12/24 15:05 AMB [id number]) Orientation Orientation/Cognition Level of Alertness Alert Strength Upper Extremity Strength Assessment Within Functional Limits Comments Strength Comments instructed in ankle pumps, quad sets and glute sets, able to actively flex knee from 0- ~20 degrees of flexion with hamstring curl, can perform terminal knee extension with effort, but does not have full active range at knee or hip M6 PT-IP Treatment Start: 06/12/24 14:40 Freq: NEEDED Status: Active Protocol: Document 06/12/24 14:44 AMB (Rec: 06/12/24 15:05 AMB [id number]) Physical Therapy Treatment Exercises Exercises Ankle Pumps,Gluteal Sets,Quad Sets Education Education Provided Precautions,Weight Bearing Status,Post-Op Packet,Safety M7 PT-IP Assessment and Plan Start: 06/12/24 14:40 Freq: NEEDED Status: Active Protocol: Document 06/12/24 14:44 AMB (Rec: 06/12/24 15:05 AMB [id number]) PT Summary Assessment and Plan Potential Rehabilitation Potential Good Status of Condition at Evaluation Evolving Summary Impairments Pain,ROM,Strength,Bed Mobility ,Transfers,Gait,Activity Tolerance Assessment Summary Kristen presents on day 0 after left unipolar hip replacement s/p fall and fracture. She had to wait 10 days in the hospital after fracturing her hip for surgery due to her health, she does have current pancreatic cancer . She was able to move into a sitting position at the edge of her bed with 2 person ModA, but became dizzy even after ~ 10 minutes sitting edge of bed and was not able to participate in a sit to stand or squat pivot transfer. She was able to follow directions well, but despite her blood pressure and SpO2 being WNL she was not able to tolerate transfers at this time. Encouraged her that having her sit EOB should help and tomorrow will go better. Needed MaxA x2 to get back into bed. Would recommend SNF placement when medically stable. Will need ambulance transport if mobility stays similar to current levels. Goals Bed Mobility Goal Minimal Assistance Transfer Goal Moderate Assistance Gait Goal Moderate Assistance Gait Distance 10 Days to Meet Goals 10 Frequency of Treatment Frequency Of Treatment Twice a Day Treatment Plan Physical Therapy Treatment Plan Bed Mobility Training,Transfer Training,Gait Training, Therapeutic Exercise,Balance Retraining,Post Op Education Other Recommendations and Next Treatment Bed mobility, transfers, Focus review HEP and posterior hip precautions Precautions Posterior Hip Precautions No Hip Flexion > 90 degrees,No Hip Internal Rotation,No Hip Adduction Weight Bearing Status Weight Bearing Status Weight Bear as Tolerated Recommendations To Nursing Amount of Assist Needed Mechanical Lift Discharge Recommendations PT Discharge Recommendations SNF Rehab Transportation Needs at Discharge Wheelchair/Cabulance,Stretcher /Ambulance - PT assist 2
[2024-06-12 20:00] VITALS: BP 117/68; PULSE 80; RESP 19; TEMP 37; O2SAT 95
[2024-06-12 23:22] VITALS: O2SAT 95
--- NOTE | 2024-06-13 00:34 | PC.NURSE ---
Assumed care of patient 06/13/2024 at 0010
[2024-06-13] MEDS: POTASSIUM CHLORIDE 20 MEQ TAB PO (08:02)
[2024-06-13] MEDS: DOCUSATE 100 MG CAPSULE PO ×2 (08:02→21:09)
[2024-06-13] MEDS: CHOLECALCIFEROL (VITAMIN D3) 1,000 UNIT TABLET 2000 UNIT PO (08:02)
[2024-06-13] MEDS: APIXABAN 5 MG TABLET PO ×2 (08:02→21:09)
--- NOTE | 2024-06-13 08:13 | PM.PN.IH.1 ---
Subjective Subjective Date Patient Seen: 06/13/24 Time Patient Seen: 08:25 Interval history: Hospital course: 06/04: Pain control is satisfactory white count still only 0.4 discussed with Orthopedic surgery and family and elected to delay until we can get satisfactory white blood cell count and reversal of the anticoagulation. Pharmacy consulted for dosing of Kcentra. Oral vitamin KA given for suspicion of vitamin K depletion after last chemotherapy as the cause of the elevated PT INR 06/05: No acute distress today pain control the satisfactory white blood cell count 4.6 PT INR de-escalated from 2.5-1.9 after 5 mg of p.o. vitamin K. we will check another CBC expect to see continued escalation of white blood cell count after the previous 3 doses of granulocyte colony-stimulating factor and another dose of oral vitamin K 10 mg to correct the coagulopathy for a suspected vitamin K deficiency following chemotherapy. Per discussion with Orthopedic surgery patient maybe optimized for surgery by Friday the goal white blood cell count of 7 at goal PT INR of 1.4 or less 06/07: no complaints from patient, INR is much improved and WBC cound improved. However in the afternoon developing new hypoxia, on 2L, no symptoms. CXR was read as possible drug reaction, my interpretation was bibasilar atelectasis. 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 Increased O2 requirements throughout the day. Ordered CTA which showed no large central occlusion but poor distal artery filling. Discussed with pulmonology, for now recommended change to cefepime, diuresis. If no improvement consider bronchoscopy. Surgery cancelled given new hypoxia. 06/09 She was comfortable on oxygen (8-10 L), denies any coughing. She does have leg edema. CT was reviewed and looks like there maybe a degree of pulmonary edema. She was diuresed, and did note that she wants to have primarily palliative efforts moving forward including a palliative pinning of her hip if feasible. She does not plan to continue cancer treatment. 06/10: No new events 06/11: Patient reports that she is feeling better, persistently weak with left hip pain. Oxygen is down to 3 L today. 06/12: She underwent left hip hemiarthroplasty yesterday without incident. Oxygen is at 4L this morning. She is sitting up eating breakfast. 06/13: She is sitting up and states she feels stronger today. She ate half of her dinner last night. She has no complaints this morning. Anticipate discharge to [facility] tomorrow. Exam Vital Signs (past 8 hours): Fraction of Inspired Oxygen 24 SaO2/FiO2 Ratio 395 Oxygen Delivery Method Nasal Cannula Oxygen Flow Rate 1 Narrative Exam Narrative: NAD, alert and oriented. Fluent speech. Frail and underweight. Comfortable on 10 L of oxygen N/C. Lungs are clear, normal rate and effort. Heart is regular, no murmur gallop or rub. Abdomen is soft, non distended. Extremities with 1+ edema. Hip bandage in place is clean, dry and intact. Distal neurovascular status intact. Objective Imaging Multiple studies:: Radiologist's impression: Femur X-ray 06/12/2024: Expected post-operative appearance of a hip arthroplasty. CXR 06/07/2024: Left lung base consolidation and small effusion. Mildly diffuse interstitium. Findings likely represent infection, differential includes edema. Consider future imaging surveillance to assess for resolution. Normal heart size. Aortic calcifications. Degenerative osseous changes. Left port catheter is seen with tip projecting over the lower SVC. Chest CTA 06/08/2024: No central pulmonary embolism. Distal branches are not well opacified for evaluation. Mild increased vascularity with effusions suggestive of edema. Superimposed consolidations may represent atelectasis versus pneumonia. Partially visualized hepatic lesions previously present in 2023. Mild perihepatic and perisplenic fluid with appearance of cirrhosis. CXR 06/07/2024: Ill-defined ground-glass throughout the lungs, concerning for drug reaction or atypical infection /viral pneumonia. Femur X-ray 06/06/2024: Stable transcervical left femoral neck fracture. No more distal femur fracture is seen. Echo 06/09/2024: Interpretation Summary The ejection fraction is estimated to be 70-75%. Diastolic parameters suggest probable normal left ventricular diastolic function and normal filling pressures. The right ventricle is normal in size and function. No significant valvular abnormalities. Pulmonary artery pressures cannot be estimated because of the lack of a measurable TR jet velocity but the IVC suggests a CVP of around 3 mmHg. Labs 06/12/24 04:31 06/12/24 04:31 Labs: Laboratory Results - last 24 hr 06/10/24 06/10/24 06/11/24 11:20 20:56 04:36 WBC 15.3 H RBC 3.19 L Hgb 10.6 L Hct 30.8 L MCV 96.3 MCH 33.2 MCHC 34.4 RDW 16.1 H Plt Count 118 L Sodium 129 L 128 L Potassium 2.6 L* D 3.2 L 2.8 L Chloride 92 L 93 L Carbon Dioxide 30 31 BUN 24 H 29 H Creatinine 0.90 0.95 Estimated GFR > 60 58 L BUN/Creatinine Ratio 26.7 H 30.5 H Glucose 138 H 105 Calcium 7.9 L 7.8 L Magnesium 1.7 1.6 Total Bilirubin 0.7 AST 40 H ALT 29 Alkaline Phosphatase 171 H Total Protein 4.8 L Albumin 2.3 L Globulin 2.5 Albumin/Globulin Ratio 0.9 L PFSH Surgical History Hx of bilateral cataract extraction (~2011) Social History household members: spouse Smoking Status: Former smoker alcohol intake: current Assessment & Plan Assessment & Plan narrative: 88-year-old female PMH pancreatic cancer , admitted with L femoral neck fracture. who had chemotherapy 05/25/2024 and has elected no more further chemotherapy as it is not tolerable to her. 1. Acute respiratory failure with hypoxia, not present on admission and resolving. - not normally on O2 at home, patient required up to 11L with rapid escalation in need for oxygen, CTA negative for PE, some ground glass opacities b/l lower lobes and small pleural effusions bilaterally. - differentials include filgrastim reaction (rare and unlikely per pulmonology), pulmonary edema, CHFpEF, and / or PNA. - improved on cefepime and diuresis, on 1 L O2 this morning. 2. Left femoral neck fracture, pathologic due to a ground level fall, s/p unipolar replacement 06/11/2024. Present on admission and active. - per orthopedics - PT/OT 3. Neutropenia secondary to chemotherapy, present on admission and improved. - Stable response to 3 doses of granulocyte colony stimulation factor white blood cell count was 15 on 06/10. 4. Coagulopathy with elevated INR, present on admission and improved - possibly effect of apixaban but favor vitamin K depletion following 3 rounds of chemotherapy (PT INR did not correct significantly after Kcentra dosed pharmacy) - INR is 1.6 most recently. 5. Paroxysmal atrial fibrillation, chronic and stable. - was on apixaban which has been held. Was given Kcentra initially on admission. - Currently in sinus rhythm - apixiban resumed post-op 6. Chronic hyponatremia, chronic and stable. 7. 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 - follows with oncology at multiple locations per chart review. 8. Acute cystitis secondary to E. coli, present on admission and improved. - ceftriaxone initially, then Cefepime. 9. Hypokalemia/hypomagnesemia (from diuresis), new and active. - replete IV today Plan: -stop Lasix -stop Cefepime -continue to wean off oxygen -DC to [facility] SNF tomorrow Code: DNR, surrogate is patient's spouse DVT: SCDs. 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
[2024-06-13] MEDS: ACETAMINOPHEN 325 MG TABLET 650 MG PO ×2 (11:18→16:59)
--- NOTE | 2024-06-13 11:18 | PT.IPTN ---
Current Diagnoses Coagulation defect, unspecified (06/03/24) Neutropenia, unspecified (06/03/24) Hypo-osmolality and hyponatremia (06/03/24) Hypokalemia (06/03/24) Fracture of unspecified part of neck of left femur, initial encounter for closed fracture (06/03/24) Personal history of malignant neoplasm of pancreas (06/03/24) Surgery Performed Operation Date: 06/11/24 16:00 Actual Procedures p hip posterior unipolar cemented(Left) - Shayla Begum MD Physical Therapy Treatment Note M2 PT-IP Current Condition Start: 06/12/24 14:40 Freq: NEEDED Status: Active Protocol: Document 06/12/24 14:44 AMB (Rec: 06/12/24 15:05 AMB [id number]) Physical Therapy Current Condition Current Condition Evaluation Date 06/12/24 Treatment Diagnosis L unipolar hip replacement s/p fx after fall posterior hip precautions Onset Date 06/12/24 M3 PT-IP Subjective Start: 06/12/24 14:40 Freq: NEEDED Status: Active Protocol: Document 06/13/24 10:45 MB (Rec: 06/13/24 11:18 MB Desktop) Subjective Physical Therapy Visit Type Type Treatment Note Visit Start Time 10:45 Visit Stop Time 11:08 Number of MILLED RUBBER TENDER Visits 0 Physical Therapy Visit Comments Patient Comments Pt denies pain at rest and after much conversation with her, her and nsg, states that she does not need pain medication before PT. Pt does not recall any posterior hip precautions. M4 PT-IP Mobility and Gait Start: 06/12/24 14:40 Freq: NEEDED Status: Active Protocol: Document 06/13/24 10:45 MB (Rec: 06/13/24 11:18 MB Desktop) PT-Bed Mobility Assessment Rolling Type of Rolling Roll to Left Level of Assist Moderate Assistance,2 Person Assistance Supine to Sit Supine to Sit Moderate Assistance,2 Person Assistance,Head of Bed Elevated,Bedrails Sit to Supine Sit to Supine Total Assistance,2 Person Assistance Scooting Scooting to Edge of Bed Maximum Assistance Scooting Up and Down in Bed Dependent PT-Transfer Assessment Sit to and From Stand Sit to and from Stand Maximum Assistance,2 Person Assistance,Use of Upper Extremities Equipment Transfer Assistive Device Gait Belt,Front Wheeled Walker Comments Mobility Comments Pt does not make much effort to assist with mobility, has confusion with functional commands. +2 max A to get to standing with RW and also pushing up from the bed. +2 mod A for static standing with RW. Pt states she cannot take a step and so repositioned back in the bed. O2 sats on RA are 96% at rest in supine and decrease to 87% with sitting and so redonned 0.5L O2. BP and HR in LUE are 129/61, 103- 107 BPM in sitting. PT-Balance Assessment Sitting Balance and Reactions Static Sitting Balance Ability Poor Dynamic Sitting Balance Ability Poor Standing Balance and Reactions Static Standing Balance Ability Poor Dynamic Standing Balance Ability Poor Device Used RW M5 PT-IP Objective Assessments Start: 06/12/24 14:40 Freq: NEEDED Status: Active Protocol: Document 06/12/24 14:44 AMB (Rec: 06/12/24 15:05 AMB [id number]) Orientation Orientation/Cognition Level of Alertness Alert Strength Upper Extremity Strength Assessment Within Functional Limits Comments Strength Comments instructed in ankle pumps, quad sets and glute sets, able to actively flex knee from 0- ~20 degrees of flexion with hamstring curl, can perform terminal knee extension with effort, but does not have full active range at knee or hip M6 PT-IP Treatment Start: 06/12/24 14:40 Freq: NEEDED Status: Active Protocol: Document 06/13/24 10:45 MB (Rec: 06/13/24 11:18 MB Desktop) Physical Therapy Treatment Education Education Provided Precautions M7 PT-IP Assessment and Plan Start: 06/12/24 14:40 Freq: NEEDED Status: Active Protocol: Document 06/13/24 10:45 MB (Rec: 06/13/24 11:18 MB Desktop) PT Summary Assessment and Plan Potential Rehabilitation Potential Fair Status of Condition at Evaluation Evolving Summary Impairments Pain,ROM,Strength,Balance, Coordination,Cognition,Bed Mobility,Transfers,Gait, Activity Tolerance Progress Towards Goals Slow Progress - Other Assessment Summary Pt has trouble following functional commands for mobility today and requires 2 person assistance. She is able to get to standing with +2 max A and stand for about 30 sec with RW and +2 mod A. She does not recall any posterior hip precautions today. present for treatment. Goals Bed Mobility Goal Contact Guard Assistance Transfer Goal Minimal Assistance,Front Wheeled Walker Gait Goal Minimal Assistance,Front Wheel Walker Gait Distance 10 Days to Meet Goals 5 Frequency of Treatment Frequency Of Treatment Once a Day Other frequency . Treatment Plan Physical Therapy Treatment Plan Bed Mobility Training,Transfer Training,Gait Training, Therapeutic Exercise,Balance Retraining,Post Op Education, Discharge Planning,Hot or Cold Pack,Neuromuscular Re-ed, Coordination Retraining,Manual Therapy Other Recommendations and Next Treatment Review posterior hip Focus precautions again, progress mobility, exercises Precautions Other Precautions Dr. Begum's orders from state hip not bent more than 70 deg and no crossing legs or IR of operated leg Weight Bearing Status Weight Bearing Status Weight Bear as Tolerated Recommendations To Nursing Amount of Assist Needed Mechanical Lift Discharge Recommendations PT Discharge Recommendations SNF Rehab Transportation Needs at Discharge Stretcher/Ambulance
--- NOTE | 2024-06-13 12:29 | P.PN_ITS ---
Subjective Subjective Interval history: Patient is status post surgery for left hip fracture. Patient is doing very well today. Was able to sit at the edge of the bed with physical therapy. Has not ambulated yet. Good pain control. Exam Vital Signs (past 8 hours): Fraction of Inspired Oxygen 24 SaO2/FiO2 Ratio 395 Oxygen Delivery Method Nasal Cannula Oxygen Flow Rate 1 Objective Labs 06/12/24 04:31 06/12/24 04:31 [facility] Surgical History Hx of bilateral cataract extraction (~2011) Social History household members: spouse Smoking Status: Former smoker alcohol intake: current Assessment & Plan Post-op Postoperative Procedures: Procedures Operation Date: 06/11/24 16:00 Actual Procedure Side Surgeon p hip posterior unipolar cemented Left Shaylapierre Begum MD Postoperative day: 2 Postoperative plan narrative: Postoperative day 2. Left hemiarthroplasty. Patient is doing well. We will continue to mobilize with physical therapy and patient will eventually need SNF placement. Quality VTE Deep Vein Thrombosis/Pulmonary Embolism Present on Admission: No
[2024-06-13 13:29] VITALS: O2SAT 94
--- NOTE | 2024-06-13 14:32 | CM.DPC ---
DCP Cont: SW faxed updated clinicals (MD notes, Ortho notes, PT eval and ongoing notes) from yesterday Sat and today Sun to [facility] to use to submit to [employer] for SNF auth. JENNA met bedside with pt who was sleeping, spouse, and adult son and updated on the process of [employer] review for SNF auth and also discussed likely w/c van for transport if pt can tolerate it vs non emergency ambulance but the risk of possible out of pocket expense with BLS if insurance doesn't cover. They acknowledged understanding and currently feel pt could likely tolerate w/c van at d/c but will confirm with nursing and PT closer to discharge. MARICEL Barton
[2024-06-13 19:37] VITALS: PULSE 62; O2SAT 94
[2024-06-13 21:25] VITALS: BP 103/63; PULSE 90; RESP 16; TEMP 36.4; O2SAT 97
--- NOTE | 2024-06-14 00:12 | PC.NURSE ---
Per dayshift nurse pt jorgensen catheter was removed on 06/13/24 at 1730. pt now has an external female catheter in place. Pt hasn't voided yet at of 06/14/24 [id number]
[2024-06-14] MEDS: ACETAMINOPHEN 325 MG TABLET 650 MG PO ×2 (06:43→17:36)
[2024-06-14 08:00] VITALS: BP 112/68; PULSE 92; RESP 19; TEMP 36.6; O2SAT 95
--- NOTE | 2024-06-14 08:03 | PM.PNPO.1 ---
Subjective Subjective Interval history: Patient's pain is controlled with oral medication. ?Pain is localized to surgical site. ?Patient declines any new numbness or tingling at the surgical extremity. ?Patient denies any shortness of breath, dizziness, light-headedness, nausea, vomiting, fever or chills. Exam Vital Signs (past 8 hours): Fraction of Inspired Oxygen 24 SaO2/FiO2 Ratio 391 Oxygen Delivery Method Nasal Cannula,Humidification Oxygen Flow Rate 0 Narrative Exam Narrative: 5/5 strength in hip flexors, quadriceps, hamstrings, DF, PF, EHL bilaterally. Sensation to light touch intact throughout BLE. Calves soft, compressible, nontender. Dressing placed intraoperatively CDI. Objective Labs 06/12/24 04:31 06/12/24 04:31 PFSH Surgical History Hx of bilateral cataract extraction (~2011) Social History household members: spouse Smoking Status: Former smoker alcohol intake: current Assessment & Plan Post-op Postoperative Procedures: Procedures Operation Date: 06/11/24 16:00 Actual Procedure Side Surgeon p hip posterior unipolar cemented Left Shayla Begum MD Postoperative day: 3 Postoperative status: doing well Postoperative plan: routine post-op care and ambulate Postoperative plan narrative: Posterior Hip Pre-cautions. Ambulate and weight bear as tolerated with assistive devices. Eliquis 5mg bid DVT prevention. SCDs on while inpatient and resting in bed. Keep dressing clean and dry. Keep dressing on until first office visit. If dressing becomes dirty or disrupted, replace with appropriate sized dressing. Follow up in clinic in 2 weeks for wound check. Acute & chronic medical issues, pain medications and disposition per hospitalist. Time Spent With Patient Time with patient: less than 15 minutes Quality VTE Deep Vein Thrombosis/Pulmonary Embolism Present on Admission: No
[2024-06-14 09:05] LABS: Hematocrit 31.7 % (36-46); Hemoglobin 10.6 g/dL (12.0-16.0); Mean Corpuscular HGB Conc 33.5 % (30-36); Mean Corpuscular Hemoglobin 32.5 PG (26-34); Mean Corpuscular Volume 97.1 fL (80-100); Platelet Count 207 X10^3/uL (150-400); Red Blood Cell Count 3.26 X10^6/uL (4.0-5.2); Red Cell Distribution Width 16.9 % (11.6-14.8)
[2024-06-14 09:07] LABS: Add Manual Diff / Slide Review YES
[2024-06-14] MEDS: DOCUSATE 100 MG CAPSULE PO ×2 (09:16→20:47)
[2024-06-14] MEDS: APIXABAN 5 MG TABLET PO ×2 (09:16→20:47)
[2024-06-14] MEDS: CHOLECALCIFEROL (VITAMIN D3) 1,000 UNIT TABLET 2000 UNIT PO (09:16)
[2024-06-14] MEDS: POTASSIUM CHLORIDE 20 MEQ TAB PO (09:16)
[2024-06-14] MEDS: polyethylene glycoL 3350 17 GM POWD.PACK PO (09:16)
[2024-06-14 09:19] LABS: Anisocytosis 1+; Neutrophils Absolute Manual 14250 /uL (3000-5900); Total Cells Counted 100
[2024-06-14 09:55] LABS: BUN Creatinine Ratio 43.7 (6-22); Blood Urea Nitrogen 45 mg/dL (7-17); Calcium 8.8 mg/dL (8.4-10.2); Carbon Dioxide 31 mmol/L (22-32); Chloride 93 mmol/L (98-107); Estimated Glomerular Filt Rate 53 mL/min (>60); Glucose 112 mg/dL (80-110); HEMOLYSIS < 15 (0-50); Potassium 3.5 mmol/L (3.4-5.1); Sodium 128 mmol/L (137-145)
--- NOTE | 2024-06-14 12:33 | CM.DPNOTE ---
Addendum entered by MARICEL Araya 06/14/24 16:08: no auth as of 1600. DEDICATED LOCAL TRUCK DRIVER updated spouse/pt in room. spouse plans to call [employer] to attempt to expedite auth. DEDICATED LOCAL TRUCK DRIVER emailed Felecia at [facility] updated clinicals for their team to continue to review. hopeful for [employer] SNF auth for dc tomorrow. will continue to follow closely SL Original Note: DCP Note DEDICATED LOCAL TRUCK DRIVER reviewed EMR. emailed updated clinicals to Felecia at [facility]. Auth still pending as of 1230. per RN, no BM in 6 days. DEDICATED LOCAL TRUCK DRIVER updated provider. Per PT, rec stretcher transprot. DEDICATED LOCAL TRUCK DRIVER met with pt and spouse in room. updated on pending auth. reviewed BLS vs wc van transport. spouse and pt express verbal understanding that there may be a bill associated with BLS and preference is BLS transport at this time. asked this DEDICATED LOCAL TRUCK DRIVER update son Hayden as well. DEDICATED LOCAL TRUCK DRIVER updated son Hayden [phone] on above. appreciated updates. DEDICATED LOCAL TRUCK DRIVER completed BLS form in anticipation for transport. in packet with FS, and copy of POLST. DEDICATED LOCAL TRUCK DRIVER updated provider, provider reports can dc today if auth in place. P: Dc to [facility] pending ins auth, transport with BLS. PASRR completed. will continue to follow closely MARICEL Araya
--- NOTE | 2024-06-14 12:48 | PC.NURSE ---
Addendum entered by Kieran Castellanos R.N. 06/14/24 13:07: Wound photo update: updated photo taken today of buttocks. 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 Left proximal buttocks stage 2 pressure injury cleansed, and new allevyn dressing applied. Area is approximately 2cm x 2cm with blanchable redness, and peeling skin edges. Original Note:
--- NOTE | 2024-06-14 14:15 | PT.IPTN ---
Current Diagnoses Coagulation defect, unspecified (06/03/24) Neutropenia, unspecified (06/03/24) Hypo-osmolality and hyponatremia (06/03/24) Hypokalemia (06/03/24) Fracture of unspecified part of neck of left femur, initial encounter for closed fracture (06/03/24) Personal history of malignant neoplasm of pancreas (06/03/24) Surgery Performed Operation Date: 06/11/24 16:00 Actual Procedures p hip posterior unipolar cemented(Left) - Shayla Begum MD Physical Therapy Treatment Note M2 PT-IP Current Condition Start: 06/12/24 14:40 Freq: NEEDED Status: Active Protocol: Document 06/12/24 14:44 AMB (Rec: 06/12/24 15:05 AMB [id number]) Physical Therapy Current Condition Current Condition Evaluation Date 06/12/24 Treatment Diagnosis L unipolar hip replacement s/p fx after fall posterior hip precautions Onset Date 06/12/24 M3 PT-IP Subjective Start: 06/12/24 14:40 Freq: NEEDED Status: Active Protocol: Document 06/14/24 13:52 MB (Rec: 06/14/24 14:15 MB Desktop) Subjective Physical Therapy Visit Type Type Treatment Note Visit Start Time 13:52 Visit Stop Time 14:10 Number of INSULATION BOARD BACK TENDER Visits 0 Physical Therapy Visit Comments Patient Comments Pt sleeping soundly, awakens to PT voice and agreeable to try PT. Therapy Pain Assessment Pain When Pain Assessed At Rest Pain Present Pain Present Denied Pain M4 PT-IP Mobility and Gait Start: 06/12/24 14:40 Freq: NEEDED Status: Active Protocol: Document 06/14/24 13:52 MB (Rec: 06/14/24 14:15 MB Desktop) PT-Transfer Assessment Comments Mobility Comments PT sets up bed with HOB increased, pt's left hand on left bed rail and PT assisting with moving legs and guarding LLE and pt cannot provide any self-mobility assistance, returned bed to flat and dependent to scoot up to HOB with pad M5 PT-IP Objective Assessments Start: 06/12/24 14:40 Freq: NEEDED Status: Active Protocol: Document 06/12/24 14:44 AMB (Rec: 06/12/24 15:05 AMB [id number]) Orientation Orientation/Cognition Level of Alertness Alert Strength Upper Extremity Strength Assessment Within Functional Limits Comments Strength Comments instructed in ankle pumps, quad sets and glute sets, able to actively flex knee from 0- ~20 degrees of flexion with hamstring curl, can perform terminal knee extension with effort, but does not have full active range at knee or hip M6 PT-IP Treatment Start: 06/12/24 14:40 Freq: NEEDED Status: Active Protocol: Document 06/14/24 13:52 MB (Rec: 06/14/24 14:15 MB Desktop) Physical Therapy Treatment Exercises Exercises Ankle Pumps,Gluteal Sets,Quad Sets,Heel Slides Other Treatments Other Treatment Performed Pt cues and assistance, counting out 20 APs, 10 reps QS, AAROM for heel slides B and cues for GS x10 M7 PT-IP Assessment and Plan Start: 06/12/24 14:40 Freq: NEEDED Status: Active Protocol: Document 06/14/24 13:52 MB (Rec: 06/14/24 14:15 MB Desktop) PT Summary Assessment and Plan Potential Rehabilitation Potential Poor Status of Condition at Evaluation Evolving Summary Impairments Pain,ROM,Strength,Balance, Coordination,Cognition,Bed Mobility,Transfers,Gait, Activity Tolerance Progress Towards Goals Slow Progress - Other Assessment Summary Pt has trouble following all commands today and is unable to progress with bed mobility, initiated post-op LE exercises in bed. B LEs are edematous. PT reviews posterior hip precautions including no flexion past 70 deg per order, no crossing legs and no IR left LE. Goals Bed Mobility Goal Contact Guard Assistance Transfer Goal Minimal Assistance,Front Wheeled Walker Gait Goal Minimal Assistance,Front Wheel Walker Gait Distance 10 Days to Meet Goals 5 Frequency of Treatment Frequency Of Treatment Once a Day Other frequency . Treatment Plan Physical Therapy Treatment Plan Bed Mobility Training,Transfer Training,Gait Training, Therapeutic Exercise,Balance Retraining,Post Op Education, Discharge Planning,Hot or Cold Pack,Neuromuscular Re-ed, Coordination Retraining,Manual Therapy Other Recommendations and Next Treatment Similar: Review posterior hip Focus precautions again, progress mobility, exercises Precautions Other Precautions Dr. Begum's orders from state hip not bent more than 70 deg and no crossing legs or IR of operated leg Weight Bearing Status Weight Bearing Status Weight Bear as Tolerated Recommendations To Nursing Amount of Assist Needed Mechanical Lift Discharge Recommendations PT Discharge Recommendations SNF Rehab Transportation Needs at Discharge Stretcher/Ambulance
--- NOTE | 2024-06-14 14:55 | OT.IP.EVAL ---
Current Diagnoses Coagulation defect, unspecified (06/03/24) Neutropenia, unspecified (06/03/24) Hypo-osmolality and hyponatremia (06/03/24) Hypokalemia (06/03/24) Fracture of unspecified part of neck of left femur, initial encounter for closed fracture (06/03/24) Personal history of malignant neoplasm of pancreas (06/03/24) Surgery Performed Operation Date: 06/11/24 16:00 Actual Procedures p hip posterior unipolar cemented(Left) - Shayla Begum MD Surgical History (Last Reviewed 06/13/24 @ 08:17 by Federico Perkins MD) Hx of bilateral cataract extraction (~2011) Occupational Therapy Inpatient Evaluation/Re-Eval M1 PT/OT-IP Prior Functional Status Start: 06/12/24 14:40 Freq: NEEDED Status: Active Protocol: Document 06/14/24 14:54 CGR (Rec: 06/14/24 15:14 CGR Desktop) Medical Review Prior Functional Status Medical History Reviewed Yes Communication Pt is an effective verbal communicator. Mobility and Gait Kristen was independently ambulating in the community, although was considering hospice due to current ongoing pancreatic cancer Activities of Daily Living and IADL's Pt was IND in all ADLs and IADLs Social History Household Members spouse Living Arrangements House Number of Floors (Floors) One Floor Number of Stairs To Enter/Railing? no steps to enter Home Environment Standard Height Toilet,High Toilet,Walk in Shower Home Equipment Front Wheel Walker,Shower Seat without Backrest,Hand Held Shower,Grab Bars Near Toilet, Grab Bars In Shower Employment Status Retired Additional Social History Comment planning on discharge to [facility] in [place] when medically stable. 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 M2 OT-IP Current Condition Start: 06/14/24 14:54 Freq: Status: Active Protocol: Document 06/14/24 14:54 CGR (Rec: 06/14/24 15:14 CGR Desktop) Occupational Therapy Current Condition Current Condition Evaluation Date 06/14/24 Treatment Diagnosis Fall with L uni polar hip replacement posterior approach Diagnosis Onset Date 06/03/24 Post Operative Precautions Posterior Hip Precautions No Hip Flexion > 90 degrees,No Hip Internal Rotation,No Hip Adduction Weight Bearing Status Weight Bearing Status Weight Bear as Tolerated M3 OT- IP Subjective and Pain Start: 06/14/24 14:54 Freq: Status: Active Protocol: Document 06/14/24 14:54 CGR (Rec: 06/14/24 15:14 CGR Desktop) OT- Subjective Occupational Therapy Visit Type Type Initial Evaluation Visit Start Time 14:21 Visit Stop Time 14:55 Notes Pt's present throughout. OT Pain Assessment Pain When Pain Assessed At Rest Pain Present Pain Present Denied Pain M4 OT- IP ADL's Start: 06/14/24 14:54 Freq: Status: Active Protocol: Document 06/14/24 14:54 CGR (Rec: 06/14/24 15:14 CGR Desktop) OT [id number] Comments OT Self-Feeding Comments not meal time OT ADL-Grooming Comments OT Grooming Comments not performed OT ADL-Oral Care Comments Oral Care Comments not performed OT ADL-Dressing General Eval Lower Body Dressing Ability Total Assistance Areas Needing Assistance Socks Comments OT Dressing Comments seated EOB OT ADL-Toileting General Evaluation Toileting Ability Total Assistance Comments OT Toileting Comments jorgensen OT ADL-Bathing Comments OT Bathing Comments not performed M5 OT- IP IADL's Start: 06/14/24 14:54 Freq: Status: Active Protocol: Document 06/14/24 14:54 CGR (Rec: 06/14/24 15:14 CGR Desktop) OT-Instrumental Activities of Daily Living Deficits IADL Deficits Identified Deficits Home Safety Awareness Awareness of Need for Assistance at Home Decreased Awareness Medication Management Medication Management Caregiver Administers Money Management Money Management Caregiver Provides Assistance Meal Preparation Meal Preparation No Deficits Identified 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 No Deficits Identified Driving Driving Comments Pt states 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 is 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 M6 OT- IP Functional Cognition Start: 06/14/24 14:54 Freq: Status: Active Protocol: Document 06/14/24 14:54 CGR (Rec: 06/14/24 15:14 CGR Desktop) Cognitive Factors Limiting Selfcare Function Cognitive Ability Level of Alertness Alert Patient Orientation Name,Age,Birthday,Situation Attention Span Ability Capable of Focused Attention, Capable of Sustained Attention Ability to Follow Commands Able to Follow One Step Commands with Increased Time, Able to Follow One Step Commands with Repetition Cognitive Comments Cognitive Assessment Comments Pt was not able to answer month, day or year and her states this is her normal. OT- Vision and Hearing OT- Hearing Assessment OT- Hearing Assessment WFL OT- Vision Assessment Visual Acuity Glasses For Reading Visual Attentiveness WFL Occular Pursuits WFL Visual Convergence WFL M7 OT- IP Mobility and Balance Start: 06/14/24 14:54 Freq: Status: Active Protocol: Document 06/14/24 14:54 CGR (Rec: 06/14/24 15:14 CGR Desktop) OT- Bed Mobility Assessment Supine to Sit Supine to Sit Assist Maximum Assistance,1 Person Assistance,Head of Bed Elevated,Bedrails Scooting Scooting to Edge of Bed Maximum Assistance,1 Person Assistance,Head of Bed Elevated,Bedrails OT-Transfer Assessment Sit to and From Stand Sit to and from Stand Maximum Assistance,1 Person Assistance Transfers Transfer Ability Maximum Assistance,1 Person Assistance Technique Transfer Destination Bed,Chair Transfer Technique Stand Step Pivot Devices Transfer Assistive Devices Gait Belt,Front Wheeled Walker Comments Mobility Comments Pt performed bed mobility with extra time and assist. Pt then stood at bedside with max x 1 and second person assist with CGA for safety. Pt took a few steps to the chair needing max x 1 with second person CGA for safety. Pt's knee did buckle at end of transfer but without incident. Pt then sat in chair with max x 1 but did not use hands to assist with stand to sit. OT- Gait Assessment Comments Gait Ability Comments transfer to chair only OT- Balance Assessment Sitting Balance and Reactions Static Sitting Balance Ability Fair Dynamic Sitting Balance Ability Fair M8 OT- IP Objective Assessments Start: 06/14/24 14:54 Freq: Status: Active Protocol: Document 06/14/24 14:54 CGR (Rec: 06/14/24 15:14 CGR Desktop) OT Gross Range of Motion Upper Extremity Range of Motion Assessment Within Functional Limits OT Strength Upper Extremity Strength Assessment Bilaterally Impaired Comments Strength Comments grossly 3+/5 throughout OT- Coordination Assessment Upper Extremity Finger to Nose Test Within Functional Limits Finger Tapping Test Within Functional Limits OT-Muscle Tone Assessment Muscle Tone WNL Yes OT Sensation Assessment Edema Edema Absent M9 OT- IP Assessment and Plan Start: 06/14/24 14:54 Freq: Status: Active Protocol: Document 06/14/24 14:54 CGR (Rec: 06/14/24 15:14 CGR Desktop) OT Summary Assessment and Plan Potential Rehabilitation Potential Good Analytic Complexity at Evaluation Moderate Summary OT Impairments Pain,Strength,Balance, Functional Cognition, Functional Mobility,Grooming, Dressing,Toileting,Bathing, Toilet Transfers,Shower Transfers,Activity Tolerance Progress Towards Goals Slow Progress due to Medical Issues Assessment Summary Pt presents as a moderate complexity evaluation s/p admit for fall with L hip fx and underwent 06/11 L unipolar posterior hip replacement. Pt was able to perform limited mobility on this date and transfer to the chair with max a (and second person assist for safety). Pt fatigues quickly and is grossly weak likely as a result of her pancreatic CA. Pt will continue to benefit from therapy services and is most appropriate for SNF. Goals Self-Feeding Goal Independent Grooming Goal Independent Dressing Goal Independent Toileting Goal Independent Bathing Goal Independent Toilet Transfer Goal Independent Shower Transfer Goal Independent Days to Meet Goals 30 Frequency of Treatment Other frequency 5x per week Treatment Plan OT Treatment Plan ADL Training,Functional Cognition Training,Functional Mobility,Patient/Family Education,Discharge Planning Other Treatment Recommendations and Next BSC transfer, ADLs at sink if Treatment Focus she is improved (with chair follow for endurance) Discharge Recommendations OT Discharge Recommendations SNF Rehab Transportation Needs at Discharge Wheelchair/Cabulance
--- NOTE | 2024-06-14 15:10 | PM.PN.1 ---
Subjective Subjective Interval history: Hospital course: 06/04: Pain control is satisfactory white count still only 0.4 discussed with Orthopedic surgery and family and elected to delay until we can get satisfactory white blood cell count and reversal of the anticoagulation. Pharmacy consulted for dosing of Kcentra. Oral vitamin KA given for suspicion of vitamin K depletion after last chemotherapy as the cause of the elevated PT INR 06/05: No acute distress today pain control the satisfactory white blood cell count 4.6 PT INR de-escalated from 2.5-1.9 after 5 mg of p.o. vitamin K. we will check another CBC expect to see continued escalation of white blood cell count after the previous 3 doses of granulocyte colony-stimulating factor and another dose of oral vitamin K 10 mg to correct the coagulopathy for a suspected vitamin K deficiency following chemotherapy. Per discussion with Orthopedic surgery patient maybe optimized for surgery by Friday the goal white blood cell count of 7 at goal PT INR of 1.4 or less 06/07: no complaints from patient, INR is much improved and WBC cound improved. However in the afternoon developing new hypoxia, on 2L, no symptoms. CXR was read as possible drug reaction, my interpretation was bibasilar atelectasis. 06/08: surgery specialist up to 5L O2, denies any subjective dyspnea, chest pain. Increased O2 requirements throughout the day. Ordered CTA which showed no large central occlusion but poor distal artery filling. Discussed with pulmonology, for now recommended change to cefepime, diuresis. If no improvement consider bronchoscopy. Surgery cancelled given new hypoxia. 06/09 She was comfortable on oxygen (8-10 L), denies any coughing. She does have leg edema. CT was reviewed and looks like there maybe a degree of pulmonary edema. She was diuresed, and did note that she wants to have primarily palliative efforts moving forward including a palliative pinning of her hip if feasible. She does not plan to continue cancer treatment. 06/10: No new events 06/11: Patient reports that she is feeling better, persistently weak with left hip pain. Oxygen is down to 3 L today. 06/12: She underwent left hip hemiarthroplasty yesterday without incident. Oxygen is at 4L this morning. She is sitting up eating breakfast. 06/13: She is sitting up and states she feels stronger today. She ate half of her dinner last night. She has no complaints this morning. 06/14: no complaints, awaiting SNF placement Exam Vital Signs (past 8 hours): - 06/14/24 08:00 06/14/24 08:30 Temperature 97.9 F Pulse Rate 92 H Respiratory Rate 19 Blood Pressure 112/68 Pulse Oximetry 95 Oxygen Delivery Method Room Air Oxygen Flow Rate 0 Fraction of Inspired Oxygen 24 SaO2/FiO2 Ratio 391 Oxygen Delivery Method Room Air Oxygen Flow Rate 0 Narrative Exam Narrative: NAD, alert and oriented. Fluent speech. Frail and underweight. Comfortable on 10 L of oxygen N/C. Lungs are clear, normal rate and effort. Heart is regular, no murmur gallop or rub. Abdomen is soft, non distended. Extremities with 1+ edema. Hip bandage in place is clean, dry and intact. Distal neurovascular status intact. Objective Labs 06/14/24 08:50 06/14/24 09:30 Labs: Laboratory Results - last 24 hr 06/14/24 06/14/24 08:50 09:30 WBC 15.0 H RBC 3.26 L Hgb 10.6 L Hct 31.7 L MCV 97.1 MCH 32.5 MCHC 33.5 RDW 16.9 H Plt Count 207 Neut % (Auto) Not Reportable Lymph % (Auto) Not Reportable [place] % (Auto) Not Reportable Eos % (Auto) Not Reportable Baso % (Auto) Not Reportable Lymph # (Auto) Not Reportable [place] # (Auto) Not Reportable Baso # (Auto) Not Reportable Total Counted 100 Seg Neutrophils % 92.0 H Band Neutrophils % 3.0 Lymphocytes % (Manual) 2.0 L Monocytes % (Manual) 3.0 Neutrophils # (Manual) 63491 H RBC Morphology See below Anisocytosis 1+ H Sodium 128 L Potassium 3.5 Chloride 93 L Carbon Dioxide 31 BUN 45 H Creatinine 1.03 Estimated GFR 53 L BUN/Creatinine Ratio 43.7 H Glucose 112 H Calcium 8.8 [facility] Surgical History Hx of bilateral cataract extraction (~2011) Social History household members: spouse Smoking Status: Former smoker alcohol intake: current Assessment & Plan Assessment & Plan narrative: 88-year-old female PMH pancreatic cancer , admitted with L femoral neck fracture. who had chemotherapy 05/25/2024 and has elected no more further chemotherapy as it is not tolerable to her. 1. Acute respiratory failure with hypoxia, not present on admission and resolving. Suspect acute on chronic systolic heart failure. - not normally on O2 at home, patient required up to 11L with rapid escalation in need for oxygen, CTA negative for PE, some ground glass opacities b/l lower lobes and small pleural effusions bilaterally. - differentials include filgrastim reaction (rare and unlikely per pulmonology), pulmonary edema, CHFpEF, and / or PNA. - improved on cefepime and diuresis, now on room air today! Completed course of cefepime in the hospital, cultures unremarkable except for cui-sensitive ecoli on urine culture. - will resume home furosemide but move to daily with persistent LE edema. 2. Left femoral neck fracture, pathologic due to a ground level fall, s/p unipolar replacement 06/11/2024. Present on admission and active. - per orthopedics - PT/OT 3. Neutropenia secondary to chemotherapy, present on admission and improved. - Stable response to 3 doses of granulocyte colony stimulation factor white blood cell count was 15 on 06/10. 4. Coagulopathy with elevated INR, present on admission and improved - possibly effect of apixaban but favor vitamin K depletion following 3 rounds of chemotherapy (PT INR did not correct significantly after Kcentra dosed pharmacy) - INR is 1.6 most recently. 5. Paroxysmal atrial fibrillation, chronic and stable. - was on apixaban which has been held. Was given Kcentra initially on admission. - Currently in sinus rhythm - apixiban resumed post-op - home dilt has been on hold, low normal BP, currently rate controlled. continue to hold 6. Chronic hyponatremia, chronic and stable. 7. 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 - follows with oncology at multiple locations per chart review. 8. Acute cystitis secondary to E. coli, present on admission and improved. - ceftriaxone initially, then Cefepime. 9. Hypokalemia/hypomagnesemia (from diuresis), new and active. - replete IV today Plan: -stopped IV furosemide, now off O2, resume home PO furosemide tomorrow -still off home diltiazem, but with adequate control of HR still. -likely discharge to SNF tomorrow. -add senna and biscodyl PO for lack of BM in multiple days. Code: DNR, surrogate is patient's spouse DVT: SCDs. Time-Based Coding :: [TOTAL MINUTES] spent with patient and on the chart (including review of chart, obtaining history, exam, reviewing outside data, placing orders, documenting exam and treatment plan, and counseling patient) on [DATE]. Quality VTE Deep Vein Thrombosis/Pulmonary Embolism Present on Admission: No
[2024-06-14] MEDS: BISACODYL 5 MG TABLET PO (16:08)
[2024-06-14 20:00] VITALS: BP 110/59; PULSE 99; RESP 20; TEMP 36.5; O2SAT 94
[2024-06-14] MEDS: SENNOSIDES 8.6 MG TABLET 17.2 MG PO (20:47)
[2024-06-14] MEDS: IBUPROFEN 400 MG TABLET PO (23:03)
[2024-06-15 06:05] LABS: Add Manual Diff / Slide Review NO; Basophils Absolute Auto 0 /uL (0-100); Basophils Percent Auto 0.2 % (0-2); Eosinophils Absolute Auto 0 /uL (0-450); Eosinophils Percent Auto 0.1 % (2-4); Hematocrit 26.6 % (36-46); Hemoglobin 8.9 g/dL (12.0-16.0); Lymphocytes Absolute Auto 300 /uL (1100-4500); Lymphocytes Percent Auto 2.8 % (25-40); Mean Corpuscular HGB Conc 33.5 % (30-36); Mean Corpuscular Hemoglobin 32.7 PG (26-34); Mean Corpuscular Volume 97.5 fL (80-100); Monocytes Absolute Auto 1000 /uL (0-900); Monocytes Percent Auto 8.4 % (3-14); Neutrophils Absolute Auto 10100 /uL (1500-7000); Neutrophils Percent Auto 88.5 % (50-75); Platelet Count 211 X10^3/uL (150-400); Red Blood Cell Count 2.73 X10^6/uL (4.0-5.2); Red Cell Distribution Width 17.3 % (11.6-14.8); White Blood Cell Count 11.4 X10^3/uL (4.5-11.0)
[2024-06-15 06:17] LABS: BUN Creatinine Ratio 48.4 (6-22); Blood Urea Nitrogen 46 mg/dL (7-17); Calcium 8.7 mg/dL (8.4-10.2); Carbon Dioxide 33 mmol/L (22-32); Chloride 96 mmol/L (98-107); Estimated Glomerular Filt Rate 58 mL/min (>60); Glucose 89 mg/dL (80-110); HEMOLYSIS < 15 (0-50); Potassium 3.5 mmol/L (3.4-5.1); Sodium 129 mmol/L (137-145)
[2024-06-15] MEDS: IBUPROFEN 400 MG TABLET PO (08:21)
[2024-06-15] MEDS: APIXABAN 5 MG TABLET PO (08:21)
[2024-06-15] MEDS: CHOLECALCIFEROL (VITAMIN D3) 1,000 UNIT TABLET 2000 UNIT PO (08:21)
[2024-06-15] MEDS: DOCUSATE 100 MG CAPSULE PO (08:21)
[2024-06-15] MEDS: POTASSIUM CHLORIDE 20 MEQ TAB PO ×2 (08:21→08:36)
[2024-06-15] MEDS: FUROSEMIDE 20 MG TABLET PO (08:21)
--- NOTE | 2024-06-15 11:54 | PM.DS.1 ---
History of Present Illness History of Present Illness Date Patient Seen: 06/15/24 Time Patient Seen: 11:55 Chief complaint: fall OOB L hip short/rotated Narrative: Per admitting provider, Chief complaint: Left hip pain after ground level fall due to impacted femoral neck fracture in a patient with neutropenia following chemotherapy for pancreatic carcinoma and anticoagulated History of present illness: A 62-year-old female with history of pancreatic cancer followed by Dr. Kris pérez at [facility] (telephone [phone]) slipped and fell this morning on her left side with severe hip pain. She was brought to the emergency department were hip film demonstrated impacted femoral neck fracture of the left hip. She is on palliative therapy her PCP has retired and is being followed by palliative care doctor. Patient has been functional however manages her activities of daily living independently including cooking for herself in maintaining her house. In addition to the hip fracture significant findings on evaluation in the ED notable for a white count of 0.4 with 46% neutrophils platelet count of 62 PT INR 2.5 and albumin of 2.5 X-ray was viewed by Orthopedic surgery on-call and if this were to go to surgery it would require bipolar hip replacement Discharge Providers Provider Date of admission: 06/03/24 09:10 Discharge Date: 06/15/24 Consults: 06/04/24 08:10 Consult to Orthopedic Surgery Routine Comment: Consulting Provider: Shayla Begum Reason for consultation: Left hip fracture Has provider been notified: Yes 06/10/24 11:21 Consult to Dietitian, Adult Routine Comment: Reason For Exam: pascale skin assessment PBA 06/11/24 15:31 Consult to Anesthesiology Routine Comment: Consulting Provider: Anesthesiologist Reason for consultation: Regional block for post operative pain control 06/11/24 18:30 Consult to Discharge Planning Routine Comment: Consult to Occupational Therapy Evaluate & Treat Comment: Physician Instructions: Evaluate and treat Consult to Physical Therapy Evaluate & Treat Comment: Physician Instructions: post op TIEN protocol 06/11/24 20:19 Consult to Dietitian, Adult Routine Comment: Reason For Exam: Pascale score 14 Discharge provider: Live Kuhn DO Summary Hospital Course Discharge Diagnosis: 1. Acute respiratory failure with hypoxia, not present on admission and resolving. Suspect acute on chronic systolic heart failure. 2. Left femoral neck fracture, pathologic due to a ground level fall, s/p unipolar replacement 06/11/2024. Present on admission and active. 3. Neutropenia secondary to chemotherapy, present on admission and improved. 4. Coagulopathy with elevated INR, present on admission and improved 5. Paroxysmal atrial fibrillation, chronic and stable. 6. Chronic hyponatremia, chronic and stable. 7. 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 8. Acute cystitis secondary to E. coli, present on admission and improved. 9. Hypokalemia/hypomagnesemia (from diuresis), new and active. Hospital Course: This is an 88-year-old female with a past medical history of metastatic pancreatic cancer, paroxysmal atrial fibrillation who was admitted to the hospital with a left femoral neck fracture. She was initially neutropenic, and was given filgrastim which did improve her WBC count. Also noted on admission was an acute cystitis were cultures grew E coli. Her surgery was delayed until her white blood cell counts increased, however with increasing white blood cell counts she required increasing amounts of oxygen up to as high as 11 L via high-flow nasal cannula. She was changed to cefepime at that time, and was diuresed, with eventual improvement. She was finally stable enough and had surgical repair of her left femoral neck on June 11. She was still on a few L of oxygen but was eventually able to wean off. Diuresis was stopped, and she completed course of cefepime for possible bacterial pneumomia, and she was resumed on her home oral furosemide. Her home diltiazem has also been on hold since admission, for soft BP. Her afib remained rate controlled despite holding. This may need to be restarted as an outpatient after discharge. Her postoperative course was largely uncomplicated, though she was [facility]. Her apixaban was restarted prior to discharge with her H&H remaining stable between 9 and 10 over the course of her stay. Patient also noted during her stay desire to stop chemotherapy moving forward for her cancer. Recommend outpatient hospice considerations after discharge. She is DNR/DNI after goals of care discussions here. Time Spent with Patient Time spent: Greater than 30 minutes Exam Vital Signs (past 8 hours): Fraction of Inspired Oxygen 24 SaO2/FiO2 Ratio 391 Oxygen Delivery Method Room Air Oxygen Flow Rate 0 Narrative Exam Narrative: NAD, alert and oriented. Fluent speech. Frail and underweight. Comfortable on 10 L of oxygen N/C. Lungs are clear, normal rate and effort. Heart is regular, no murmur gallop or rub. Abdomen is soft, non distended. Extremities with 1+ edema. Hip bandage in place is clean, dry and intact. Distal neurovascular status intact. Objective Labs 06/15/24 05:54 06/15/24 05:54 Labs: Laboratory Results - last 24 hr 06/15/24 05:54 WBC 11.4 H RBC 2.73 L Hgb 8.9 L Hct 26.6 L MCV 97.5 MCH 32.7 MCHC 33.5 RDW 17.3 H Plt Count 211 Neut % (Auto) 88.5 H Lymph % (Auto) 2.8 L [place] % (Auto) 8.4 Eos % (Auto) 0.1 L Baso % (Auto) 0.2 Neut # (Auto) 07625 H Lymph # (Auto) 300 L [place] # (Auto) 1000 H Eos # (Auto) 0 Baso # (Auto) 0 Sodium 129 L Potassium 3.5 Chloride 96 L Carbon Dioxide 33 H BUN 46 H Creatinine 0.95 Estimated GFR 58 L BUN/Creatinine Ratio 48.4 H Glucose 89 Calcium 8.7 PFSH Surgical History Hx of bilateral cataract extraction (~2011) Social History household members: spouse Smoking Status: Former smoker alcohol intake: current Discharge Plan Discharge Plan Patient Disposition: SNF Transfer to: [facility] Provider Discharge Comment: 88 F admitted with L femur fracture, s/p pinning. Course complicated by respiratory failure likely due to volume overload, now improved. Of note previous diltiazem held for soft BP and still with good rate control. Consider restarting if HR is elevated at [facility]. From Ortho: Posterior Hip Pre-cautions. Ambulate and weight bear as tolerated with assistive devices. Keep dressing clean and dry. Keep dressing on until first office visit. If dressing becomes dirty or disrupted, replace with appropriate sized dressing. Follow up in clinic in 2 weeks for wound check. Discharge orders & Medications Prescriptions: New sennosides [senna] 8.6 mg Tablet 17.2 mg PO BEDTIME Qty: 30 0RF polyethylene glycol 3350 17 gram Powder In Packet 17 gm PO DAILY PRN (Reason: Constipation) Qty: 14 0RF docusate sodium 100 mg Capsule 100 mg PO BID Qty: 30 0RF bisacodyl 5 mg Tablet,Delayed Release (Dr/Ec) 5 mg PO BID PRN (Reason: Constipation) Qty: 30 0RF oxycodone 5 mg Tablet 5 mg PO Q3H PRN (Reason: Pain, Moderate (4-6)) 7 Days Qty: 20 0RF Continued ondansetron 8 mg tablet,disintegrating 8 mg PO Q8H PRN (Reason: nausea/vomiting) furosemide 20 mg tablet 20 mg PO DAILY PRN (Reason: edema) Eliquis 5 mg tablet 5 mg PO BID potassium chloride 20 mEq tablet extended release 20 meq PO DAILY acetaminophen [Tylenol Extra Strength] 500 mg Tablet 500 mg PO Q6H PRN (Reason: Pain (Scale Score 1-3)) cholecalciferol (vitamin D3) [Vitamin D3] 50 mcg (2,000 unit) Capsule 50 mcg PO DAILY PreserVision AREDS-2 [id number]-mg Capsule 1 tab PO BID Discontinued diltiazem HCl 240 mg capsule,extended release 24hr 240 mg PO DAILY Discharge Health Status Multidrug resistant organism: No MDRO Precautions: [place] Diet/Activity/Treatments Diet: Regular Liquid consistency: Normal/Thin Food texture: Regular Activity: Posterior Catheter: 2-way [facility] Reason for rehabilitation: Post-operative therapy Rehab type: Physical therapy and Occupational therapy Restrictions to mobility: Posterior Hip Pre-cautions. Ambulate and weight bear as tolerated with assistive devices. Visit Report/Discharge Packet Stand Alone Forms: Patient Portal/API Quality VTE Deep Vein Thrombosis/Pulmonary Embolism Present on Admission: No
--- NOTE | 2024-06-15 11:56 | CM.DPNOTE ---
DCP Note GEOTHERMAL TECHNICIAN reviewed EMR per provider, medically cleared to dc today to SNF pending auth. Per Felecia at [facility], auth pending. GEOTHERMAL TECHNICIAN spoke with [facility] provider department for pre auth ([phone]) (Call ref #[id number]) report that pt is authorized now for SNF placement (there was an issue with the online system -per aena provider) cleared for dc today. will fax [facility] auth information GEOTHERMAL TECHNICIAN updated Felecia at [facility], can accept pt today. GEOTHERMAL TECHNICIAN spoke with Adeline from Ambulance, scheduled transport for 1330. GEOTHERMAL TECHNICIAN updated pt and spouse in room. confirm agreement with plan, confirm BLS transport preference acknowledge she may get a bill. GEOTHERMAL TECHNICIAN updated ELECTRICAL [employer]CHANIC/provider/RN. gave RN report number. gave RN BLS packet. provider workning on dc sum/med list/scripts. will send dc information with PASRR to [facility] when available P: DC today to [facility] via BLS 1330. will continue to follow as needed MARICEL Araya
[2024-06-15] MEDS: ACETAMINOPHEN 325 MG TABLET 650 MG PO (12:13)
--- NOTE | 2024-06-15 12:54 | CM.DPNOTE ---
DCP SNF Discharge MD completed discharge and secure emailed Felecia at [facility] pt's discharge summary, signed med list, script, MD orders, and PASRR to review for BLS transport today at 1330. JENNA updated RN and placed above in discharge packet. Constance Bates MSW
== END 2024-06-15 13:36 | DRG 521 ==
LOC: ED 09:10 → AC 09:11
PROVIDERS: Hospitalist; Internal Medicine; Orthopaedic Surgery; Admitting Provider Internal Medicine; Emergency Provider Emergency Medicine; Referring Provider Emergency Medicine; Visit Provider Internal Medicine
PROC: 0SRS0JZ Replacement of Left Hip Joint, Femoral Surface with Synthetic Substitute, Open Approach (ICD-10-PCS; CPT 27125; principal; 2024-06-11 16:00)
DX: M84.452A Pathological fracture, left femur, initial encounter for fracture (principal); I50.23 Acute on chronic systolic (congestive) heart failure; J96.01 Acute respiratory failure with hypoxia; J15.9 Unspecified bacterial pneumonia; C25.9 Malignant neoplasm of pancreas, unspecified; C78.7 Secondary malignant neoplasm of liver and intrahepatic bile duct; D68.9 Coagulation defect, unspecified; E87.1 Hypo-osmolality and hyponatremia; N30.00 Acute cystitis without hematuria; D70.1 Agranulocytosis secondary to cancer chemotherapy; E87.6 Hypokalemia; T45.1X5A Adverse effect of antineoplastic and immunosuppressive drugs, initial encounter; I48.0 Paroxysmal atrial fibrillation; B96.20 Unspecified Escherichia coli [E. coli] as the cause of diseases classified elsewhere; E83.42 Hypomagnesemia; Z79.01 Long term (current) use of anticoagulants; Z66 Do not resuscitate; Z87.891 Personal history of nicotine dependence; Z95.828 Presence of other vascular implants and grafts
CPT/HCPCS: 36415; 36591; 71045; 71275; 73502; 73552; 80048; 80053; 81001; 83735; 84132; 85007; 85025; 85027; 85610; 85730; 86850; 86900; 86901; 87077; 87086; 87186; 93306; 94762; 97162; 97166; 97530; 99283; 99284; C1776; C1713; J0171; J0330; J0666; J0690; J0692; J0696; J1100; J1171; J1447; J1642; J1938; J2405; J2704; J3010; J3475; J7168; Q9967